=== PATIENT | female | born 1980 | race Caucasian/White ===

== ENCOUNTER 2016-11-03 10:25 | Emergency (ER) | payer OTHER ==
[~2016-11-03] VITALS: Ht 162.6 cm; Wt 94.1 kg
[~2016-11-03 10:25] MED LIST: ALBUAER19 INH; BACL10TA PO; FLUT220A INH; GABA400C PO
[2016-11-03 10:35] VITALS: TEMP 36.9; Ht 162.6 cm; Wt 94.1 kg
[2016-11-03] MEDS ORDERED: KETOROLAC TROMETHAMINE 60 MG/2 ML VIAL IM STA (10:39)
[2016-11-03] MEDS ORDERED: HYDROmorphone INJ 2 MG/ML SYR/VIAL IM STA (10:39)
[2016-11-03] MEDS ORDERED: PROMETHAZINE HCL INJ 25 MG/ML 1 ML VIAL IM STA (10:39)
--- NOTE | 2016-11-03 11:20 | EMERGENCY ROOM VISIT NOTE ---
History Report prepared by Jerry: [place] Ty Under the Supervision of: Dr. Isael Landers M.D. First contact with patient: 10:38 Chief Complaint: HEADACHE Stated Complaint: MIGRAINE, FELL MAY HAVE BROKEN RIB ON RT SIDE History of Present Illness The patient is a 36 year old female who presents to the Emergency Room with complaints of increased pain to her right ribs, radiating around to her right back, since suffering a fall 5 days prior to arrival. Currently, she rates her discomfort as a 9/10, which increases with attempts of deep breaths. 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 The patient denies hitting her head or losing consciousness during the fall, however, she developed a right sided headache last evening, which she states is typical of her normal migraines. The patient wears Fentanyl patches due to her history of chronic pain, but as her pain has continued to worsen, she came to the ED for further evaluation today. Patient denies recent fevers, chills, chest pain, abdominal pain, nausea, vomiting, diarrhea, urinary symptoms, or abnormal swelling to her extremities. Patient does have a history of blood clots and is currently on aspirin qd, but denies the use of other blood thinning medications. 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 A total of 10 systems reviewed and were otherwise negative. Past Medical & Surgical Medical Problems: (1) Blood clot (2) Bronchitis (3) Cervical cancer (4) Cervicalgia (5) GERD (gastroesophageal reflux disease) (6) Migraine (7) Orthopedic surgery (8) Pneumonia (9) Spina bifida Surgical Problems: (1) History of brain surgery Family History Diabetes mellitus Hypertension Kidney disease/stones Social History Smoking Status: Current Every Day Smoker Alcohol Use: none Drug Use: none Marital Status: single Housing Status: lives with family Occupation Status: disabled Current/Historical Medications Scheduled Aspirin (Aspirin), 81 MG PO QPM Baclofen (Lioresal), 20 MG PO QID Cyanocobalamin (Vitamin B-12), 1,000 MCG PO QPM Fluticasone Propionate (Flovent Hfa), 2 PUFFS INH BID Folic Acid (Folvite), 2 MG PO HS Gabapentin (Neurontin), 400 MG PO TID Magnesium Oxide (Mag-Ox), 400 MG PO BID Oxaprozin (Daypro), 600 MG PO BID Pyridoxine (Vitamin B6), 100 MG PO BID Scheduled PRN Albuterol Hfa (Ventolin Hfa), 2 PUFFS INH Q4 PRN for SHORTNESS OF BREATH/WHEEZE Clonazepam (Klonopin), 0.5 MG PO BID PRN for Anxiety Hydroxyzine HCl (Hydroxyzine Pamoate), 25 MG PO QID PRN for Anxiety Melatonin (Melatonin), 5 MG PO HS PRN for Sleep Omeprazole (Omeprazole), 20 MG PO BID PRN for Dyspepsia Ondansetron Hcl (Zofran), 4 MG PO TID PRN for Nausea Rizatriptan Benzoate (Rizatriptan Benzoate), 10 MG PO UD PRN for Migraine Allergies Coded Allergies: Pregabalin (Verified Adverse Reaction, Intermediate, Vision changes., 11/03) Physical Exam Vital Signs Date Time Temp Pulse Resp B/P Pulse Ox O2 Delivery O2 Flow Rate FiO2 11/03/16 12:37 75 18 127/93 99 11/03/16 10:35 36.9 78 18 128/87 99 Room Air Physical Exam GENERAL: Patient is a healthy-appearing well-nourished 36 year old female. HEAD: Normocephalic atraumatic EYES: Ocular movements intact pupils equal and react to light OROPHARYNX mucous membranes are moist no exudates present no erythema or edema present NECK: Supple no nuchal rigidity CHEST: Good equal expansion LUNGS: Clear and equal to auscultation CARDIAC: Normal S1 and S2 CHEST: Tender to the 10th rib on the right. ABDOMEN: Soft nontender no guarding BACK: No CVA tenderness EXTREMITIES: No pain upon palpation normal muscle strength in all groups no clubbing cyanosis or edema NEURO: Patient is following commands is answering questions appropriately. Alert and oriented x3 Cranial Nerves 2-12 grossly intact Medical Decision & Procedures ER Provider Diagnostic Interpretation: X-ray results as stated below per interpretation by me and the radiologist: RIGHT RIBS UNILATERAL WITH PA CHEST CLINICAL HISTORY: Right rib pain status post trauma COMPARISON STUDY: Chest x-ray dated 04/12/2016 FINDINGS: The heart is normal in size. There is no pneumothorax. There is no focal pulmonary consolidation. No right-sided rib fractures are visualized. IMPRESSION: No evidence of pneumothorax. No right-sided rib fractures are visualized. Electronically signed by: Anand Kwan M.D. 11/03/2016 12:08 PM Dictated Date/Time: 11/03/2016 12:07 PM Medications Administered Medications (Trade) Dose Ordered Sig/Payton Route Start Time Stop Time Status Last Admin Dose Admin Ketorolac Tromethamine (Toradol Inj) 60 mg NOW STAT IM 11/03/16 10:39 11/03/16 10:41 DC 11/03/16 10:56 60 MG Promethazine HCl (Phenergan Inj) 25 mg NOW STAT IM 11/03/16 10:39 11/03/16 10:41 DC 11/03/16 10:56 25 MG Hydromorphone HCl (Dilaudid Inj) 2 mg NOW STAT IM 11/03/16 10:39 11/03/16 10:41 DC 11/03/16 10:56 2 MG Hydromorphone HCl (Dilaudid Inj) 1 mg NOW STAT IM 11/03/16 12:21 11/03/16 12:22 DC 11/03/16 12:30 1 MG ED Course 1038: Past medical records reviewed. The patient was evaluated in room C5. A complete history and physical examination was performed. 1039: Dilaudid 2 mg IM, Phenergan 25 mg IM and Toradol 60 mg IM were ordered. 1221: Upon reevaluation, the patient was feeling improved, but was requesting additional pain medication before being discharged. Dilaudid 1 mg IM was ordered. I updated her on the results of her radiology reports. Discharge instructions were also discussed at this time. She verbalized her understanding and agreement with the treatment plan, and she is now ready for disposition. Medical Decision Differential diagnosis: Etiologies such as migraine headache, meningitis, sinusitis, CO exposure, ICH, SAH, infection, tumor, headache, sinus thrombosis, arterial dissection, as well as others were entertained. This is a 36-year-old female who presents emergency department complaining of headache. The patient is well-known to me. She has no evidence of meningitis encephalitis on examination. The patient states this is her normal migraine. She is also complaining of right chest wall pain. The patient reports she had a fall that has been having pain in the ribs ever since. Patient reports that the pain is worse with deep breath. For this reason x-rays were taken of the ribs. This did not show any evidence of acute fracture. He was given Dilaudid as well as Toradol and Phenergan. Repeat examination revealed improvement the patient's symptoms. The patient was also given an incentive spirometer for chest wall pain. Patient was in agreement with the treatment plan. Impression Primary Impression: Rib pain on right side Additional Impression: Headache Scribe Attestation The scribe's documentation has been prepared under my direction and personally reviewed by me in its entirety. I confirm that the note above accurately reflects all work, treatment, procedures, and medical decision making performed by me. Departure Information Dispostion Home / Self-Care Referrals No Doctor, Assigned (PCP) Forms HOME CARE DOCUMENTATION FORM, IMPORTANT VISIT INFORMATION Patient Instructions ED Contusion Rib, Headache Pain, Incentive Spirometer [place], My [facility] Additional Instructions You have been examined and treated today on an emergency basis only. This is not a substitute for, or an effort to provide, complete comprehensive medical care. It is impossible to recognize and treat all injuries or illnesses in a single emergency department visit. It is therefore important that you follow up closely with Dr Singleton. Call as soon as possible for an appointment. Thank you for your time and consideration. I look forward to speaking with you again soon. Please don't hesitate to call us if you have any questions. Problem Qualifiers Additional Impression: Headache Headache type: unspecified Headache chronicity pattern: acute headache Intractability: not intractable Qualified Codes: R51 - Headache
--- NOTE | 2016-11-03 12:10 | DIAGNOSTIC IMAGING REPORT ---
RIGHT RIBS UNILATERAL WITH PA CHEST CLINICAL HISTORY: Right rib pain status post trauma COMPARISON STUDY: Chest x-ray dated 04/12/2016 FINDINGS: The heart is normal in size. There is no pneumothorax. There is no focal pulmonary consolidation. No right-sided rib fractures are visualized. IMPRESSION: No evidence of pneumothorax. No right-sided rib fractures are visualized. Electronically signed by: Anand Kwan M.D. 11/03/2016 12:08 PM Dictated Date/Time: 11/03/2016 12:07 PM
[2016-11-03] MEDS ORDERED: HYDROmorphone INJ 1 MG/ML SYR IM STA (12:21)
[2016-11-03 12:37] VITALS: BP 127/93; PULSE 75; O2SAT 99
[2016-11-20] MEDS ORDERED: IMTIN5 (19:01)
[2017-07-16] MEDS ORDERED: VNTHFA/IN INH (10:52)
[2017-07-16] MEDS ORDERED: FLVHFA110 INH (10:52)
[2017-07-16] MEDS ORDERED: OXAP600T PO (11:26)
[2017-07-16] MEDS ORDERED: MELA5CAP PO (14:39)
[2017-07-16] MEDS ORDERED: FOLI1TAB7 PO (14:57)
[2017-07-16] MEDS ORDERED: RIZA1TAB11 PO (17:42)
[2017-07-16] MEDS ORDERED: VST25HP PO (17:42)
[2017-07-16] MEDS ORDERED: FNTTP50 TD (19:01)
[2017-07-16] MEDS ORDERED: GABA600T PO (19:01)
[2017-07-16] MEDS ORDERED: SILV1CRE73 TOP (19:01)
[2017-07-16] MEDS ORDERED: ASTN (19:01)
[2017-07-16] MEDS ORDERED: OXYSR10 PO (19:01)
[2017-07-16] MEDS ORDERED: BACL20TA PO (19:53)
[2017-07-16] MEDS ORDERED: CLON0.5T3 PO (20:20)
[2017-07-16] MEDS ORDERED: ASPI1TAB83 PO (21:16)
[2017-07-16] MEDS ORDERED: ONDA4TAB65 PO (21:16)
[2017-07-16] MEDS ORDERED: OMEP20TA PO (21:16)
[2017-07-16] MEDS ORDERED: CYAN10005 PO (22:20)
[2017-07-16] MEDS ORDERED: PYRI100T4 PO (22:20)
[2017-07-16] MEDS ORDERED: MAGN400T5 PO (22:31)
== END 2016-11-03 12:35 | disposition home or self-care (01) ==
LOC: C.EDB 10:27 → C.EDC 12:35
DX: R07.81 Pleurodynia (principal); R51 Headache; K21.9 Gastro-esophageal reflux disease without esophagitis; F17.200 Nicotine dependence, unspecified, uncomplicated

== ENCOUNTER 2016-11-20 17:32 | Emergency (ER) | payer OTHER ==
[~2016-11-20] VITALS: Ht 162.6 cm; Wt 93.2 kg
[~2016-11-20 17:32] MED LIST changes: -ALBUAER19 INH; -FLUT220A INH
[2016-11-20 17:40] VITALS: TEMP 36.5; Ht 162.6 cm; Wt 93.2 kg
[2016-11-20] MEDS ORDERED: HYDROmorphone INJ 2 MG/ML SYR/VIAL IM STA (18:30)
[2016-11-20] MEDS ORDERED: KETOROLAC TROMETHAMINE 60 MG/2 ML VIAL IM STA (18:30)
[2016-11-20] MEDS ORDERED: PROMETHAZINE HCL INJ 25 MG/ML 1 ML VIAL IM STA (18:30)
--- NOTE | 2016-11-20 18:30 | EMERGENCY ROOM VISIT NOTE ---
ED Visit Note First contact with patient: 18:05 CHIEF COMPLAINT: Migraine headache since this afternoon HISTORY OF PRESENT ILLNESS: Patient is a 36-year-old white female with past medical history significant for migraines, and presently on a treatment plan restricting her to 2 narcotic injections per month, who presents to the emergency department this evening accompanied by her mother for evaluation of a migraine that started this afternoon. She states that she took Maxalt without relief. She reports that she is out of her other migraine medications including Imitrex. She rates her pain a 8/10. She describes her headache as being frontal and temporal in nature, with associated nausea, photo and phonophobia and a visual aura. She states that it is typical of her usual migraine phenomenon. She did not use any other medications for her headache once it started. She is followed by Dr. Wood of neurology, and is scheduled to see him later this month. She has appointment with her PCP this coming week. There have been no changes in her medication regimen of late. Patient denies any recent illness, fever or chills. Denies weakness or numbness of the extremities. There is no difficulty with balance, coordination, speech or vision. No trauma to the head and no neck pain. Recent neuroimaging has been negative. REVIEW OF SYSTEMS: Review of systems as per HPI. All other systems reviewed were negative. 10 systems reviewed. PMH: Electronic medical records are reviewed and summarized as above/below. See Problem List. SOCIAL HISTORY: The patient lives locally. She is a smoker PHYSICAL EXAM: Vital Signs: Reviewed Nurse's notes, vital signs stable. Vital Signs: Reviewed Nurse's notes. General Appearance: Patient is an overweight 36-year-old white female who is awake and alert and laying on the gurney in a darkened room with a sweatshirt over her eyes. Eyes: Pupils equal round reactive to light extraocular muscles are intact, no proptosis, significant photophobia , precluding funduscopic exam ENT: Oropharynx is clear, mucous membranes are moist, tympanic membranes are clear bilaterally, no sinus or dental tenderness Neck: Supple, no cervical lymphadenopathy, no meningismus Heart: Regular rate and rhythm, S1 and S2 Lungs: Clear to auscultation bilaterally, no wheezes Rales or rhonchi, no increased work of breathing Abdomen: Soft nontender nondistended. Normal active bowel sounds. No rebound. No guarding. Back: No midline tenderness to palpation. : No CVA tenderness to palpation. Skin: Warm, no diaphoresis, no rashes. Extremities: No cyanosis, clubbing, or edema Neurologic: Patient is awake alert, and oriented x 3. Cranial nerves 2-12 are grossly intact. Motor 5 out of 5 strength bilateral upper extremities and lower extremities. No gross sensory deficits. Reflexes are 2+ throughout. EMERGENCY DEPARTMENT COURSE: The patient was seen and assessed as above.. The patient is well-known to the emergency department. She is on a 2 shot per month treatment protocol . This is her first visit for the month of November. She states this headache is very typical of her usual migraine. She has not had any neck pain, neck stiffness or nuchal rigidity. The patient was given 2 mg IM Dilaudid, 60 mg IM Toradol and 25 mg IM Phenergan. She was observed then discharged, rating her pain a 8/10 at discharge. Her mother is driving. The differential diagnosis includes acute intracranial bleed, meningitis, encephalitis, mass or mass effect, sinusitis, infection, tumor, headache, temporal arteritis and carbon monoxide exposure, and migraine. Problem List Medical Problems: (1) Blood clot Status: Chronic (2) Bronchitis Status: Chronic (3) Migraine Status: Chronic (4) Orthopedic surgery Status: Resolved (5) Pneumonia Status: Chronic Surgical Problems: (1) History of brain surgery Status: Resolved Current/Historical Medications Scheduled Aspirin (Aspirin), 81 MG PO QPM Azelastine Hcl (Astelin Nasal [place]), 2 SPRAYS NA BID Cyanocobalamin (Vitamin B-12), 1,000 MCG PO QPM Fentanyl (Duragesic), 50 MCG TD [id number] Fluticasone Propionate (Flovent Hfa), 2 PUFFS INH BID Folic Acid (Folvite), 1 MG PO HS Gabapentin (Neurontin), 600 MG PO TID Magnesium Oxide (Mag-Ox), 400 MG PO BID Omeprazole (Omeprazole), 20 MG PO BID Oxaprozin (Daypro), 600 MG PO BID Pyridoxine (Vitamin B6), 100 MG PO BID Silver Sulfadiazine (Silvadene), 1 APPLN TOP DAILY Sumatriptan Succinate (Imitrex Nasal [place]), 1 SPRAY NA PRN UD Scheduled PRN Albuterol Hfa (Ventolin Hfa), 2 PUFFS INH QID PRN for SHORTNESS OF BREATH/WHEEZE Clonazepam (Klonopin), 0.5 MG PO BID PRN for Anxiety Cyclobenzaprine Hcl (Flexeril), 5 MG PO TID PRN for Muscle Spasms Hydroxyzine HCl (Hydroxyzine Pamoate), 25 MG PO QID PRN for Anxiety Melatonin (Melatonin), 5 MG PO HS PRN for Sleep Ondansetron Hcl (Zofran), 4 MG PO TID PRN for Nausea Oxycodone HCl (Oxycontin), 10 MG PO Q12 PRN for Pain Rizatriptan Benzoate (Rizatriptan Benzoate), 10 MG PO UD PRN for Migraine Allergies Coded Allergies: Pregabalin (Verified Adverse Reaction, Intermediate, Vision changes., 11/03) Vital Signs Date Time Temp Pulse Resp B/P Pulse Ox O2 Delivery O2 Flow Rate FiO2 11/20/16 18:51 89 16 147/92 99 11/20/16 17:40 36.5 100 20 127/89 97 Room Air Medications Administered Medications (Trade) Dose Ordered Sig/Payton Route Start Time Stop Time Status Last Admin Dose Admin Hydromorphone HCl (Dilaudid Inj) 2 mg NOW STAT IM 11/20/16 18:30 11/20/16 18:31 DC 11/20/16 18:46 2 MG Ketorolac Tromethamine (Toradol Inj) 60 mg NOW STAT IM 11/20/16 18:30 11/20/16 18:31 DC 11/20/16 18:45 60 MG Promethazine HCl (Phenergan Inj) 25 mg NOW STAT IM 11/20/16 18:30 11/20/16 18:31 DC 11/20/16 18:45 25 MG Departure Information Impression Primary Impression: Headache Referrals Jayden Singleton D.OCaleb (PCP) Patient Instructions My [facility] Additional Instructions DO NOT drive, drink alcohol, operate machinery, or perform dangerous activities today. You were given medications in the ER that can affect your ability to safely function or operate a vehicle. Rest today in a quiet, peaceful, dark environment and get a full 8-10 hrs of sleep tonight. Avoid loud noises, smoke/smoking, alcohol, bright lights, stress, or physical exertion today to minimize the chance the headache may return. Continue current medications. Return to the ER for passing out, worsening headache, vision problems, neck stiffness/pain, fevers, vomiting, worsening of your condition, or as needed. Follow up with your primary physician and neurologist as you have scheduled.
[2016-11-20 18:51] VITALS: BP 147/92; PULSE 89; O2SAT 99
[2016-11-20] MEDS ORDERED: CYCL5TAB PO (19:01)
[2017-07-20] MEDS ORDERED: FLVHFA110 INH (10:52)
[2017-07-20] MEDS ORDERED: VNTHFA/IN INH (10:52)
[2017-07-20] MEDS ORDERED: OXAP600T PO (11:26)
== END 2016-11-20 18:52 | disposition home or self-care (01) ==
LOC: C.EDB 17:32 → C.EDD 18:52
DX: R51 Headache (principal); Z79.82 Long term (current) use of aspirin; Z79.899 Other long term (current) drug therapy

== ENCOUNTER 2016-12-13 21:07 | Emergency (ER) | payer OTHER ==
[~2016-12-13] VITALS: Ht 162.6 cm; Wt 93.5 kg
[~2016-12-13 21:07] MED LIST changes: -BACL10TA PO; +CYCL5TAB PO; -GABA400C PO
[2016-12-13 21:09] VITALS: TEMP 36.5; Ht 162.6 cm; Wt 93.5 kg
[2016-12-13] MEDS ORDERED: HYDROmorphone INJ 2 MG/ML SYR/VIAL IM STA (21:29)
[2016-12-13] MEDS ORDERED: KETOROLAC TROMETHAMINE 60 MG/2 ML VIAL IM STA (21:29)
[2016-12-13] MEDS ORDERED: PROMETHAZINE HCL INJ 25 MG/ML 1 ML VIAL IM STA (21:29)
[2016-12-13 21:54] VITALS: BP 128/84; PULSE 98; O2SAT 99
--- NOTE | 2016-12-14 15:57 | EMERGENCY ROOM VISIT NOTE ---
ED Visit Note First contact with patient: 21:13 CHIEF COMPLAINT: Migraine headache HISTORY OF PRESENT ILLNESS: This 36 year old female patient presented to the emergency department with a gradual onset of a severe generalized headache that started earlier today. The patient states the migraine is similar to their typical migraines. There has been associated photophobia, phonophobia, nausea and vomiting. The patient denies fever or chills recently, and there is no weakness or numbness of the extremities. There is no difficulty with speech or vision. No trauma to the head and no neck pain. The pain is severe, constant, and it is slowly increasing in severity. The patient rates the pain as dull and 8/10. The patient has taken nothing with relief. This is not the worst headache of the life and is similar to previous migraines. Previous imaging studies of the brain have been normal. REVIEW OF SYSTEMS: A review of systems was performed with positives and pertinent negatives listed in the history of present illness. All other systems were reviewed and are negative. ALLERGIES: See EMR MEDICATIONS: See EMR PMH: History of chronic migraines SOCIAL HISTORY: Lives locally PHYSICAL EXAM: Vital Signs: Reviewed Nurse's notes, vital signs stable. GENERAL: White female, who appears in pain, but non toxic in appearance and in no acute distress. MENTAL STATUS: Alert, oriented, and coherent. HEENT: Normocephalic. PERRLA. EOMI. Nares patent without nuchal rigidity. Tympanic membranes pearly valentin without erythema or effusion bilaterally. Mucous membranes moist. NECK: Supple, no nuchal rigidity, nontender, no lymphadenopathy. HEART: Regular rhythm and normal rate without murmurs, ectopy, gallops, or rubs. LUNGS: Clear to auscultation bilaterally without wheezes, rales or rhonchi. No dullness to percussion. No accessory muscle use. No retractions. SKIN: Normal. NEUROLOGICAL: Pupils are round, equal and react to light. The optic fundi are normal and the discs are flat. The patient moves all extremities well and the gait is normal. EMERGENCY DEPARTMENT COURSE: I examined the patient. The patient is on a 2 shot narcotic injection per month treatment plan for their migraines. The patient was given 2 mg IM Dilaudid, 60 mg IM Toradol, 25 mg IM Phenergan per their usual protocol. The differential diagnosis includes acute intracranial bleed, meningitis, encephalitis, mass or mass effect, sinusitis, infection, tumor, headache, temporal arteritis and carbon monoxide exposure, and migraine. The patient was discharged home in stable condition with her mother driving. Problem List Medical Problems: (1) Blood clot Status: Chronic (2) Bronchitis Status: Chronic (3) Migraine Status: Chronic (4) Orthopedic surgery Status: Resolved (5) Pneumonia Status: Chronic Surgical Problems: (1) History of brain surgery Status: Resolved Current/Historical Medications Scheduled Aspirin (Aspirin), 81 MG PO QPM Azelastine Hcl (Astelin Nasal [place]), 2 SPRAYS NA BID Cyanocobalamin (Vitamin B-12), 1,000 MCG PO QPM Fentanyl (Duragesic), 50 MCG TD CQ72HR Fluticasone Propionate (Flovent Hfa), 2 PUFFS INH BID Folic Acid (Folvite), 1 MG PO HS Gabapentin (Neurontin), 600 MG PO TID Magnesium Oxide (Mag-Ox), 400 MG PO BID Omeprazole (Omeprazole), 20 MG PO BID Oxaprozin (Daypro), 600 MG PO BID Pyridoxine (Vitamin B6), 100 MG PO BID Silver Sulfadiazine (Silvadene), 1 APPLN TOP DAILY Sumatriptan Succinate (Imitrex Nasal [place]), 1 SPRAY NA PRN UD Scheduled PRN Albuterol Hfa (Ventolin Hfa), 2 PUFFS INH QID PRN for SHORTNESS OF BREATH/WHEEZE Clonazepam (Klonopin), 0.5 MG PO BID PRN for Anxiety Cyclobenzaprine Hcl (Flexeril), 5 MG PO TID PRN for Muscle Spasms Hydroxyzine HCl (Hydroxyzine Pamoate), 25 MG PO QID PRN for Anxiety Melatonin (Melatonin), 5 MG PO HS PRN for Sleep Ondansetron Hcl (Zofran), 4 MG PO TID PRN for Nausea Oxycodone HCl (Oxycontin), 10 MG PO Q12 PRN for Pain Rizatriptan Benzoate (Rizatriptan Benzoate), 10 MG PO UD PRN for Migraine Allergies Coded Allergies: Pregabalin (Verified Adverse Reaction, Intermediate, Vision changes., 12/13) Vital Signs Date Time Temp Pulse Resp B/P Pulse Ox O2 Delivery O2 Flow Rate FiO2 12/13/16 21:54 98 18 128/84 99 Room Air 12/13/16 21:09 36.5 97 18 137/88 99 Room Air Medications Administered Medications (Trade) Dose Ordered Sig/Payton Route Start Time Stop Time Status Last Admin Dose Admin Hydromorphone HCl (Dilaudid Inj) 2 mg NOW STAT IM 12/13/16 21:29 12/13/16 21:30 DC 12/13/16 21:42 2 MG Ketorolac Tromethamine (Toradol Inj) 60 mg NOW STAT IM 12/13/16 21:29 12/13/16 21:30 DC 12/13/16 21:44 60 MG Promethazine HCl (Phenergan Inj) 25 mg NOW STAT IM 12/13/16 21:29 12/13/16 21:30 DC 12/13/16 21:44 25 MG Departure Information Impression Primary Impression: Migraine Dispostion Home / Self-Care Condition GOOD Referrals Jayden Singleton D.OCaleb (PCP) Forms HOME CARE DOCUMENTATION FORM, IMPORTANT VISIT INFORMATION Patient Instructions My [facility] Additional Instructions You were seen and evaluated today on an emergency basis only. This is not a substitute for, or an effort to provide, complete comprehensive medical care. It is not possible to recognize and treat all injuries or illnesses in a single emergency department visit. For this reason it is recommended that you followup with your primary care physician or neurologist this week for ongoing care and evaluation. DO NOT drive, drink alcohol, operate machinery, or perform dangerous activities today. You were given medications in the ER that can affect your ability to safely function or operate a vehicle. Rest today in a quiet, peaceful, dark environment and get a full 8-10 hrs of sleep tonight. Avoid loud noises, smoke/smoking, alcohol, bright lights, stress, or physical exertion today to minimize the chance the headache may return. Continue current medications. Ibuprofen(Motrin, Advil) may be used for fever or pain. Use 600mg every six hours as needed. Take with food. Avoid using more than 2400mg in a 24 hour period. Do not use 2400mg per day for more than three consecutive days without physician direction. Prolonged inappropriate use can lead to stomach upset or ulcers. (AND/OR) Acetaminophen(Tylenol) may be used for fever or pain. Use 1000mg every six hours as needed. Avoid using more than 4000mg in a 24 hour period. Return to the ER for passing out, worsening headache, vision problems, neck stiffness/pain, fevers, vomiting, worsening of your condition, or as needed.
[2017-07-20] MEDS ORDERED: FLVHFA110 INH (10:52)
[2017-07-20] MEDS ORDERED: VNTHFA/IN INH (10:52)
[2017-07-20] MEDS ORDERED: OXAP600T PO (11:26)
== END 2016-12-13 22:06 | disposition home or self-care (01) ==
LOC: C.EDB 21:08 → C.EDD 22:06
DX: G43.909 Migraine, unspecified, not intractable, without status migrainosus (principal); Z79.82 Long term (current) use of aspirin

== ENCOUNTER 2017-01-07 17:18 | Emergency (ER) | payer OTHER ==
[~2017-01-07] VITALS: Ht 162.6 cm; Wt 91.1 kg
[~2017-01-07 17:18] MED LIST changes: +IMTIN5
[2017-01-07 17:25] VITALS: TEMP 36.3; Ht 162.6 cm; Wt 91.1 kg
[2017-01-07] MEDS ORDERED: HYDROmorphone INJ 2 MG/ML SYR/VIAL IM STA (18:22)
[2017-01-07] MEDS ORDERED: PROMETHAZINE HCL INJ 25 MG/ML 1 ML VIAL IM STA (18:22)
[2017-01-07] MEDS ORDERED: KETOROLAC TROMETHAMINE 60 MG/2 ML VIAL IM STA (18:22)
[2017-01-07 19:07] VITALS: BP 128/89; PULSE 84; O2SAT 98
--- NOTE | 2017-01-08 00:43 | EMERGENCY ROOM VISIT NOTE ---
ED Visit Note First contact with patient: 17:30 CHIEF COMPLAINT: Migraine headache HISTORY OF PRESENT ILLNESS: Ms. George is a 36 year-old white female who ambulates into the ED complaining of a migraine headache. Patient reports she has a history of migraine headaches. Her current headache started approximately 6 hours ago. It was initially mild and gradually increased in intensity. This is similar to her previous migraine headaches and not the worst migraine of her life. She reports he initially had a flashing light sensation as an aura. Currently she describes the headache as a throbbing sensation/pain in the behind the eyes. She rates the pain a 8/10. The pain is nonradiating. She has not identified any aggravating or alleviating factors related to the pain. She does report she used Imitrex nasal spray prior to arrival at the hospital with no relief of her discomfort. Associated with her pain she reports she's been having light sensitivity, hearing sensitivity, nausea and 2 episodes of vomiting. She denies fevers, chills, sweats, skin eruptions, skin color changes, recent head trauma, dizziness, lightheadedness, visual changes, hearing changes, difficulty speaking, difficulty swallowing, difficulty ambulating/coordinating body movements, neck pain/stiffness, upper respiratory tract symptoms, shortness of breath, abdominal pain, recent dental pain/surgery, neck pain/ surgery. REVIEW OF SYSTEMS: As noted above in History of Present Illness; all body systems were reviewed with the patient and found to be negative unless noted above otherwise. PAST MEDICAL HISTORY: (1) Blood clot (2) Bronchitis (3) Cervical cancer (4) Cervicalgia (5) GERD (gastroesophageal reflux disease) (6) Migraine (7) Orthopedic surgery (8) Pneumonia (9) Spina bifida Surgical Problems: (1) History of brain surgery CURRENT MEDICATIONS: Medications Dose Route/Sig Max Daily Dose Days Date Category Dose Instructions Oxycontin (Oxycodone HCl) 10 Mg Tabcr 10 Mg PO Q12 PRN 11/20/16 Reported Neurontin (Gabapentin) 600 Mg Tab 600 Mg PO TID 11/20/16 Reported Duragesic (Fentanyl) 50 Mcg Tdsy 50 Mcg TD CQ72HR 11/20/16 Reported Flexeril (Cyclobenzaprine Hcl) 5 Mg Tab 5 Mg PO TID PRN 11/20/16 Reported PRN Imitrex Nasal [place] (Sumatriptan Succinate) 5 Mg Aers 1 [place] NA PRN UD 11/20/16 Reported Silvadene (Silver Sulfadiazine) 1 % Cre 1 Appln TOP DAILY 11/20/16 Reported Astelin Nasal [place] (Azelastine Hcl) 200 Sprays/30 Ml [place] 2 Sprays NA BID 11/20/16 Reported Flovent Hfa (Fluticasone Propionate) 120 Puffs/73079 Mcg Aero 2 Puffs INH BID 11/03/16 Reported Ventolin Hfa (Albuterol) 200 Puffs/71393 Mcg Aers 2 Puffs INH QID PRN 11/03/16 Reported Daypro (Oxaprozin) 600 Mg Tab 600 Mg PO BID 03/02/16 Reported Klonopin (Clonazepam) 0.5 Mg Tab 0.5 Mg PO BID PRN 08/31/15 Reported Hydroxyzine Pamoate (Hydroxyzine HCl) 25 Mg Tab 25 Mg PO QID PRN 12/18/14 Reported Rizatriptan Benzoate 10 Mg Tab 10 Mg PO UD PRN 12/18/14 Reported TAKE 1 TABLET AT ONSET OF HEADACHE, MAY REPEAT EVERY 2 HOURS FOR UP TO 2 TIMES IF NEEDED. MAXIMUM 3 TABLETS IN 24 HOURS. Aspirin 81 Mg Tab 81 Mg PO QPM 07/15/13 Reported Omeprazole 20 Mg Tab 20 Mg PO BID 07/15/13 Reported Zofran (Ondansetron Hcl) 4 Mg Tab 4 Mg PO TID PRN 07/15/13 Reported Melatonin 5 Mg Cap 5 Mg PO HS PRN 12/16/12 Reported Mag-Ox (Magnesium Oxide) 400 Mg Tab 400 Mg PO BID 08/27/12 Reported Folvite (Folic Acid) 1 Mg Tab 1 Mg PO HS 08/17/12 Reported Vitamin B6 (Pyridoxine HCl) 100 Mg Tab 100 Mg PO BID 02/21/12 Reported Vitamin B-12 (Cyanocobalamin) 1,000 Mcg Tab 1,000 Mcg PO QPM 02/21/12 Reported ALLERGIES TO MEDICATIONS: Pregabalin. SOCIAL HISTORY: Patient is not employed; she feels safe in her home environment ; she admits to smoking cigarettes and denies alcohol use. PHYSICAL EXAM: Vital Signs: Date Time Temp Pulse Resp B/P Pulse Ox O2 Delivery O2 Flow Rate FiO2 01/07/17 19:07 84 16 128/89 98 01/07/17 17:25 36.3 93 20 128/73 100 Room Air GENERAL: 36 year-old white female in moderate distress due to pain, afebrile and hemodynamically stable. Found lying in a darkened room. NEUROLOGIC: Awake, alert and oriented to person place and time. Answering questions appropriately and following commands. Cranial nerves II-XII grossly intact. No focal neurologic deficits noted. SKIN: Warm, dry and pink. No rashes, lesions or soft tissue trauma noted. HEENT: Normocephalic, atraumatic. Pupils equal, round and reactive. Extraocular movements intact and there is no nystagmus. Sclera anicteric. Ears , nose and oropharynx clear. Funduscopic exam deferred due to light sensitivity. NECK: Soft and supple. No tenderness through the central cervical region or cervical musculature. Negative Kernigs and negative Brudzinski signs. No lymphadenopathy, jugular venous distention, or bruits noted. THORAX: Lungs clear to auscultation and equal bilaterally with no wheezing, crackles, rhonchi or stridor and equal chest wall movements. HEART: Regular rate and rhythm with no murmurs, rubs or gallops. ABDOMEN: Soft and nontender with bowel sounds present in all quadrants; no rigidity, rebound tenderness, organomegaly or guarding. MUSCULOSKELETAL: Full range of motion of all joints without any significant discomfort and the gait is normal. ED COURSE: Patient is assessed with history and physical examination. Patient received 2 mg of the Dilaudid IM, 60 mg of Toradol IM and 25 mg of Phenergan IM for her symptoms. Patient was reassessed. Patient was educated about her condition and instructed on her treatment plan; she verbalized understanding and agreement with this plan. CLINICAL IMPRESSION: Migraine headache. DECISION MAKIN-year-old female who presents for evaluation of headache. She is afebrile, well appearing, and hemodynamically stable. She has no signs of a sinus, dental , or ear infection and no evidence of meningismus. She is neurologically intact. I do not suspect a headache to be secondary to a subarachnoid hemorrhage, meningitis, encephalitis, or intracranial mass lesion. DISPOSITION: Patient was discharged to home in stable condition; prior to departure she was reassessed and subjectively reported she was feeling the same. DISCHARGE INSTRUCTIONS: Rest at home, in a quiet darkened room and allow the medication to work for the pain. Continue to follow up current treatment plan prescribed by your physician for your migraine headaches. See your own doctor in follow-up this week for continued care and treatment. Return to the emergency department as needed worsening/uncontrolled headache, any abnormal neurological symptoms, fevers, in accordance with her pain management plan or any new/concerning symptoms.
[2017-07-16] MEDS ORDERED: VNTHFA/IN INH (10:52)
[2017-07-16] MEDS ORDERED: FLVHFA110 INH (10:52)
[2017-07-16] MEDS ORDERED: OXAP600T PO (11:26)
[2017-07-16] MEDS ORDERED: MELA5CAP PO (14:39)
[2017-07-16] MEDS ORDERED: FOLI1TAB7 PO (14:57)
[2017-07-16] MEDS ORDERED: RIZA1TAB11 PO (17:42)
[2017-07-16] MEDS ORDERED: VST25HP PO (17:42)
[2017-07-16] MEDS ORDERED: GABA600T PO (19:01)
[2017-07-16] MEDS ORDERED: FNTTP50 TD (19:01)
[2017-07-16] MEDS ORDERED: OXYSR10 PO (19:01)
[2017-07-16] MEDS ORDERED: SILV1CRE73 TOP (19:01)
[2017-07-16] MEDS ORDERED: ASTN (19:01)
[2017-07-16] MEDS ORDERED: BACL20TA PO (19:53)
[2017-07-16] MEDS ORDERED: CLON0.5T3 PO (20:20)
[2017-07-16] MEDS ORDERED: ONDA4TAB65 PO (21:16)
[2017-07-16] MEDS ORDERED: ASPI1TAB83 PO (21:16)
[2017-07-16] MEDS ORDERED: OMEP20TA PO (21:16)
[2017-07-16] MEDS ORDERED: CYAN10005 PO (22:20)
[2017-07-16] MEDS ORDERED: PYRI100T4 PO (22:20)
[2017-07-16] MEDS ORDERED: MAGN400T5 PO (22:31)
== END 2017-01-07 19:09 | disposition home or self-care (01) ==
LOC: C.EDB 17:19 → C.EDD 19:09
DX: G43.909 Migraine, unspecified, not intractable, without status migrainosus (principal); Z85.41 Personal history of malignant neoplasm of cervix uteri; K21.9 Gastro-esophageal reflux disease without esophagitis; Z87.01 Personal history of pneumonia (recurrent); Q05.9 Spina bifida, unspecified; Z79.82 Long term (current) use of aspirin; Z79.899 Other long term (current) drug therapy; F17.210 Nicotine dependence, cigarettes, uncomplicated

== ENCOUNTER 2017-01-11 22:20 | Emergency (ER) | payer OTHER ==
[~2017-01-11] VITALS: Ht 162.6 cm; Wt 94.4 kg
[~2017-01-11 22:20] MED LIST changes: -IMTIN5
[2017-01-11 22:25] VITALS: TEMP 37; Ht 162.6 cm; Wt 94.4 kg
[2017-01-11] MEDS ORDERED: KETOROLAC TROMETHAMINE 60 MG/2 ML VIAL IM STA (23:56)
[2017-01-11] MEDS ORDERED: PROMETHAZINE HCL INJ 25 MG/ML 1 ML VIAL IM STA (23:56)
--- NOTE | 2017-01-11 23:59 | EMERGENCY ROOM VISIT NOTE ---
ED Visit Note First contact with patient: 23:29 CHIEF COMPLAINT: Migraine headache HISTORY OF PRESENT ILLNESS: This 36-year-old female patient presented to the emergency department this morning while getting an x-ray of her neck with a gradual onset of a severe generalized headache that started this morning. The patient states the migraine is similar to their typical migraines. There has been associated photophobia, phonophobia, nausea without vomiting. The patient denies fever or chills recently, and there is no weakness or numbness of the extremities. There is no difficulty with speech or vision. No trauma to the head and no neck pain. The pain is severe, constant, and it is slowly increasing in severity. The patient rates the pain as constant and 8/10. The patient has taken Maxalt without relief of symptoms. This is not the worst headache of the life and is similar to previous migraines. Previous imaging studies of the brain have been normal. Patient follows with Dr. Wood. Patient reports that she recently started to go to pain management in [place]. She is been receiving oxycodone as well as fentanyl patches for her symptoms. This has been within the last month. REVIEW OF SYSTEMS: A review of systems was performed with positives and pertinent negatives listed in the history of present illness. All other systems were reviewed and are negative. ALLERGIES: Pregabalin MEDICATIONS: Reviewed and discussed with the patient. PMH: Migraine headaches SOCIAL HISTORY: Patient is a 36-year-old female who lives at home with family. PHYSICAL EXAM: VITAL SIGNS - Vital signs and nursing notes were reviewed. GENERAL - 36-year-old female appearing her stated age who is in no acute distress. Communicates well with provider and answers questions appropriately. HEAD - Normocephalic, Atraumatic. No Dumont's Sign or Raccoon's Eyes. No depressed skull fractures palpable. EYES - PERRL with EOMI bilaterally. Sclera anicteric. Palpebral conjunctiva pink and moist with no injection noted. EARS - No deformities of external structures noted on gross examination bilaterally. No pain elicited with palpation of the tragus bilaterally. External auditory canals without discharge or otorrhea. Tympanic membranes pearly valentin without retraction or bulging. No fluid or purulent material visualized behind the TM. Handle of malleus, umbo, cone of light, pars tensa/ flaccid all easily visualized. NOSE - Midline and without cyanosis. No epistaxis or purulent drainage noted. Septum midline without deviation or septal hematoma noted. MOUTH/OROPHARYNX - Without perioral cyanosis. Buccal mucosa pink and moist and without leukoplakia. Tongue midline with equal elevation of palate bilaterally. No tonsillar hypertrophy, erythema, or exudates noted. NECK - Neck with FROM. Supple to palpation. No lymphadenopathy noted. No nuchal rigidity. LUNGS - Chest wall symmetric without accessory muscle use, intercostals retractions, or central cyanosis. Normal vesicular breath sounds CTA B/L. No wheezes, rales, or rhonchi appreciated. CARDIAC - RRR with S1/S2. No murmur, rubs, or gallops appreciated. EXTREMITIES - No pretibial edema present. +3/5 radial and dorsalis pedis pulses palpated throughout. FROM with no tremors, fasciculations, or clonus noted on PROM throughout. +5/5 strength noted in UE/LE bilaterally. NEUROLOGIC - Cranial nerves II through XII grossly intact. Sensory intact to light touch throughout. Patellar reflexes +1/4. Patient able to perform rapid alternating movements appropriately. Negative Drift. PSYCH - A&Ox3 and cooperates fully with examiner. Pt is very pleasant and interacts well with examiner. EMERGENCY DEPARTMENT COURSE: I examined the patient. The patient is nonicteric treatment plan, however she is essentially place her cell phone and treatment plan by arriving in the emergency department approximate 2 times per month for her migraines. The patient was given 2 mg Dilaudid, 25 mg Phenergan, and 60 mg Toradol intramuscularly per their usual protocol. The differential diagnosis includes acute intracranial bleed, meningitis, encephalitis, mass or mass effect , sinusitis, infection, tumor, headache, temporal arteritis and carbon monoxide exposure, and migraine. The patient was discharged home in stable condition with her family member driving. DIAGNOSIS: Migraine headache DISCHARGE INSTRUCTIONS & TREATMENT: You have been treated in the Emergency Department for a Headache. You have received pain medicine in the emergency department which impairs your ability to operate a vehicle. It is illegal for you to drive after receiving these medicines. For pain control, you can use the following [id number] medicines (if >12 yo): - Regular strength (325mg/tab) Tylenol (acetaminophen) 2 tabs every 4-6 hours as needed. Do not exceed 12 tablets in a 24 hour period. Avoid taking more than 4 grams (4000 mg) of Tylenol per day. This includes any other sources of acetaminophen you may take on a regular basis. - Regular strength (200 mg/tab) Advil (ibuprofen) 1-2 tabs every 4-6 hours as needed. Do not exceed a dose of 3200 mg per day. You should relax in a quiet, dark place for the rest of the day. Avoid any possible triggers including: cigarette smoke, caffeine, nicotine, chocolate, wine, beer, loud noises or music, or bright lights. You should schedule a follow-up appointment in 2-3 days with your Primary Care Provider or established Neurologist for further evaluation and treatment of your Headache. Return to the Emergency Department if your current symptoms worsen despite treatment course outlined above, or if you develop any of the following symptoms : intractable pain despite aforementioned treatment course, visual disturbances , loss of vision, unilateral weakness or facial drooping, slurring of speech, loss of coordination, or loss of consciousness. Problem List Medical Problems: (1) Blood clot Status: Chronic (2) Bronchitis Status: Chronic (3) Migraine Status: Chronic (4) Orthopedic surgery Status: Resolved (5) Pneumonia Status: Chronic Surgical Problems: (1) History of brain surgery Status: Resolved Current/Historical Medications Scheduled Aspirin (Aspirin), 81 MG PO QPM Azelastine Hcl (Astelin Nasal [place]), 2 SPRAYS NA BID Cyanocobalamin (Vitamin B-12), 1,000 MCG PO QPM Fentanyl (Duragesic), 50 MCG TD CQ72HR Fluticasone Propionate (Flovent Hfa), 2 PUFFS INH BID Folic Acid (Folvite), 1 MG PO HS Gabapentin (Neurontin), 600 MG PO TID Magnesium Oxide (Mag-Ox), 400 MG PO BID Omeprazole (Omeprazole), 20 MG PO BID Oxaprozin (Daypro), 600 MG PO BID Pyridoxine (Vitamin B6), 100 MG PO BID Silver Sulfadiazine (Silvadene), 1 APPLN TOP DAILY Sumatriptan Succinate (Imitrex Nasal [place]), 1 SPRAY NA PRN UD Scheduled PRN Albuterol Hfa (Ventolin Hfa), 2 PUFFS INH QID PRN for SHORTNESS OF BREATH/WHEEZE Clonazepam (Klonopin), 0.5 MG PO BID PRN for Anxiety Cyclobenzaprine Hcl (Flexeril), 5 MG PO TID PRN for Muscle Spasms Hydroxyzine HCl (Hydroxyzine Pamoate), 25 MG PO QID PRN for Anxiety Melatonin (Melatonin), 5 MG PO HS PRN for Sleep Ondansetron Hcl (Zofran), 4 MG PO TID PRN for Nausea Oxycodone HCl (Oxycontin), 10 MG PO Q12 PRN for Pain Rizatriptan Benzoate (Rizatriptan Benzoate), 10 MG PO UD PRN for Migraine Allergies Coded Allergies: Pregabalin (Verified Adverse Reaction, Intermediate, Vision changes., 01/11) Vital Signs Date Time Temp Pulse Resp B/P Pulse Ox O2 Delivery O2 Flow Rate FiO2 01/12/17 00:42 96 20 151/93 96 01/11/17 22:25 37.0 89 18 126/88 97 Room Air Medications Administered Medications (Trade) Dose Ordered Sig/[place]ton Route Start Time Stop Time Status Last Admin Dose Admin Hydromorphone HCl (Dilaudid Inj) 2 mg NOW ONCE IM 01/12/17 00:00 01/12/17 00:01 DC 01/12/17 00:09 2 MG Ketorolac Tromethamine (Toradol Inj) 60 mg NOW STAT IM 01/11/17 23:56 01/11/17 23:58 DC 01/12/17 00:09 60 MG Promethazine HCl (Phenergan Inj) 25 mg NOW STAT IM 01/11/17 23:56 01/11/17 23:58 DC 01/12/17 00:10 25 MG Departure Information Impression Primary Impression: Migraine Dispostion Home / Self-Care Condition GOOD Referrals Jayden Singleton, D.O. (PCP) Patient Instructions ED Headache Migraine, My [facility] Additional Instructions You have been treated in the Emergency Department for a Headache. You have received pain medicine in the emergency department which impairs your ability to operate a vehicle. It is illegal for you to drive after receiving these medicines. For pain control, you can use the following [id number] medicines (if >12 yo): - Regular strength (325mg/tab) Tylenol (acetaminophen) 2 tabs every 4-6 hours as needed. Do not exceed 12 tablets in a 24 hour period. Avoid taking more than 4 grams (4000 mg) of Tylenol per day. This includes any other sources of acetaminophen you may take on a regular basis. - Regular strength (200 mg/tab) Advil (ibuprofen) 1-2 tabs every 4-6 hours as needed. Do not exceed a dose of 3200 mg per day. You should relax in a quiet, dark place for the rest of the day. Avoid any possible triggers including: cigarette smoke, caffeine, nicotine, chocolate, wine, beer, loud noises or music, or bright lights. You should schedule a follow-up appointment in 2-3 days with your Primary Care Provider or established Neurologist for further evaluation and treatment of your Headache. Return to the Emergency Department if your current symptoms worsen despite treatment course outlined above, or if you develop any of the following symptoms : intractable pain despite aforementioned treatment course, visual disturbances , loss of vision, unilateral weakness or facial drooping, slurring of speech, loss of coordination, or loss of consciousness. Problem Qualifiers Primary Impression: Migraine Migraine type: unspecified Status migrainosus presence: without status migrainosus Intractability: not intractable Qualified Codes: G43.909 - Migraine, unspecified, not intractable, without status migrainosus
[2017-01-12] MEDS ORDERED: HYDROmorphone INJ 2 MG/ML SYR/VIAL IM ONE
[2017-01-12 00:42] VITALS: BP 151/93; PULSE 96; O2SAT 96
[2017-07-20] MEDS ORDERED: FLVHFA110 INH (10:52)
[2017-07-20] MEDS ORDERED: VNTHFA/IN INH (10:52)
[2017-07-20] MEDS ORDERED: OXAP600T PO (11:26)
== END 2017-01-12 00:44 | disposition home or self-care (01) ==
LOC: C.EDB 22:21
DX: G43.909 Migraine, unspecified, not intractable, without status migrainosus (principal); Z87.01 Personal history of pneumonia (recurrent); Z79.82 Long term (current) use of aspirin; Z79.899 Other long term (current) drug therapy

== ENCOUNTER 2017-01-29 15:30 | Emergency (ER) | payer OTHER ==
[~2017-01-29] VITALS: Ht 162.6 cm; Wt 89.0 kg
[2017-01-29 15:33] VITALS: TEMP 36.6; Ht 162.6 cm; Wt 89.0 kg
[2017-01-29] MEDS ORDERED: PROMETHAZINE HCL INJ 25 MG/ML 1 ML VIAL IM STA (15:55)
[2017-01-29] MEDS ORDERED: KETOROLAC TROMETHAMINE 60 MG/2 ML VIAL IM STA (15:55)
[2017-01-29] MEDS ORDERED: HYDROmorphone INJ 2 MG/ML SYR/VIAL IM PRN (16:00)
[2017-01-29] MEDS ORDERED: ONDANSETRON 4MG OD TAB ONE (16:58)
[2017-01-29 17:58] VITALS: BP 146/87; PULSE 64; O2SAT 99
--- NOTE | 2017-01-29 21:27 | EMERGENCY ROOM VISIT NOTE ---
History Report prepared by Radhaibcharles: Phoenix Paez Under the Supervision of: Dr. Andrew Abreu D.O. First contact with patient: 15:45 Chief Complaint: FLU LIKE SX Stated Complaint: MIGRAINE/FLU History of Present Illness The patient is a 36 year old female who presents to the Emergency Room with complaints of a persistent headache that started this morning. The headache is on the right side. The headache feels typical of one of her migraines. She has migraines 2-3 times per week. She has also been experiencing nausea & vomiting, and notes that she cannot keep anything down. She has abdominal pain that she attributes to vomiting. She has also had a dry cough recently. She denies the possibility of . The patient is on disability. Patient notes that this headache is unchanged in anyway from her typical headaches. It did come on gradually and progressively worsen. Patient denies headache, change in vision, fevers, chest pain, shortness of breath, nausea, vomiting, diarrhea, pain with urination, melena, weakness, or numbness. Source of History: patient Onset: this morning Position: head (right) Quality: other (migraine) Timing: other (persistent) Associated Symptoms: + abdominal pain, + cough, + nausea, + vomiting, No SOB , No chest pain, No diarrhea, No fevers, No melena, No numbness, No urinary symptoms, No weakness Review of Systems See HPI for pertinent positives & negatives. A total of 10 systems reviewed and were otherwise negative. Past Medical & Surgical Medical Problems: (1) Blood clot (2) Bronchitis (3) Cervical cancer (4) Cervicalgia (5) GERD (gastroesophageal reflux disease) (6) Migraine (7) Orthopedic surgery (8) Pneumonia (9) Spina bifida Surgical Problems: (1) History of brain surgery Family History Diabetes mellitus Hypertension Kidney disease/stones Social History Smoking Status: Current Every Day Smoker Alcohol Use: none Drug Use: none Marital Status: single Housing Status: lives with family Occupation Status: disabled Current/Historical Medications Scheduled Aspirin (Aspirin), 81 MG PO QPM Azelastine Hcl (Astelin Nasal [place]), 2 SPRAYS NA BID Cyanocobalamin (Vitamin B-12), 1,000 MCG PO QPM Fentanyl (Duragesic), 50 MCG TD CQ72HR Fluticasone Propionate (Flovent Hfa), 2 PUFFS INH BID Folic Acid (Folvite), 1 MG PO HS Gabapentin (Neurontin), 600 MG PO TID Magnesium Oxide (Mag-Ox), 400 MG PO BID Omeprazole (Omeprazole), 20 MG PO BID Oxaprozin (Daypro), 600 MG PO BID Pyridoxine (Vitamin B6), 100 MG PO BID Silver Sulfadiazine (Silvadene), 1 APPLN TOP DAILY Sumatriptan Succinate (Imitrex Nasal [place]), 1 SPRAY NA PRN UD Scheduled PRN Albuterol Hfa (Ventolin Hfa), 2 PUFFS INH QID PRN for SHORTNESS OF BREATH/WHEEZE Clonazepam (Klonopin), 0.5 MG PO BID PRN for Anxiety Cyclobenzaprine Hcl (Flexeril), 5 MG PO TID PRN for Muscle Spasms Hydroxyzine HCl (Hydroxyzine Pamoate), 25 MG PO QID PRN for Anxiety Melatonin (Melatonin), 5 MG PO HS PRN for Sleep Ondansetron Hcl (Zofran), 4 MG PO TID PRN for Nausea Oxycodone HCl (Oxycontin), 10 MG PO Q12 PRN for Pain Rizatriptan Benzoate (Rizatriptan Benzoate), 10 MG PO UD PRN for Migraine Allergies Coded Allergies: Pregabalin (Verified Adverse Reaction, Intermediate, Vision changes., 01/11) Physical Exam Vital Signs Date Time Temp Pulse Resp B/P Pulse Ox O2 Delivery O2 Flow Rate FiO2 01/29/17 17:58 64 16 146/87 99 01/29/17 15:33 36.6 86 20 132/94 97 Room Air Physical Exam GENERAL: Sitting up in bed, hoodie over head, disheveled, no acute distress, nontoxic. EYE EXAM: normal conjunctiva, PERRL and EOM's intact OROPHARYNX: no exudate, no erythema, lips, buccal mucosa, and tongue normal and mucous membranes are moist NECK: supple, no nuchal rigidity, no adenopathy, non-tender LUNGS: Clear to auscultation. Normal chest wall mechanics HEART: no murmurs, S1 normal and S2 normal ABDOMEN: abdomen soft, non-tender, normo-active bowel sounds, no masses, no rebound or guarding. BACK: Back is symmetrical on inspection and there is no deformity, no midline tenderness, no CVA tenderness. SKIN: no rashes and no bruising UPPER EXTREMITIES: upper extremities are grossly normal. LOWER EXTREMITIES: No pitting edema. NEURO EXAM: Normal sensorium, cranial nerves II-XII intact, normal speech, no weakness of arms, no weakness of legs. No drift. Finger to nose intact. Gross sensation intact. Medical Decision & Procedures Medications Administered Medications (Trade) Dose Ordered Sig/Payton Route Start Time Stop Time Status Last Admin Dose Admin Ketorolac Tromethamine (Toradol Inj) 60 mg NOW STAT IM 01/29/17 15:55 01/29/17 15:56 DC 01/29/17 16:04 60 MG Promethazine HCl (Phenergan Inj) 25 mg NOW STAT IM 01/29/17 15:55 01/29/17 15:56 DC 01/29/17 16:02 25 MG Hydromorphone HCl (Dilaudid Inj) 2 mg ONE PRN IM 01/29/17 16:00 01/29/17 18:09 DC 01/29/17 16:04 2 MG Ondansetron HCl (Zofran Odt) 4 mg STK-MED ONCE .ROUTE 01/29/17 16:58 01/29/17 16:59 DC 01/29/17 16:54 4 MG ED Course ED COURSE: Vital signs were reviewed and were normal. The patients medical record was reviewed The above diagnostic studies were performed and reviewed. ED treatments and interventions as stated above. 1547: The patient was evaluated in room A3. A complete history and physical examination was performed. 1555: Phenergan 25 mg IM, Toradol 60 mg IM. 1600: Dilaudid 2 mg IM. 1700: The patient did not want an IV. She is agreeable to more antiemetics. 1710: Upon reevaluation, the patient is doing well.I discussed my findings with the patient and she understands and agrees with the treatment plan. Based on the patients age, coexisting illnesses, exam and lab findings the decision to treat as an outpatient was made. The patient remained stable while under my care. The patient appeared well at the time of discharge. Medical Decision Differential Diagnosis includes but is not limited to headache, tension headache , cluster headache, migraine, subarachnoid hemorrhage, meningitis, mass, central venous thrombus, concussion, trauma and epidural/subdural hemorrhage. Patient is a 36 old female who presents the ER for typical headache located on the right side with the feeling of jaw being pulled off. She notes that she gets about 3 week. She notes that this feels like her typical migraines. It came on gradually and progressively worsening. No fevers. On exam there is no signs of meningitis or encephalitis. She does have a little bit of a cough and runny nose which I favor is likely a viral URI. Patient was given her typical customary shots of 2 mg of Dilaudid along with Phenergan and Toradol. She did feel better did have some nausea and was given additionally milligrams Zofran. This improved significantly. She declined an IV. She was feeling better requests to be discharged. Discussed with Pt concerning signs and symptoms to watch out for. Pt was instructed to follow up with their PCP and discussed with the patient their option to return to the ED at anytime for persistent or worsening symptoms. The appropriate anticipatory guidance and out-patient management, including indications for return to the emergency department, were explained at length to the patient and understood. Impression Primary Impression: Headache Additional Impression: Vomiting Scribe Attestation The scribe's documentation has been prepared under my direction and personally reviewed by me in its entirety. I confirm that the note above accurately reflects all work, treatment, procedures, and medical decision making performed by me. Departure Information Dispostion Home / Self-Care Referrals No Doctor, Assigned (PCP) Forms HOME CARE DOCUMENTATION FORM, IMPORTANT VISIT INFORMATION Patient Instructions Headache Pain, My [facility] Additional Instructions Please follow up with your primary care doctor with in the next 24 hours. Any worsening of your symptoms, please return to the ED immediately. This includes fevers greater than 100.4, persistent vomiting, weakness or numbness in your arms or legs, change in vision, or any other concerning signs or symptoms from your standpoint. Please do not drive, work, operate heavy machinery, take benzodiazepines or narcotics the next 12 hours. Problem Qualifiers Primary Impression: Headache Headache type: unspecified Headache chronicity pattern: acute headache Intractability: not intractable Qualified Codes: R51 - Headache Additional Impression: Vomiting Vomiting type: unspecified Vomiting Intractability: unspecified Nausea presence: unspecified Qualified Codes: R11.10 - Vomiting, unspecified
[2017-07-20] MEDS ORDERED: VNTHFA/IN INH (10:52)
[2017-07-20] MEDS ORDERED: FLVHFA110 INH (10:52)
[2017-07-20] MEDS ORDERED: OXAP600T PO (11:26)
== END 2017-01-29 17:59 | disposition home or self-care (01) ==
LOC: C.EDB 15:31 → C.EDA 17:59
DX: R51 Headache (principal); R11.10 Vomiting, unspecified; Z86.718 Personal history of other venous thrombosis and embolism; Z85.41 Personal history of malignant neoplasm of cervix uteri; K21.9 Gastro-esophageal reflux disease without esophagitis; Q05.9 Spina bifida, unspecified; Z83.3 Family history of diabetes mellitus; Z82.49 Family history of ischemic heart disease and other diseases of the circulatory system; Z84.1 Family history of disorders of kidney and ureter; F17.210 Nicotine dependence, cigarettes, uncomplicated; Z79.82 Long term (current) use of aspirin; Z79.899 Other long term (current) drug therapy

== ENCOUNTER 2017-02-03 19:22 | Emergency (ER) | payer OTHER ==
[~2017-02-03] VITALS: Ht 162.6 cm; Wt 91.3 kg
[2017-02-03 19:30] VITALS: TEMP 36.6; Ht 162.6 cm; Wt 91.3 kg
[2017-02-03] MEDS ORDERED: KETOROLAC TROMETHAMINE 60 MG/2 ML VIAL IM STA (19:39)
[2017-02-03] MEDS ORDERED: HYDROmorphone INJ 2 MG/ML SYR/VIAL IM STA (19:39)
[2017-02-03] MEDS ORDERED: PROMETHAZINE HCL INJ 25 MG/ML 1 ML VIAL IM STA (19:39)
[2017-02-03 20:01] VITALS: BP 109/64; PULSE 86; O2SAT 99
--- NOTE | 2017-02-03 20:22 | EMERGENCY ROOM VISIT NOTE ---
ED Visit Note First contact with patient: 19:34 CHIEF COMPLAINT: Migraine headache HISTORY OF PRESENT ILLNESS: This 36 white female patient presented to the emergency department with a gradual onset of a severe generalized headache that started last night. The patient states the migraine is similar to their typical migraines. There has been associated photophobia, phonophobia, nausea and vomiting. The patient denies fever or chills recently, and there is no weakness or numbness of the extremities. There is no difficulty with speech or vision. No trauma to the head and no neck pain. The pain is severe, constant, and it is slowly increasing in severity. The patient rates the pain as dull and 8/10. The patient has taken nothing [id number]. This is not the worst headache of the life and is similar to previous migraines. Previous imaging studies of the brain have been normal. REVIEW OF SYSTEMS: A review of systems was performed with positives and pertinent negatives listed in the history of present illness. All other systems were reviewed and are negative. ALLERGIES: See EMR MEDICATIONS: See EMR PMH: Chronic migraines SOCIAL HISTORY: Lives locally PHYSICAL EXAM: Vital Signs: Reviewed Nurse's notes, vital signs stable. GENERAL: White female, who appears in pain, but non toxic in appearance and in no acute distress. MENTAL STATUS: Alert, oriented, and coherent. HEENT: Normocephalic. PERRLA. EOMI. Nares patent without nuchal rigidity. Tympanic membranes pearly valentin without erythema or effusion bilaterally. Mucous membranes moist. NECK: Supple, no nuchal rigidity, nontender, no lymphadenopathy. HEART: Regular rhythm and normal rate without murmurs, ectopy, gallops, or rubs. LUNGS: Clear to auscultation bilaterally without wheezes, rales or rhonchi. No dullness to percussion. No accessory muscle use. No retractions. SKIN: Normal. NEUROLOGICAL: Pupils are round, equal and react to light. The optic fundi are normal and the discs are flat. The patient moves all extremities well and the gait is normal. EMERGENCY DEPARTMENT COURSE: I examined the patient. The patient is on a 2 narcotic injection per month treatment plan for their migraines. Today is her second visit of the month for pain control for her migraines. She was given 2 mg IM Dilaudid, 60 mg IM Toradol, 25 mg IM Phenergan for her symptoms. The differential diagnosis includes acute intracranial bleed, meningitis, encephalitis, mass or mass effect, sinusitis, infection, tumor, headache, temporal arteritis and carbon monoxide exposure, and migraine. The patient was discharged home in stable condition with a female priming powder premix blender driving. Problem List Medical Problems: (1) Blood clot Status: Chronic (2) Bronchitis Status: Chronic (3) Migraine Status: Chronic (4) Orthopedic surgery Status: Resolved (5) Pneumonia Status: Chronic Surgical Problems: (1) History of brain surgery Status: Resolved Current/Historical Medications Scheduled Aspirin (Aspirin), 81 MG PO QPM Azelastine Hcl (Astelin Nasal [place]), 2 SPRAYS NA BID Cyanocobalamin (Vitamin B-12), 1,000 MCG PO QPM Fentanyl (Duragesic), 50 MCG TD CQ72HR Fluticasone Propionate (Flovent Hfa), 2 PUFFS INH BID Folic Acid (Folvite), 1 MG PO HS Gabapentin (Neurontin), 600 MG PO TID Magnesium Oxide (Mag-Ox), 400 MG PO BID Omeprazole (Omeprazole), 20 MG PO BID Oxaprozin (Daypro), 600 MG PO BID Pyridoxine (Vitamin B6), 100 MG PO BID Silver Sulfadiazine (Silvadene), 1 APPLN TOP DAILY Sumatriptan Succinate (Imitrex Nasal [place]), 1 SPRAY NA PRN UD Scheduled PRN Albuterol Hfa (Ventolin Hfa), 2 PUFFS INH QID PRN for SHORTNESS OF BREATH/WHEEZE Clonazepam (Klonopin), 0.5 MG PO BID PRN for Anxiety Cyclobenzaprine Hcl (Flexeril), 5 MG PO TID PRN for Muscle Spasms Hydroxyzine HCl (Hydroxyzine Pamoate), 25 MG PO QID PRN for Anxiety Melatonin (Melatonin), 5 MG PO HS PRN for Sleep Ondansetron Hcl (Zofran), 4 MG PO TID PRN for Nausea Oxycodone HCl (Oxycontin), 10 MG PO Q12 PRN for Pain Rizatriptan Benzoate (Rizatriptan Benzoate), 10 MG PO UD PRN for Migraine Allergies Coded Allergies: Pregabalin (Verified Adverse Reaction, Intermediate, Vision changes., 01/11) Vital Signs Date Time Temp Pulse Resp B/P Pulse Ox O2 Delivery O2 Flow Rate FiO2 4/20/17 20:01 86 18 109/64 99 02/03/17 19:30 36.6 90 16 128/90 98 Room Air Medications Administered Medications (Trade) Dose Ordered Sig/Payton Route Start Time Stop Time Status Last Admin Dose Admin Hydromorphone HCl (Dilaudid Inj) 2 mg NOW STAT IM 02/03/17 19:39 02/03/17 19:40 DC 02/03/17 19:56 2 MG Promethazine HCl (Phenergan Inj) 25 mg NOW STAT IM 02/03/17 19:39 02/03/17 19:40 DC 02/03/17 19:56 25 MG Ketorolac Tromethamine (Toradol Inj) 60 mg NOW STAT IM 02/03/17 19:39 02/03/17 19:40 DC 02/03/17 19:55 60 MG Departure Information Impression Primary Impression: Headache Dispostion Home / Self-Care Condition GOOD Referrals Jayden Singleton D.OCaleb (PCP) Forms HOME CARE DOCUMENTATION FORM, IMPORTANT VISIT INFORMATION Patient Instructions My [facility] Additional Instructions You were seen and evaluated today on an emergency basis only. This is not a substitute for, or an effort to provide, complete comprehensive medical care. It is not possible to recognize and treat all injuries or illnesses in a single emergency department visit. For this reason it is recommended that you followup with your primary care physician or neurologist this week for ongoing care and evaluation. DO NOT drive, drink alcohol, operate machinery, or perform dangerous activities today. You were given medications in the ER that can affect your ability to safely function or operate a vehicle. Rest today in a quiet, peaceful, dark environment and get a full 8-10 hrs of sleep tonight. Avoid loud noises, smoke/smoking, alcohol, bright lights, stress, or physical exertion today to minimize the chance the headache may return. Continue current medications. Ibuprofen(Motrin, Advil) may be used for fever or pain. Use 600mg every six hours as needed. Take with food. Avoid using more than 2400mg in a 24 hour period. Do not use 2400mg per day for more than three consecutive days without physician direction. Prolonged inappropriate use can lead to stomach upset or ulcers. (AND/OR) Acetaminophen(Tylenol) may be used for fever or pain. Use 1000mg every six hours as needed. Avoid using more than 4000mg in a 24 hour period. Return to the ER for passing out, worsening headache, vision problems, neck stiffness/pain, fevers, vomiting, worsening of your condition, or as needed.
[2017-07-20] MEDS ORDERED: VNTHFA/IN INH (10:52)
[2017-07-20] MEDS ORDERED: FLVHFA110 INH (10:52)
[2017-07-20] MEDS ORDERED: OXAP600T PO (11:26)
== END 2017-02-03 20:04 | disposition home or self-care (01) ==
LOC: C.EDB 19:22 → C.EDD 20:04
DX: R51 Headache (principal); Z86.718 Personal history of other venous thrombosis and embolism; Z87.01 Personal history of pneumonia (recurrent); Z79.82 Long term (current) use of aspirin; Z79.899 Other long term (current) drug therapy

== ENCOUNTER 2017-02-07 09:55 | Emergency (ER) | payer OTHER ==
[~2017-02-07] VITALS: Ht 162.6 cm; Wt 94.0 kg
[2017-02-07 10:09] VITALS: TEMP 36.6; Ht 162.6 cm; Wt 94.0 kg
[2017-02-07] MEDS ORDERED: SODIUM CHLORIDE 0.9% 1000ML 1,000 ML IV STA ×2 (10:28→10:37)
[2017-02-07] MEDS ORDERED: MAGNESIUM SULFATE 1GM / D5W 1 GM BAG IV STA (10:37)
[2017-02-07] MEDS ORDERED: KETOROLAC TROMETHAMINE 30 MG/ML VIAL IV STA (10:37)
[2017-02-07] MEDS ORDERED: DiphenhydrAMINE HCL 50 MG/ML VIAL IV STA (10:37)
[2017-02-07] MEDS ORDERED: PROCHLORPERAZINE 5 MG/ML 2 ML VIAL IV STA (10:37)
[2017-02-07 10:58] LABS: BASO % 0.5 %; BASO ABS # 0.05 K/uL (0-0.2); COMPLETE YES; EOS % 5.1 %; HEMATOCRIT 40.9 % (37-47); IG% 0.1 %; LYMPH % 24.8 %; LYMPH ABS # 2.69 K/uL (1.2-3.4); MEAN CELL VOLUME 89.3 fL (80-100); MEAN CORPUSCULAR HEMOGLOBIN 29.3 pg (25-34); MEAN CORPUSCULAR HGB CONC 32.8 g/dl (32-36); MEAN PLATELET VOLUME 9.7 fL (7.4-10.4); MONO % 8.7 %; NEUT % 60.8 %; PLATELET COUNT 348 K/uL (130-400); RED BLOOD COUNT 4.58 M/uL (4.2-5.4); WHITE BLOOD COUNT 10.85 K/uL (4.8-10.8)
--- NOTE | 2017-02-07 11:14 | EMERGENCY ROOM VISIT NOTE ---
History Report prepared by Jerry: Valeria Pham Under the Supervision of: Dr. Isael Landers M.D. First contact with patient: 10:28 Chief Complaint: HYPOTENSION Stated Complaint: HYPOTENSION History of Present Illness The patient is a 36 year old female who presents to the Emergency Room via EMS with complaints of a severe right sided headache starting about 2 days ago. The patient had an episode of facial numbness last night. While having a bowel movement last night, she lost consciousness and woke up on the floor. She also complains of shortness of breath occurring for the past day or two. She currently complains of a headache. She has worsening pain with exposure to light. As per EMS notes, the patient was negative on the stroke scale. She denies fevers, chills, chest pain, shortness of breath, focal weakness, or any other complaints. Source of History: patient, EMS Onset: about 2 days ago Position: head (right sided) Symptom Intensity: severe Modifying Factors (Worsening): other (exposure to light) Associated Symptoms: + LOC, No SOB, No chest pain, No chills, No fevers, No weakness (focal) Review of Systems See HPI for pertinent positives & negatives. A total of 10 systems reviewed and were otherwise negative. Past Medical & Surgical Medical Problems: (1) Blood clot (2) Bronchitis (3) Cervical cancer (4) Cervicalgia (5) GERD (gastroesophageal reflux disease) (6) Migraine (7) Orthopedic surgery (8) Pneumonia (9) Spina bifida Surgical Problems: (1) History of brain surgery Family History Diabetes mellitus Hypertension Kidney disease/stones Social History Smoking Status: Current Every Day Smoker Alcohol Use: none Drug Use: none Marital Status: single Housing Status: lives with family Occupation Status: disabled Current/Historical Medications Scheduled Aspirin (Aspirin), 81 MG PO QPM Azelastine Hcl (Astelin Nasal [place]), 2 SPRAYS NA BID Cyanocobalamin (Vitamin B-12), 1,000 MCG PO QPM Fentanyl (Duragesic), 50 MCG TD CQ72HR Fluticasone Propionate (Flovent Hfa), 2 PUFFS INH BID Folic Acid (Folvite), 1 MG PO HS Gabapentin (Neurontin), 600 MG PO TID Magnesium Oxide (Mag-Ox), 400 MG PO BID Omeprazole (Omeprazole), 20 MG PO BID Oxaprozin (Daypro), 600 MG PO BID Pyridoxine (Vitamin B6), 100 MG PO BID Silver Sulfadiazine (Silvadene), 1 APPLN TOP DAILY Sulfa/Trimethoprim (Bactrim Ds 800MG/160MG), 1 TAB PO BID Sumatriptan Succinate (Imitrex Nasal [place]), 1 SPRAY NA PRN UD Scheduled PRN Albuterol Hfa (Ventolin Hfa), 2 PUFFS INH QID PRN for SHORTNESS OF BREATH/WHEEZE Clonazepam (Klonopin), 0.5 MG PO BID PRN for Anxiety Cyclobenzaprine Hcl (Flexeril), 5 MG PO TID PRN for Muscle Spasms Hydroxyzine HCl (Hydroxyzine Pamoate), 25 MG PO QID PRN for Anxiety Melatonin (Melatonin), 5 MG PO HS PRN for Sleep Ondansetron Hcl (Zofran), 4 MG PO TID PRN for Nausea Oxycodone HCl (Oxycontin), 10 MG PO Q12 PRN for Pain Rizatriptan Benzoate (Rizatriptan Benzoate), 10 MG PO UD PRN for Migraine Allergies Coded Allergies: Pregabalin (Verified Adverse Reaction, Intermediate, Vision changes., 01/11) Physical Exam Vital Signs Date Time Temp Pulse Resp B/P Pulse Ox O2 Delivery O2 Flow Rate FiO2 02/07/17 14:58 68 108/61 99 02/07/17 13:55 64 02/07/17 13:45 95/63 02/07/17 13:30 105/64 02/07/17 13:25 67 02/07/17 13:15 96/64 02/07/17 13:00 102/67 02/07/17 12:55 58 16 02/07/17 12:45 111/68 02/07/17 12:30 107/49 02/07/17 12:25 65 97 02/07/17 12:16 93/67 02/07/17 11:55 64 100 02/07/17 11:46 79 02/07/17 11:45 110/81 02/07/17 11:31 129/91 02/07/17 11:19 81 114/77 86 118/81 91 132/95 02/07/17 11:19 Room Air 02/07/17 10:52 82 18 115/78 02/07/17 10:23 Room Air 02/07/17 10:09 36.6 95 18 119/77 97 Room Air Physical Exam GENERAL: Patient is a healthy-appearing well-nourished HEAD: Normocephalic atraumatic EYES: Ocular movements intact pupils equal and react to light OROPHARYNX mucous membranes are moist no exudates present no erythema or edema present NECK: Supple no nuchal rigidity. No evidence of meningitis or encephalitis on exam. CHEST: Good equal expansion LUNGS: Clear and equal to auscultation CARDIAC: Normal S1 and S2 ABDOMEN: Soft nontender no guarding BACK: No CVA tenderness EXTREMITIES: No pain upon palpation normal muscle strength in all groups no clubbing cyanosis or edema NEURO: Patient is following commands is answering questions appropriately. Alert and oriented x3 Cranial Nerves 2-12 grossly intact Medical Decision & Procedures ER Provider Diagnostic Interpretation: X-ray results as stated below per interpretation by me and the radiologist: CHEST ONE VIEW PORTABLE CLINICAL HISTORY: Hypotension COMPARISON STUDY: 04/12/2016 FINDINGS: The cardiac and mediastinal contours are normal. There is no evidence of focal pulmonary consolidation. There is no evidence of failure. No pleural effusions are visualized.[ Slight differential attenuation of the hemithoraces is felt to be related to technical factors IMPRESSION: No active disease in the chest. Electronically signed by: Anand Kwan M.D. 02/07/2017 12:08 PM Dictated Date/Time: 02/07/2017 12:[address] results as stated below per my review and radiologist interpretation: CT HEAD WITHOUT CONTRAST (CT) CLINICAL HISTORY: Persistent headache COMPARISON STUDY: 08/20/2016 TECHNIQUE: Axial CT of the brain is performed from the vertex to the skull base. IV contrast was not administered for this examination. CT DOSE: 537.48 mGy.cm FINDINGS: No intra or extra-axial mass lesions are visualized. There is no CT evidence of acute cortical infarction. There is no evidence of midline shift. There is no acute hemorrhage. No calvarial fractures are visualized. There are postsurgical changes of a suboccipital craniotomy. There is cerebellar tonsillar ectopia. There is no evidence of pathologic ventricular dilatation. There is no evidence of acute sinusitis IMPRESSION: Postsurgical changes of a suboccipital craniotomy. No acute intracranial findings. Electronically signed by: Anand Kwan M.D. 02/07/2017 11:23 AM Dictated Date/Time: 02/07/2017 11:21 AM Laboratory Results 02/07/17 10:40 Red Blood Count 4.58, Mean Corpuscular Volume 89.3, Mean Corpuscular Hemoglobin 29.3, Mean Corpuscular Hemoglobin Concent 32.8, Mean Platelet Volume 9.7, Neutrophils (%) (Auto) 60.8, Lymphocytes (%) (Auto) 24.8, Monocytes (%) (Auto) 8.7, Eosinophils (%) (Auto) 5.1, Basophils (%) (Auto) 0.5, Neutrophils # (Auto) 6.61, Lymphocytes # (Auto) 2.69, Monocytes # (Auto) 0.94, Eosinophils # (Auto) 0.55, Basophils # (Auto) 0.05 02/07/17 10:40 Test 02/07/17 10:40 02/07/17 10:58 02/07/17 11:22 White Blood Count 10.85 K/uL (4.8-10.8) Red Blood Count 4.58 M/uL (4.2-5.4) Hemoglobin 13.4 g/dL (12.0-16.0) Hematocrit 40.9 % (37-47) Mean Corpuscular Volume 89.3 fL (80-100) Mean Corpuscular Hemoglobin 29.3 pg (25-34) Mean Corpuscular Hemoglobin Concent 32.8 g/dl (32-36) Platelet Count 348 K/uL (130-400) Mean Platelet Volume 9.7 fL (7.4-10.4) Neutrophils (%) (Auto) 60.8 % Lymphocytes (%) (Auto) 24.8 % Monocytes (%) (Auto) 8.7 % Eosinophils (%) (Auto) 5.1 % Basophils (%) (Auto) 0.5 % Neutrophils # (Auto) 6.61 K/uL (1.4-6.5) Lymphocytes # (Auto) 2.69 K/uL (1.2-3.4) Monocytes # (Auto) 0.94 K/uL (0.11-0.59) Eosinophils # (Auto) 0.55 K/uL (0-0.5) Basophils # (Auto) 0.05 K/uL (0-0.2) RDW Standard Deviation 46.1 fL (36.4-46.3) RDW Coefficient of Variation 14.0 % (11.5-14.5) Immature Granulocyte % (Auto) 0.1 % Immature Granulocyte # (Auto) 0.01 K/uL (0.00-0.02) D-Dimer 460 ug/L FEU (0-500) Anion Gap 4.0 mmol/L (3-11) Est Creatinine Clear Calc Drug Dose 86.5 ml/min Estimated GFR () 83.9 Estimated GFR (Non- 72.4 BUN/Creatinine Ratio 13.3 (10-20) Calcium Level 8.8 mg/dl (8.5-10.1) Total Bilirubin 0.4 mg/dl (0.2-1) Direct Bilirubin 0.1 mg/dl (0-0.2) Aspartate Amino Transf (AST/SGOT) 24 U/L (15-37) Alanine Aminotransferase (ALT/SGPT) 39 U/L (12-78) Alkaline Phosphatase 136 U/L (45-117) Total Creatine Kinase 68 U/L (26-192) Creatine Kinase MB < 0.5 ng/ml (0.5-3.6) Creatine Kinase MB Ratio (0-3.0) Troponin I < 0.015 ng/ml (0-0.045) Total Protein 6.9 gm/dl (6.4-8.2) Albumin 3.8 gm/dl (3.4-5.0) Thyroid Stimulating Hormone (TSH) 2.940 uIu/ml (0.300-4.500) Human Chorionic Gonadotropin, Qual NEG (NEG) Bedside Glucose 96 mg/dl (70-90) Urine Color YELLOW Urine Appearance CLEAR (CLEAR) Urine pH 5.5 (4.5-7.5) Urine Specific [place] 1.006 (1.000-1.030) Urine Protein NEG (NEG) Urine Glucose (UA) NEG (NEG) Urine Ketones NEG (NEG) Urine Occult Blood NEG (NEG) Urine Nitrite NEG (NEG) Urine Bilirubin NEG (NEG) Urine Urobilinogen NEG (NEG) Urine Leukocyte Esterase SMALL (NEG) Urine WBC (Auto) 0 /hpf (0-5) Urine RBC (Auto) 0-4 /hpf (0-4) Urine Hyaline Casts (Auto) 0 /lpf (0-5) Urine Epithelial Cells (Auto) >30 /lpf (0-5) Urine Bacteria (Auto) NEG (NEG) Urine Renal Epithelial Cells 5-10 /lpf (0-5) Labs reviewed by ED physician. Medications Administered Medications (Trade) Dose Ordered Sig/Payton Route Start Time Stop Time Status Last Admin Dose Admin Sodium Chloride 1,000 ml @ 999 mls/hr Q1H1M STAT IV 02/07/17 10:28 02/07/17 11:28 DC 02/07/17 10:28 999 MLS/HR Sodium Chloride (Nss 1000ml) 1,000 ml @ 999 mls/hr Q1H1M STAT IV 02/07/17 10:37 02/07/17 11:37 DC 02/07/17 11:33 999 MLS/HR Ketorolac Tromethamine (Toradol Inj) 30 mg NOW STAT IV 02/07/17 10:37 02/07/17 10:39 DC 02/07/17 11:33 30 MG Prochlorperazine Edisylate (Compazine Inj) 5 mg NOW STAT IV 02/07/17 10:37 02/07/17 10:39 DC 02/07/17 11:36 5 MG Diphenhydramine HCl (Benadryl Inj) 50 mg NOW STAT IV 02/07/17 10:37 02/07/17 10:39 DC 02/07/17 11:34 50 MG Magnesium Sulfate (Magnesium Sulfate) 1 gm NOW STAT IV 02/07/17 10:37 02/07/17 10:39 DC 02/07/17 11:38 1 GM Trimethoprim/ Sulfamethoxazole (Septra Ds 800/ 160MG Tab) 1 tab NOW STAT PO 02/07/17 12:20 02/07/17 12:21 DC 02/07/17 12:49 1 TAB Dexamethasone Sodium Phosphate (Decadron Inj) 10 mg NOW STAT IV 02/07/17 13:56 02/07/17 13:57 DC 02/07/17 14:03 10 MG ECG Indication: syncope, other (Headache) Rate (beats per minute): 79 Rhythm: normal sinus Findings: no acute ischemic change, no ectopy ED Course 1028: Past medical records reviewed. The patient was evaluated in room C03. A complete history and physical examination was performed. Sodium Chloride 1000 ml @ 999 mls/hr IV 1037: Magnesium Sulfate 1 gm IV, Benadryl Inj 50 mg IV, Compazine Inj 5 mg IV, Toradol Inj 30 mg IV, Sodium Chloride 1000 ml @ 999 mls/hr IV 1220: Trimethoprim/Sulfamethoxazole 1 tab PO 1356: Decadron Inj 10 mg IV 1442: Upon reexamination the patient is resting comfortably. She is alert and oriented x3. I discussed results and treatment plan with the patient. She verbalizes agreement and understanding. The patient is ready for discharge. Medical Decision Differential diagnosis: Etiologies such as migraine headache, meningitis, sinusitis, CO exposure, ICH, SAH, infection, tumor, headache, sinus thrombosis, arterial dissection, as well as others were entertained. This is a 36-year-old female who presents emergency department complaining of hypotension. Upon arrival to the emergency department the patient does not appear to be in any distress and has no evidence of meningitis encephalitis on examination. The patient is complaining of a headache. She was given normal saline bolus, Toradol, Compazine, Benadryl. I will note that the patient is on the no narcotic treatment plan and has are given to the emergency department twice within the past month and has received her shots for the month. Repeat examination revealed the patient to be sleeping. She does have a slight elevation in her white blood count and appears to have a large amount of blood cells in her urine. For this reason I did start the patient on Bactrim pending urine culture results. I do believe that the patient as well as to be discharged home for follow-up with her primary care physician. Prior to discharge the patient was ambulated around the emergency department. In addition she was also reexamined by myself and she was able to answer all questions. Impression Primary Impression: Headache Scribe Attestation The scribe's documentation has been prepared under my direction and personally reviewed by me in its entirety. I confirm that the note above accurately reflects all work, treatment, procedures, and medical decision making performed by me. Departure Information Dispostion Home / Self-Care Prescriptions Sulfa/Trimethoprim (Bactrim Ds 800MG/160MG) Tab 1 TAB PO BID for 7 Days, #14 TAB Prov: Isael Landers MD 02/07/17 Referrals Jayden Singleton D.OCaleb (PCP) Forms HOME CARE DOCUMENTATION FORM, IMPORTANT VISIT INFORMATION, WORK / SCHOOL INSTRUCTIONS Patient Instructions ED Hypotension Orthostatic, My [facility] Additional Instructions Culture results are usually available in approx 48 hours You have been examined and treated today on an emergency basis only. This is not a substitute for, or an effort to provide, complete comprehensive medical care. It is impossible to recognize and treat all injuries or illnesses in a single emergency department visit. It is therefore important that you follow up closely with Dr Singleton. Call as soon as possible for an appointment. Thank you for your time and consideration. I look forward to speaking with you again soon. Please don't hesitate to call us if you have any questions. Problem Qualifiers Primary Impression: Headache Headache type: unspecified Headache chronicity pattern: unspecified pattern Intractability: not intractable Qualified Codes: R51 - Headache
[2017-02-07 11:20] LABS: ALT/SGPT 39 U/L (12-78); AST/SGOT 24 U/L (15-37); BLOOD UREA NITROGEN 13 mg/dl (7-18); BUN/CREATININE RATIO 13.3 (10-20); CALCIUM 8.8 mg/dl (8.5-10.1); CARBON DIOXIDE 29 mmol/L (21-32); CHLORIDE 105 mmol/L (98-107); GLUCOSE 69 mg/dl (70-99); POTASSIUM 4.4 mmol/L (3.5-5.1); SODIUM 138 mmol/L (136-145)
[2017-02-07 11:21] LABS: PREG INTERNAL NEGATIVE QC NEG CLEAR BACKGROUND; PREG INTERNAL POSITIVE QC POS CONTROL LINE
--- NOTE | 2017-02-07 11:25 | DIAGNOSTIC IMAGING REPORT ---
CT HEAD WITHOUT CONTRAST (CT) CLINICAL HISTORY: Persistent headache COMPARISON STUDY: 08/20/2016 TECHNIQUE: Axial CT of the brain is performed from the vertex to the skull base. IV contrast was not administered for this examination. CT DOSE: 537.48 mGy.cm FINDINGS: No intra or extra-axial mass lesions are visualized. There is no CT evidence of acute cortical infarction. There is no evidence of midline shift. There is no acute hemorrhage. No calvarial fractures are visualized. There are postsurgical changes of a suboccipital craniotomy. There is cerebellar tonsillar ectopia. There is no evidence of pathologic ventricular dilatation. There is no evidence of acute sinusitis IMPRESSION: Postsurgical changes of a suboccipital craniotomy. No acute intracranial findings. Electronically signed by: Anand Kwan M.D. 02/07/2017 11:23 AM Dictated Date/Time: 02/07/2017 11:21 AM
[2017-02-07 11:31] LABS: ALKALINE PHOSPHATASE 136 U/L (45-117)
[2017-02-07 11:45] LABS: URINE APPEARANCE CLEAR (CLEAR); URINE BILIRUBIN NEG (NEG); URINE COLOR YELLOW; URINE NITRITE NEG (NEG); URINE PH 5.5 (4.5-7.5); URINE SPECIFIC GRAVITY 1.006 (1.000-1.030); UROBILINOGEN NEG (NEG)
[2017-02-07 11:54] LABS: MANUAL MICROSCOPIC REQUIRED? NO; REVIEW REQ? YES
--- NOTE | 2017-02-07 12:11 | DIAGNOSTIC IMAGING REPORT ---
CHEST ONE VIEW PORTABLE CLINICAL HISTORY: Hypotension COMPARISON STUDY: 04/12/2016 FINDINGS: The cardiac and mediastinal contours are normal. There is no evidence of focal pulmonary consolidation. There is no evidence of failure. No pleural effusions are visualized.[ Slight differential attenuation of the hemithoraces is felt to be related to technical factors IMPRESSION: No active disease in the chest. Electronically signed by: Anand Kwan M.D. 02/07/2017 12:08 PM Dictated Date/Time: 02/07/2017 12:08 PM
[2017-02-07 12:13] LABS: URINE EPITHELIAL CELL AUTO >30 /lpf (0-5)
[2017-02-07] MEDS ORDERED: SULFAMETHOXAZOLE/TRIMETHOPRIM DS 800/160MG TAB PO STA (12:20)
[2017-02-07] MEDS ORDERED: DEXAMETHASONE SOD INJ 10 MG/ML VIAL IV STA (13:56)
[2017-02-07] MEDS ORDERED: SULF800T23 PO (13:58)
[2017-02-07 14:58] VITALS: BP 108/61; PULSE 68; O2SAT 99
[2017-07-20] MEDS ORDERED: FLVHFA110 INH (10:52)
[2017-07-20] MEDS ORDERED: VNTHFA/IN INH (10:52)
[2017-07-20] MEDS ORDERED: OXAP600T PO (11:26)
== END 2017-02-07 14:59 | disposition home or self-care (01) ==
LOC: EDBD 09:55 → C.EDC 09:56
DX: R51 Headache (principal); I95.9 Hypotension, unspecified; Q05.9 Spina bifida, unspecified; Z85.41 Personal history of malignant neoplasm of cervix uteri; G43.709 Chronic migraine without aura, not intractable, without status migrainosus; F17.210 Nicotine dependence, cigarettes, uncomplicated; F11.20 Opioid dependence, uncomplicated; F41.9 Anxiety disorder, unspecified; F32.9 Major depressive disorder, single episode, unspecified; M19.90 Unspecified osteoarthritis, unspecified site; J45.909 Unspecified asthma, uncomplicated; Z86.73 Personal history of transient ischemic attack (TIA), and cerebral infarction without residual deficits; Z86.718 Personal history of other venous thrombosis and embolism; Q05.4 Unspecified spina bifida with hydrocephalus; Z90.49 Acquired absence of other specified parts of digestive tract; Z98.51 Tubal ligation status; Z88.8 Allergy status to other drugs, medicaments and biological substances; Z79.82 Long term (current) use of aspirin

== ENCOUNTER 2017-03-07 17:00 | Emergency (ER) | payer OTHER ==
[~2017-03-07] VITALS: Ht 162.6 cm; Wt 89.2 kg
[2017-03-07 17:08] VITALS: TEMP 36.7; Ht 162.6 cm; Wt 89.2 kg
[2017-03-07] MEDS ORDERED: HYDROmorphone HCL 4 MG/ML SYR IM STA (17:14)
[2017-03-07] MEDS ORDERED: ONDANSETRON 4MG OD TAB PO STA (17:14)
[2017-03-07] MEDS ORDERED: PROMETHAZINE HCL INJ 25 MG/ML 1 ML VIAL IM STA (17:14)
[2017-03-07] MEDS ORDERED: KETOROLAC TROMETHAMINE 60 MG/2 ML VIAL IM STA (17:14)
--- NOTE | 2017-03-07 17:16 | EMERGENCY ROOM VISIT NOTE ---
History Report prepared by Jerry: Ebonie Green Under the Supervision of: Dr. Dustin Costa M.D. First contact with patient: 17:04 Chief Complaint: HEADACHE Stated Complaint: MIGRAINE, NAUSEA History of Present Illness The patient is a 36 year old female who presents to the Emergency Room with complaints of a worsening headache that started 2.5 hours ago. The patient came to the ED via ambulance. The headache starts in the left side of her neck and radiates up around into the right side of her face. She states that this headache feels like her chronic migraines. The patient has Imitrex nasal spray and Maxalt tablets at home for her migraines, but neither offered her any relief. She is also experiencing photophobia, nausea, and vomiting. She denies any recent head trauma as well as any other complaints. Source of History: patient Onset: 2.5 hours ago Position: head, neck Quality: other (headache) Timing: other (persistent) Modifying Factors (Relieving): other (None) Associated Symptoms: + nausea, + vomiting Note: photophobia Review of Systems See HPI for pertinent positives & negatives. A total of 10 systems reviewed and were otherwise negative. Past Medical & Surgical Medical Problems: (1) Blood clot (2) Bronchitis (3) Cervical cancer (4) Cervicalgia (5) GERD (gastroesophageal reflux disease) (6) Migraine (7) Orthopedic surgery (8) Pneumonia (9) Spina bifida Surgical Problems: (1) History of brain surgery Family History Diabetes mellitus Hypertension Kidney disease/stones Social History Smoking Status: Current Every Day Smoker Alcohol Use: none Drug Use: none Marital Status: single Housing Status: lives with family Occupation Status: disabled Current/Historical Medications Scheduled Aspirin (Aspirin), 81 MG PO QPM Azelastine Hcl (Astelin Nasal [place]), 2 SPRAYS NA BID Cyanocobalamin (Vitamin B-12), 1,000 MCG PO QPM Fentanyl (Duragesic), 50 MCG TD CQ72HR Fluticasone Propionate (Flovent Hfa), 2 PUFFS INH BID Folic Acid (Folvite), 1 MG PO HS Gabapentin (Neurontin), 600 MG PO TID Magnesium Oxide (Mag-Ox), 400 MG PO BID Omeprazole (Omeprazole), 20 MG PO BID Oxaprozin (Daypro), 600 MG PO BID Pyridoxine (Vitamin B6), 100 MG PO BID Silver Sulfadiazine (Silvadene), 1 APPLN TOP DAILY Sumatriptan Succinate (Imitrex Nasal [place]), 1 SPRAY NA PRN UD Scheduled PRN Albuterol Hfa (Ventolin Hfa), 2 PUFFS INH QID PRN for SHORTNESS OF BREATH/WHEEZE Clonazepam (Klonopin), 0.5 MG PO BID PRN for Anxiety Cyclobenzaprine Hcl (Flexeril), 5 MG PO TID PRN for Muscle Spasms Hydroxyzine HCl (Hydroxyzine Pamoate), 25 MG PO QID PRN for Anxiety Melatonin (Melatonin), 5 MG PO HS PRN for Sleep Ondansetron Hcl (Zofran), 4 MG PO TID PRN for Nausea Oxycodone HCl (Oxycontin), 10 MG PO Q12 PRN for Pain Rizatriptan Benzoate (Rizatriptan Benzoate), 10 MG PO UD PRN for Migraine Allergies Coded Allergies: Pregabalin (Verified Adverse Reaction, Intermediate, Vision changes., 01/11) Physical Exam Vital Signs Date Time Temp Pulse Resp B/P Pulse Ox O2 Delivery O2 Flow Rate FiO2 03/07/17 18:52 67 18 153/101 100 03/07/17 17:08 36.7 72 16 152/100 97 Room Air Physical Exam GENERAL: Patient is in no acute distress. HEENT: No acute trauma, normocephalic atraumatic, mucous membranes moist, no nasal congestion, no scleral icterus. Pupils equal and reactive to light. NECK: No stridor, no adenopathy, no meningismus, trachea is midline. LUNGS: Clear to auscultation bilaterally, no wheeze, no rhonchi, breath sounds equal. HEART: Without murmurs gallops or rubs, regular rate and rhythm. ABDOMEN: Soft, nontender, bowel sounds positive, no hernias, no peritonitis. EXTREMITIES: No cyanosis or edema, full range of motion of all the joints without pain or difficulty, no signs for acute trauma. NEUROLOGIC: Oriented x 3, no acute motor or sensory deficits, no focal weakness. No cerebellar deficits. SKIN: No rash, no jaundice, no diaphoresis Medical Decision & Procedures Medications Administered Medications (Trade) Dose Ordered Sig/Payton Route Start Time Stop Time Status Last Admin Dose Admin Ondansetron HCl (Zofran Odt) 4 mg NOW STAT PO 03/07/17 17:14 03/07/17 17:19 DC 03/07/17 17:42 4 MG Promethazine HCl (Phenergan Inj) 25 mg NOW STAT IM 03/07/17 17:14 03/07/17 17:19 DC 03/07/17 17:42 25 MG Ketorolac Tromethamine (Toradol Inj) 60 mg NOW STAT IM 03/07/17 17:14 03/07/17 17:19 DC 03/07/17 17:43 60 MG Hydromorphone HCl (Dilaudid Inj) 2 mg STK-MED ONCE .ROUTE 03/07/17 17:39 03/07/17 17:40 DC 03/07/17 17:43 2 MG ED Course 1709: The patient was evaluated in room A12. A complete history and physical exam was performed. 1714: Ordered Toradol Inj 60 mg IM, Phenergan Inj 25 mg IM, Zofran Odt 4 mg PO 1739: Ordered Dilaudid Inj 2 mg IM 1800: Reevaluated the patient. Discussed results and discharge instructions: she verbalized understanding and agreement. The patient is ready for discharge. 1836: The nurse informed me that the patient requested something more for pain and stated that she did not receive all of the IM injections because it "ran down her butt cheek" after it was administered. I asked the nurse to tell that patient that she is not receiving any more narcotics for her headache and inform her that I would be willing to treat her with other non-narcotic medications if she wanted. 1838: The nurse updated the patient and the patient is in agreement with going home. She does not want any more medication for her headache. Medical Decision Differential diagnoses considered include migraine headache, tension headache, meningitis, intracranial bleeding, dehydration. The patient presents with a headache that she describes as a migraine, she has had multiple previous ER visits. There has been no head trauma, she has not had fever, no arm or leg weakness. There is no meningismus on exam, her neurologic exam was nonfocal. The patient received her typical IM Dilaudid, IM Toradol and IM Phenergan. She also was given some oral Zofran. She was reassessed about an hour later and was still having discomfort and asking for more pain medication. I talked to her about having an IV placed for IV hydration and other nonnarcotic pain medications. She did not want this, she decided that she would go home and see if the headache improved as the medication that was injected continued to work. The nursing staff reported to me that the patient felt that she had not received all of her injections as some of the injected material had leaked back out of the injection site. Nursing staff felt this was very unlikely and this was not a reason to readminister more pain medication IM. The patient's headache is very likely migrainous. She has had very similar presentations in the past. She is hypertensive here, likely from pain, she can follow with her doctors office for a blood pressure recheck. Impression Primary Impression: Headache Scribe Attestation The scribe's documentation has been prepared under my direction and personally reviewed by me in its entirety. I confirm that the note above accurately reflects all work, treatment, procedures, and medical decision making performed by me. Departure Information Dispostion Home / Self-Care Referrals Jayden Singleton, D.O. (PCP) Forms HOME CARE DOCUMENTATION FORM, IMPORTANT VISIT INFORMATION Patient Instructions My [facility] Additional Instructions fluids rest sleep return if worsening all migraine meds as before Problem Qualifiers Primary Impression: Headache Headache type: unspecified Headache chronicity pattern: chronic headache Intractability: not intractable Qualified Codes: R51 - Headache
[2017-03-07] MEDS ORDERED: HYDROmorphone INJ 2 MG/ML SYR/VIAL ONE (17:39)
[2017-03-07 18:52] VITALS: BP 153/101; PULSE 67; O2SAT 100
[2017-07-20] MEDS ORDERED: VNTHFA/IN INH (10:52)
[2017-07-20] MEDS ORDERED: FLVHFA110 INH (10:52)
[2017-07-20] MEDS ORDERED: OXAP600T PO (11:26)
== END 2017-03-07 18:53 | disposition home or self-care (01) ==
LOC: EDBD 17:00 → C.EDA 17:02
DX: G43.909 Migraine, unspecified, not intractable, without status migrainosus (principal); K21.9 Gastro-esophageal reflux disease without esophagitis; Q05.9 Spina bifida, unspecified; F17.200 Nicotine dependence, unspecified, uncomplicated; Z86.718 Personal history of other venous thrombosis and embolism; Z85.41 Personal history of malignant neoplasm of cervix uteri; Z79.82 Long term (current) use of aspirin

== ENCOUNTER 2017-04-01 20:17 | Emergency (ER) | payer OTHER ==
[~2017-04-01] VITALS: Ht 162.6 cm; Wt 88.2 kg
[2017-04-01 20:21] VITALS: Ht 162.6 cm; Wt 88.2 kg
[2017-04-01] MEDS ORDERED: KETOROLAC TROMETHAMINE 60 MG/2 ML VIAL IM STA (20:30)
[2017-04-01] MEDS ORDERED: HYDROmorphone INJ 2 MG/ML SYR/VIAL IM STA (20:30)
[2017-04-01] MEDS ORDERED: PROMETHAZINE HCL INJ 25 MG/ML 1 ML VIAL IM STA (20:30)
--- NOTE | 2017-04-01 20:51 | EMERGENCY ROOM VISIT NOTE ---
ED Visit Note First contact with patient: 20:24 Staff note: I have reviewed the Patients chart and have discussed this case with my PA. I generally agree with the ED note and findings.
--- NOTE | 2017-04-01 20:53 | EMERGENCY ROOM VISIT NOTE ---
History First contact with patient: 20:24 Chief Complaint: HEADACHE Stated Complaint: MIGRAINE History of Present Illness The patient is a 36 year old female who presents to the Emergency Room with complaints of migraine headache which started 2 hours prior to arrival. The patient states that she took Maxalt without any relief. The patient states the pain is on the left forehead region which is typical for her migraines. She denies any visual changes except for photosensitivity. The patient denies dizziness. The patient admits to nausea but no vomiting. She states this is not the worst headache of her life. Review of Systems 10 system review was performed and was negative unless stated otherwise history of present illness. Past Medical/Surgical History Medical Problems: (1) Blood clot (2) Bronchitis (3) Cervical cancer (4) Cervicalgia (5) GERD (gastroesophageal reflux disease) (6) Migraine (7) Orthopedic surgery (8) Pneumonia (9) Spina bifida Surgical Problems: (1) History of brain surgery Family History Diabetes mellitus Hypertension Kidney disease/stones Social History Smoking Status: Current Every Day Smoker Alcohol Use: none Drug Use: none Marital Status: single Housing Status: lives with family Occupation Status: disabled Current/Historical Medications Scheduled Aspirin (Aspirin), 81 MG PO QPM Azelastine Hcl (Astelin Nasal [place]), 2 SPRAYS NA BID Cyanocobalamin (Vitamin B-12), 1,000 MCG PO QPM Fentanyl (Duragesic), 50 MCG TD CQ72HR Fluticasone Propionate (Flovent Hfa), 2 PUFFS INH BID Folic Acid (Folvite), 1 MG PO HS Gabapentin (Neurontin), 600 MG PO TID Magnesium Oxide (Mag-Ox), 400 MG PO BID Omeprazole (Omeprazole), 20 MG PO BID Oxaprozin (Daypro), 600 MG PO BID Pyridoxine (Vitamin B6), 100 MG PO BID Silver Sulfadiazine (Silvadene), 1 APPLN TOP DAILY Sumatriptan Succinate (Imitrex Nasal [place]), 1 SPRAY NA PRN UD Scheduled PRN Albuterol Hfa (Ventolin Hfa), 2 PUFFS INH QID PRN for SHORTNESS OF BREATH/WHEEZE Clonazepam (Klonopin), 0.5 MG PO BID PRN for Anxiety Cyclobenzaprine Hcl (Flexeril), 5 MG PO TID PRN for Muscle Spasms Hydroxyzine HCl (Hydroxyzine Pamoate), 25 MG PO QID PRN for Anxiety Melatonin (Melatonin), 5 MG PO HS PRN for Sleep Ondansetron Hcl (Zofran), 4 MG PO TID PRN for Nausea Oxycodone HCl (Oxycontin), 10 MG PO Q12 PRN for Pain Rizatriptan Benzoate (Rizatriptan Benzoate), 10 MG PO UD PRN for Migraine Allergies Coded Allergies: Pregabalin (Verified Adverse Reaction, Intermediate, Vision changes., 01/11) Physical Exam Vital Signs Date Time Temp Pulse Resp B/P (MAP) Pulse Ox O2 Delivery O2 Flow Rate FiO2 04/01/17 20:21 36.5 81 18 121/68 99 Room Air Physical Exam GENERAL: 36-year-old white female appears lying in a darkened room in no acute distress. MENTAL STATUS: Patient is alert and oriented x3 EYES: PERRLA. EOMs intact. EARS: Canals clear. TMs without fluid level noted. NECK: Supple, no lymphadenopathy noted. No carotid bruits noted. LUNGS: Clear auscultation without wheezes rales or rhonchi. CARDIAC: Regular rate and rhythm without murmur. Pulses is full and equal throughout. ABDOMEN: Positive bowel sounds all 4 quadrants. Soft, nontender to palpation without organomegaly or masses. NEURO:Cranial nerves two through 12 intact. Cerebellar function intact with [id number]. Fine motor intact with alternating finger motions. Medical Decision & Procedures ED Course The patient was evaluated. The patient's EMR and medication list were reviewed. The patient was independently evaluated by Dr. Abreu who agreed with treatment plan. The patient is on a 2 injection per month treatment plan for her migraine headaches. The patient was given her normal regimen of Dilaudid 2 mg IM, Phenergan 25 mg IM and Toradol 60 mg IM. The patient was reevaluated was feeling better. The patient was discharged home in stable condition. Medical Decision Differential includes: Acute intracranial bleed, trauma, meningitis, encephalitis, increased intracranial pressure, mass or mass effect, facial or dental infection, temporal arteritis, CVA, TIA, acute hypertensive emergency, sinusitis, carbon monoxide exposure. The patient presented with her typical migraine headache symptoms therefore no additional diagnostic imaging was performed. Impression Primary Impression: Migraine Departure Information Dispostion Home / Self-Care Condition GOOD Referrals Jayden Singleton D.OCaleb (PCP) Forms HOME CARE DOCUMENTATION FORM, IMPORTANT VISIT INFORMATION Patient Instructions ED Headache Migraine, My [facility] Additional Instructions Go home and rest in a dark room. Do not drive for the remainder of the evening. Continue current migraine medicines as prescribed. Follow-up with your neurologist as needed. Problem Qualifiers Primary Impression: Migraine Migraine type: unspecified Status migrainosus presence: without status migrainosus Intractability: intractable Qualified Codes: G43.919 - Migraine , unspecified, intractable, without status migrainosus
[2017-04-01 21:32] VITALS: BP 114/63; PULSE 76; TEMP 36.5; O2SAT 99
[2017-07-20] MEDS ORDERED: VNTHFA/IN INH (10:52)
[2017-07-20] MEDS ORDERED: FLVHFA110 INH (10:52)
[2017-07-20] MEDS ORDERED: OXAP600T PO (11:26)
== END 2017-04-01 21:33 | disposition home or self-care (01) ==
LOC: C.EDB 20:20 → C.EDA 21:33
DX: G43.919 Migraine, unspecified, intractable, without status migrainosus (principal); K21.9 Gastro-esophageal reflux disease without esophagitis; Q05.9 Spina bifida, unspecified; F17.200 Nicotine dependence, unspecified, uncomplicated; Z85.41 Personal history of malignant neoplasm of cervix uteri; Z86.718 Personal history of other venous thrombosis and embolism; Z83.3 Family history of diabetes mellitus; Z82.49 Family history of ischemic heart disease and other diseases of the circulatory system; Z84.1 Family history of disorders of kidney and ureter; Z79.82 Long term (current) use of aspirin

== ENCOUNTER 2017-04-26 17:56 | Emergency (ER) | payer OTHER ==
[~2017-04-26] VITALS: Ht 162.6 cm; Wt 87.4 kg
[2017-04-26 18:06] VITALS: TEMP 36.7; Ht 162.6 cm; Wt 87.4 kg
[2017-04-26] MEDS ORDERED: PROMETHAZINE HCL INJ 25 MG/ML 1 ML VIAL IM STA (18:28)
[2017-04-26] MEDS ORDERED: HYDROmorphone HCL 4 MG/ML SYR IM STA (18:28)
[2017-04-26] MEDS ORDERED: KETOROLAC TROMETHAMINE 60 MG/2 ML VIAL IM STA (18:28)
[2017-04-26] MEDS ORDERED: HYDROmorphone INJ 1 MG/ML SYR ONE (18:35)
--- NOTE | 2017-04-26 18:47 | EMERGENCY ROOM VISIT NOTE ---
History Report prepared by Jerry: Valeria Pham Under the Supervision of: Dr. Dustin Cotsa M.D. First contact with patient: 18:25 Chief Complaint: HEADACHE Stated Complaint: MIGRAINE History of Present Illness The patient is a 36 year old female who presents to the Emergency Room with complaints of a persistent headache starting earlier today. The headache is worse on the right side. She has worsening pain with exposure to light. The patient currently rates a pain intensity of 8/10. She has nausea but denies vomiting. She describes her pain to be her typical migraine headache. She tried her prescribed migraine medication without relief. The patient denies any recent falls, trauma, or head injuries. She denies fevers, chills, or any other complaints. Source of History: patient Onset: today Position: head Symptom Intensity: 8/10 Timing: other (persistent) Modifying Factors (Worsening): other (exposure to light) Associated Symptoms: + nausea, No fevers, No chills, No vomiting Review of Systems See HPI for pertinent positives & negatives. A total of 10 systems reviewed and were otherwise negative. Past Medical & Surgical Medical Problems: (1) Blood clot (2) Bronchitis (3) Cervical cancer (4) Cervicalgia (5) GERD (gastroesophageal reflux disease) (6) Migraine (7) Orthopedic surgery (8) Pneumonia (9) Spina bifida Surgical Problems: (1) History of brain surgery Family History Diabetes mellitus Hypertension Kidney disease/stones Social History Smoking Status: Current Every Day Smoker Alcohol Use: none Drug Use: none Marital Status: single Housing Status: lives with family Occupation Status: disabled Current/Historical Medications Scheduled Aspirin (Aspirin), 81 MG PO QPM Azelastine Hcl (Astelin Nasal [place]), 2 SPRAYS NA BID Cyanocobalamin (Vitamin B-12), 1,000 MCG PO QPM Fentanyl (Duragesic), 50 MCG TD CQ72HR Fluticasone Propionate (Flovent Hfa), 2 PUFFS INH BID Folic Acid (Folvite), 1 MG PO HS Gabapentin (Neurontin), 600 MG PO TID Magnesium Oxide (Mag-Ox), 400 MG PO BID Omeprazole (Omeprazole), 20 MG PO BID Oxaprozin (Daypro), 600 MG PO BID Pyridoxine (Vitamin B6), 100 MG PO BID Silver Sulfadiazine (Silvadene), 1 APPLN TOP DAILY Sumatriptan Succinate (Imitrex Nasal [place]), 1 SPRAY NA PRN UD Scheduled PRN Albuterol Hfa (Ventolin Hfa), 2 PUFFS INH QID PRN for SHORTNESS OF BREATH/WHEEZE Clonazepam (Klonopin), 0.5 MG PO BID PRN for Anxiety Cyclobenzaprine Hcl (Flexeril), 5 MG PO TID PRN for Muscle Spasms Hydroxyzine HCl (Hydroxyzine Pamoate), 25 MG PO QID PRN for Anxiety Melatonin (Melatonin), 5 MG PO HS PRN for Sleep Ondansetron Hcl (Zofran), 4 MG PO TID PRN for Nausea Oxycodone HCl (Oxycontin), 10 MG PO Q12 PRN for Pain Rizatriptan Benzoate (Rizatriptan Benzoate), 10 MG PO UD PRN for Migraine Allergies Coded Allergies: Pregabalin (Verified Adverse Reaction, Intermediate, Vision changes., 04/26) Physical Exam Vital Signs Date Time Temp Pulse Resp B/P (MAP) Pulse Ox O2 Delivery O2 Flow Rate FiO2 04/26/17 19:03 67 125/88 99 04/26/17 18:06 36.7 75 18 112/85 97 Room Air Physical Exam GENERAL: Patient is in no acute distress. HEENT: No acute trauma, normocephalic atraumatic, mucous membranes moist, no nasal congestion, no scleral icterus. Pupils equal and reactive to light. NECK: No stridor, no adenopathy, no meningismus, trachea is midline. LUNGS: Clear to auscultation bilaterally, no wheeze, no rhonchi, breath sounds equal. HEART: Without murmurs gallops or rubs, regular rate and rhythm. ABDOMEN: Soft, nontender, bowel sounds positive, no hernias, no peritonitis. EXTREMITIES: No cyanosis or edema, full range of motion of all the joints without pain or difficulty, no signs for acute trauma. NEUROLOGIC: Oriented x 3, no acute motor or sensory deficits, no focal weakness. No cerebellar deficits. SKIN: No rash, no jaundice, no diaphoresis Medical Decision & Procedures Medications Administered Medications (Trade) Dose Ordered Sig/Payton Route Start Time Stop Time Status Last Admin Dose Admin Ketorolac Tromethamine (Toradol Inj) 60 mg NOW STAT IM 04/26/17 18:28 04/26/17 18:30 DC 04/26/17 18:42 60 MG Promethazine HCl (Phenergan Inj) 25 mg NOW STAT IM 04/26/17 18:28 04/26/17 18:30 DC 04/26/17 18:41 25 MG Hydromorphone HCl (Dilaudid Inj) 2 mg STK-MED ONCE .ROUTE 04/26/17 18:35 04/26/17 18:36 DC 04/26/17 18:43 2 MG ED Course 182: The patient was evaluated in room B06. A complete history and physical exam was performed. 1827: Phenergan Inj 25 mg IM, Toradol Inj 60 mg IM 1834: Dilaudid Inj 2 mg IM 1849: Reevaluated the patient. Discussed results and discharge instructions: She verbalized understanding and agreement. The patient is ready for discharge. Medical Decision Medication Reconciliation: I attest that I have personally reviewed the patient' s current medication list. Blood Pressure Screening: Patient was found to have normal blood pressure on screening and does not require follow-up. Differential diagnosis includes but is not limited to tension headache, migraine headache, head trauma, intracranial bleeding, meningitis. The patient presents with a headache that she describes as a migraine. She has no focal neurologic deficits. She is not toxic or febrile. There is no meningismus. She has presented with headaches similar to this in the past. She denies any head trauma. The patient received her typical IM Dilaudid, IM Phenergan and IM Toradol. She has done well with this regimen in the past. I do think she is stable for discharge. Her headache does sound migrainous. Impression Primary Impression: Headache Scribe Attestation The scribe's documentation has been prepared under my direction and personally reviewed by me in its entirety. I confirm that the note above accurately reflects all work, treatment, procedures, and medical decision making performed by me. Departure Information Dispostion Home / Self-Care Referrals No Doctor Assigned Forms HOME CARE DOCUMENTATION FORM, IMPORTANT VISIT INFORMATION Patient Instructions My [facility] Additional Instructions rest fluids sleep return if worsening
[2017-04-26 19:03] VITALS: BP 125/88; PULSE 67; O2SAT 99
[2017-07-20] MEDS ORDERED: VNTHFA/IN INH (10:52)
[2017-07-20] MEDS ORDERED: FLVHFA110 INH (10:52)
[2017-07-20] MEDS ORDERED: OXAP600T PO (11:26)
== END 2017-04-26 19:05 | disposition home or self-care (01) ==
LOC: C.EDB 17:58 → C.EDC 19:05
DX: R51 Headache (principal); K21.9 Gastro-esophageal reflux disease without esophagitis; F17.200 Nicotine dependence, unspecified, uncomplicated; Z85.41 Personal history of malignant neoplasm of cervix uteri; Z98.890 Other specified postprocedural states; Z86.2 Personal history of diseases of the blood and blood-forming organs and certain disorders involving the immune mechanism; Z79.82 Long term (current) use of aspirin; Z79.899 Other long term (current) drug therapy; Z88.8 Allergy status to other drugs, medicaments and biological substances; Z83.3 Family history of diabetes mellitus; Z82.49 Family history of ischemic heart disease and other diseases of the circulatory system; Z84.1 Family history of disorders of kidney and ureter

== ENCOUNTER 2017-05-14 21:26 | Emergency (ER) | payer OTHER ==
[~2017-05-14] VITALS: Ht 162.6 cm; Wt 93.8 kg
[2017-05-14 21:32] VITALS: TEMP 36.7; Ht 162.6 cm; Wt 93.8 kg
[2017-05-14] MEDS ORDERED: PROMETHAZINE HCL INJ 25 MG/ML 1 ML VIAL IM STA (21:40)
[2017-05-14] MEDS ORDERED: HYDROmorphone HCL 4 MG/ML SYR IM STA (21:40)
[2017-05-14] MEDS ORDERED: KETOROLAC TROMETHAMINE 60 MG/2 ML VIAL IM STA (21:40)
[2017-05-14] MEDS ORDERED: HYDROmorphone INJ 2 MG/ML SYR/VIAL ONE (21:46)
--- NOTE | 2017-05-14 21:46 | EMERGENCY ROOM VISIT NOTE ---
History First contact with patient: 21:34 Chief Complaint: HEADACHE Stated Complaint: MIGRAINE History of Present Illness The patient is a 37 year old female who presents to the Emergency Room with complaints of migraine headache which started last evening. The patient states she took her Imitrex without relief. The patient states that the headache is at the left side of her neck and her right side of her face. The patient admits to associated photosensitivity. The patient denies any other visual changes or dizziness. The patient admits to nausea but denies vomiting. The patient states that the symptoms are typical for her migraine headaches. The patient states this is not the worst headache of her life. Review of Systems 6 system review was performed and was negative unless stated otherwise in history of present illness. Past Medical/Surgical History Medical Problems: (1) Blood clot (2) Bronchitis (3) Cervical cancer (4) Cervicalgia (5) GERD (gastroesophageal reflux disease) (6) Migraine (7) Orthopedic surgery (8) Pneumonia (9) Spina bifida Surgical Problems: (1) History of brain surgery Family History Diabetes mellitus Hypertension Kidney disease/stones Social History Smoking Status: Current Every Day Smoker Alcohol Use: none Drug Use: none Marital Status: single Housing Status: lives with family Occupation Status: disabled Current/Historical Medications Scheduled Aspirin (Aspirin), 81 MG PO QPM Azelastine Hcl (Astelin Nasal [place]), 2 SPRAYS NA BID Cyanocobalamin (Vitamin B-12), 1,000 MCG PO QPM Fentanyl (Duragesic), 50 MCG TD CQ72HR Fluticasone Propionate (Flovent Hfa), 2 PUFFS INH BID Folic Acid (Folvite), 1 MG PO HS Gabapentin (Neurontin), 600 MG PO TID Magnesium Oxide (Mag-Ox), 400 MG PO BID Omeprazole (Omeprazole), 20 MG PO BID Oxaprozin (Daypro), 600 MG PO BID Pyridoxine (Vitamin B6), 100 MG PO BID Silver Sulfadiazine (Silvadene), 1 APPLN TOP DAILY Sumatriptan Succinate (Imitrex Nasal [place]), 1 SPRAY NA PRN UD Scheduled PRN Albuterol Hfa (Ventolin Hfa), 2 PUFFS INH QID PRN for SHORTNESS OF BREATH/WHEEZE Clonazepam (Klonopin), 0.5 MG PO BID PRN for Anxiety Cyclobenzaprine Hcl (Flexeril), 5 MG PO TID PRN for Muscle Spasms Hydroxyzine HCl (Hydroxyzine Pamoate), 25 MG PO QID PRN for Anxiety Melatonin (Melatonin), 5 MG PO HS PRN for Sleep Ondansetron Hcl (Zofran), 4 MG PO TID PRN for Nausea Oxycodone HCl (Oxycontin), 10 MG PO Q12 PRN for Pain Rizatriptan Benzoate (Rizatriptan Benzoate), 10 MG PO UD PRN for Migraine Physical Exam Vital Signs Date Time Temp Pulse Resp B/P (MAP) Pulse Ox O2 Delivery O2 Flow Rate FiO2 05/14/17 21:32 36.7 92 18 122/83 97 Room Air Physical Exam GENERAL: 37-year-old white female appears lying in a darkened room in no acute distress. MENTAL STATUS: Patient is alert and oriented x3 EYES: PERRLA. EOMs intact. Funduscopic exam unremarkable. EARS: Canals clear. TMs without fluid level noted. NECK: Supple, no lymphadenopathy noted. No carotid bruits noted. LUNGS: Clear auscultation without wheezes rales or rhonchi. CARDIAC: Regular rate and rhythm without murmur. Pulses is full and equal throughout. ABDOMEN: Positive bowel sounds all 4 quadrants. Soft, nontender to palpation without organomegaly or masses. NEURO:Cranial nerves two through 12 intact. Cerebellar function intact with [id number]. Fine motor intact with alternating finger motions. Medical Decision & Procedures ED Course The patient was evaluated. The patient's EMR medication list were reviewed. The patient was given her normal treatment regimen of Dilaudid 2 mg IM, Toradol 60 mg IM and Phenergan 25 mg IM. I did discuss with the patient that in the near future within the next month or 2. We will be a lemonade in the 2 injection or month treatment plan for her migraine headaches. I informed her that we will no longer be giving narcotics for migraine headaches. I discussed she may want to contact her family physician about alternative medications for her headaches if they persist. The patient verbalized understanding. The patient was reevaluated was feeling better. The patient was discharged home in stable condition. Medical Decision Differential includes: Acute intracranial bleed, trauma, meningitis, encephalitis, increased intracranial pressure, mass or mass effect, facial or dental infection, temporal arteritis, CVA, TIA, acute hypertensive emergency, sinusitis, carbon monoxide exposure. The patient presented with her typical migraine headache symptoms therefore no additional diagnostic imaging was performed. Impression Primary Impression: Migraine Departure Information Dispostion Home / Self-Care Condition GOOD Referrals No Doctor, Assigned (PCP) Forms HOME CARE DOCUMENTATION FORM, IMPORTANT VISIT INFORMATION Patient Instructions ED Headache Migraine, My [facility] Additional Instructions Go home and rest in a dark room for the remainder of the evening. Do not drive for the remainder of the evening. As I discussed with you at the ER visit recommend follow with your family doctor for alternative solutions/medications for your headaches since we will no longer be giving narcotics in the ER for urine headaches. Problem Qualifiers Primary Impression: Migraine Migraine type: unspecified Status migrainosus presence: with status migrainosus Intractability: intractable Qualified Codes: G43.911 - Migraine , unspecified, intractable, with status migrainosus
[2017-05-14 22:00] VITALS: BP 122/83; PULSE 92; O2SAT 97
[2017-07-20] MEDS ORDERED: VNTHFA/IN INH (10:52)
[2017-07-20] MEDS ORDERED: FLVHFA110 INH (10:52)
[2017-07-20] MEDS ORDERED: OXAP600T PO (11:26)
== END 2017-05-14 22:01 | disposition home or self-care (01) ==
LOC: C.EDB 21:27 → C.EDD 22:01
DX: G43.909 Migraine, unspecified, not intractable, without status migrainosus (principal); K21.9 Gastro-esophageal reflux disease without esophagitis; F17.200 Nicotine dependence, unspecified, uncomplicated; Z85.41 Personal history of malignant neoplasm of cervix uteri; Z86.2 Personal history of diseases of the blood and blood-forming organs and certain disorders involving the immune mechanism; Z98.890 Other specified postprocedural states; Z79.82 Long term (current) use of aspirin; Z79.899 Other long term (current) drug therapy; Z83.3 Family history of diabetes mellitus; Z82.49 Family history of ischemic heart disease and other diseases of the circulatory system; Z84.1 Family history of disorders of kidney and ureter

== ENCOUNTER 2017-05-23 18:41 | Emergency (ER) | payer OTHER ==
[~2017-05-23] VITALS: Ht 162.6 cm; Wt 88.0 kg
[2017-05-23 18:45] VITALS: Ht 162.6 cm; Wt 88.0 kg
[2017-05-23] MEDS ORDERED: PROMETHAZINE HCL INJ 25 MG/ML 1 ML VIAL IM STA (18:56)
[2017-05-23] MEDS ORDERED: HYDROmorphone INJ 1 MG/ML SYR IM STA (18:56)
[2017-05-23] MEDS ORDERED: KETOROLAC TROMETHAMINE 60 MG/2 ML VIAL IM STA (18:56)
--- NOTE | 2017-05-23 19:03 | EMERGENCY ROOM VISIT NOTE ---
History First contact with patient: 18:49 Chief Complaint: HEADACHE Stated Complaint: MIGRAINE History of Present Illness The patient is a 37 year old female who presents to the Emergency Room with complaints of a 24-hour migraine. The patient reports that her migraine is similar to all prior migraines, describing it as a pain that starts in her left neck and then goes into the left side of her head and behind her eyes. She reports photophobia and phonophobia. She also reports nausea without vomiting. She reports that this headache is not the worse headache of her life. She is currently under the management of Dr. Wood. She also underwent Botox injections 4 days ago at the [facility]. She reports that the Botox seemed to make her headache worse. She currently rates her discomfort a 9 out of 10. Review of Systems 10 system review was performed and was negative except for pertinent positives and negatives as indicated in history of present illness Past Medical/Surgical History Medical Problems: (1) Blood clot (2) Bronchitis (3) Cervical cancer (4) Cervicalgia (5) GERD (gastroesophageal reflux disease) (6) Migraine (7) Orthopedic surgery (8) Pneumonia (9) Spina bifida Surgical Problems: (1) History of brain surgery Family History Diabetes mellitus Hypertension Kidney disease/stones Social History Smoking Status: Current Every Day Smoker Alcohol Use: none Drug Use: none Marital Status: single Housing Status: lives with family Occupation Status: disabled Current/Historical Medications Scheduled Aspirin (Aspirin), 81 MG PO QPM Azelastine Hcl (Astelin Nasal [place]), 2 SPRAYS NA BID Cyanocobalamin (Vitamin B-12), 1,000 MCG PO QPM Fentanyl (Duragesic), 50 MCG TD CQ72HR Fluticasone Propionate (Flovent Hfa), 2 PUFFS INH BID Folic Acid (Folvite), 1 MG PO HS Gabapentin (Neurontin), 600 MG PO TID Magnesium Oxide (Mag-Ox), 400 MG PO BID Omeprazole (Omeprazole), 20 MG PO BID Oxaprozin (Daypro), 600 MG PO BID Pyridoxine (Vitamin B6), 100 MG PO BID Silver Sulfadiazine (Silvadene), 1 APPLN TOP DAILY Sumatriptan Succinate (Imitrex Nasal [place]), 1 SPRAY NA PRN UD Scheduled PRN Albuterol Hfa (Ventolin Hfa), 2 PUFFS INH QID PRN for SHORTNESS OF BREATH/WHEEZE Clonazepam (Klonopin), 0.5 MG PO BID PRN for Anxiety Cyclobenzaprine Hcl (Flexeril), 5 MG PO TID PRN for Muscle Spasms Hydroxyzine HCl (Hydroxyzine Pamoate), 25 MG PO QID PRN for Anxiety Melatonin (Melatonin), 5 MG PO HS PRN for Sleep Ondansetron Hcl (Zofran), 4 MG PO TID PRN for Nausea Oxycodone HCl (Oxycontin), 10 MG PO Q12 PRN for Pain Rizatriptan Benzoate (Rizatriptan Benzoate), 10 MG PO UD PRN for Migraine Physical Exam Vital Signs Date Time Temp Pulse Resp B/P (MAP) Pulse Ox O2 Delivery O2 Flow Rate FiO2 05/23/17 18:45 36.6 89 18 135/89 96 Room Air Physical Exam CONSTITUTIONAL: Healthy and well nourished. Alert and oriented X 3 with flat affect. Patient is resting on the bed with a hoodie over her head. HEENT: Normocephalic, atraumatic. Pupils equal, round and reactive. Patient is photophobic, precluding funduscopic exam. NECK: Full active range of motion without discomfort. No nuchal rigidity, JVD or carotid bruits. RESPIRATORY: Clear to auscultation bilaterally with no wheezing, crackles, rhonchi or stridor. CARDIOVASCULAR: Regular rate and rhythm with no murmurs, rubs or gallops. MUSCULOSKELETAL: Full range of motion of all joints without discomfort. INTEGUMENTARY: No rash or other significant dermatologic conditions noted. NEUROLOGIC: Cranial nerves II-XII grossly intact. No focal neurologic deficits noted. Negative pronator drift. No ataxia with ambulation to her examination room. Medical Decision & Procedures ED Course Patient history and physical exam were performed. Nurse's notes were reviewed. Vital signs were reviewed and normal. Review medical records shows that the patient is currently on a narcotic treatment plan for her migraines. This is her first visit of the month. She was administered Dilaudid 2 mg, Toradol 60 mg and Phenergan 25 mg IM per her usual treatment protocol. The patient was instructed to continue follow-up with her neurologist and pain clinic for further migraine management. She is welcome to return to the emergency department for recurrent migraine, as limited by her treatment plan. The patient voiced understanding of all discharge instructions, requested immediate discharge after her injections, and rated her pain a 7 out of 10 at the conclusion of my exam. Medical Decision Medication Reconcilliation Current Medication List: was personally reviewed by me Blood Pressure Screening Patient's blood pressure: Normal blood pressure Impression Primary Impression: Migraine Departure Information Referrals Jayden Singleton, D.OCaleb (PCP) Patient Instructions My [facility] Problem Qualifiers Primary Impression: Migraine Migraine type: unspecified Status migrainosus presence: without status migrainosus Intractability: not intractable Qualified Codes: G43.909 - Migraine, unspecified, not intractable, without status migrainosus
[2017-05-23 19:07] VITALS: BP 135/89; PULSE 89; TEMP 36.6; O2SAT 96
[2017-07-20] MEDS ORDERED: FLVHFA110 INH (10:52)
[2017-07-20] MEDS ORDERED: VNTHFA/IN INH (10:52)
[2017-07-20] MEDS ORDERED: OXAP600T PO (11:26)
== END 2017-05-23 19:11 | disposition home or self-care (01) ==
LOC: C.EDB 18:42 → C.EDD 19:11
DX: G43.909 Migraine, unspecified, not intractable, without status migrainosus (principal); Q05.9 Spina bifida, unspecified; K21.9 Gastro-esophageal reflux disease without esophagitis; F17.200 Nicotine dependence, unspecified, uncomplicated; Z85.41 Personal history of malignant neoplasm of cervix uteri; Z87.01 Personal history of pneumonia (recurrent); Z98.890 Other specified postprocedural states; Z83.3 Family history of diabetes mellitus; Z82.49 Family history of ischemic heart disease and other diseases of the circulatory system; Z79.82 Long term (current) use of aspirin; Z79.899 Other long term (current) drug therapy

== ENCOUNTER 2017-06-15 12:25 | Emergency (ER) | payer OTHER ==
[~2017-06-15] VITALS: Ht 162.6 cm; Wt 90.4 kg
[2017-06-15 12:29] VITALS: TEMP 36.6; Ht 162.6 cm; Wt 90.4 kg
[2017-06-15] MEDS ORDERED: HYDROmorphone INJ 2 MG/ML SYR/VIAL IM STA (12:57)
[2017-06-15] MEDS ORDERED: PROMETHAZINE HCL INJ 25 MG/ML 1 ML VIAL IM STA (12:57)
[2017-06-15] MEDS ORDERED: KETOROLAC TROMETHAMINE 60 MG/2 ML VIAL IM STA (12:57)
[2017-06-15 14:06] VITALS: BP 132/88; PULSE 76; O2SAT 98
--- NOTE | 2017-06-15 17:27 | EMERGENCY ROOM VISIT NOTE ---
History Report prepared by Jerry: Hailee Thakur Under the Supervision of: Dr. Markos Trejo M.D. First contact with patient: 12:49 Chief Complaint: HEADACHE Stated Complaint: MIGRAINE History of Present Illness The patient is a 37 year old female who presents to the Emergency Room with complaints of a worsening headache for the past 2 days. The patient has a history of migraine headaches and states that this feels like her typical migraine headache. Her pain goes from the left side of her neck across and into the right side of her head. She rates her pain as an 8/10 in severity. The patient is also experiencing nausea. Light exacerbates her symptoms. She denies fever, vomiting, and chance of . She took her Imitrex without any relief. Source of History: patient Onset: 2 days ago Position: head Symptom Intensity: 8/10 Timing: worsening Modifying Factors (Worsening): other (light) Associated Symptoms: + neck pain, + nausea, No fevers, No vomiting, No weakness, No numbness Note: Pt denies chance of . Review of Systems See HPI for pertinent positives & negatives. A total of 10 systems reviewed and were otherwise negative. Past Medical & Surgical Medical Problems: (1) Blood clot (2) Bronchitis (3) Cervical cancer (4) Cervicalgia (5) GERD (gastroesophageal reflux disease) (6) Migraine (7) Orthopedic surgery (8) Pneumonia (9) Spina bifida Surgical Problems: (1) History of brain surgery Family History Diabetes mellitus Hypertension Kidney disease/stones Social History Smoking Status: Current Every Day Smoker Alcohol Use: none Drug Use: none Marital Status: single Housing Status: lives with family Occupation Status: disabled Current/Historical Medications Scheduled Aspirin (Aspirin), 81 MG PO QPM Azelastine Hcl (Astelin Nasal [place]), 2 SPRAYS NA BID Cyanocobalamin (Vitamin B-12), 1,000 MCG PO QPM Fentanyl (Duragesic), 50 MCG TD CQ72HR Fluticasone Propionate (Flovent Hfa), 2 PUFFS INH BID Folic Acid (Folvite), 1 MG PO HS Gabapentin (Neurontin), 600 MG PO TID Magnesium Oxide (Mag-Ox), 400 MG PO BID Omeprazole (Omeprazole), 20 MG PO BID Oxaprozin (Daypro), 600 MG PO BID Pyridoxine (Vitamin B6), 100 MG PO BID Silver Sulfadiazine (Silvadene), 1 APPLN TOP DAILY Sumatriptan Succinate (Imitrex Nasal [place]), 1 SPRAY NA PRN UD Scheduled PRN Albuterol Hfa (Ventolin Hfa), 2 PUFFS INH QID PRN for SHORTNESS OF BREATH/WHEEZE Clonazepam (Klonopin), 0.5 MG PO BID PRN for Anxiety Cyclobenzaprine Hcl (Flexeril), 5 MG PO TID PRN for Muscle Spasms Hydroxyzine HCl (Hydroxyzine Pamoate), 25 MG PO QID PRN for Anxiety Melatonin (Melatonin), 5 MG PO HS PRN for Sleep Ondansetron Hcl (Zofran), 4 MG PO TID PRN for Nausea Oxycodone HCl (Oxycontin), 10 MG PO Q12 PRN for Pain Rizatriptan Benzoate (Rizatriptan Benzoate), 10 MG PO UD PRN for Migraine Allergies Coded Allergies: Pregabalin (Verified Adverse Reaction, Intermediate, Vision changes., 06/15) Physical Exam Vital Signs Date Time Temp Pulse Resp B/P (MAP) Pulse Ox O2 Delivery O2 Flow Rate FiO2 06/15/17 14:06 76 18 132/88 98 06/15/17 12:29 36.6 90 16 134/97 97 Room Air Physical Exam Constitutional: Vital signs reviewed. Eyes: Pupils are equal round reactive to light. Conjunctiva are noninjected. ENT: Pharynx is clear without erythema or exudate. Mucous membranes are moist. Neck supple without meningeal signs. Respiratory: Clear to auscultation bilaterally. Breath sounds are equal bilaterally. Cardiovascular: Regular rate and rhythm. No rubs or gallops. GI: Soft, nondistended and nontender. Bowel sounds are present. Musculoskeletal: No peripheral edema. No lower extremity tenderness. Integumentary: No cyanosis. Neurological: The patient is awake and alert. Cranial nerves II-XII are intact. Motor is 5 out of 5 all extremities. Sensation is intact to light touch all extremities. Normal speech. No pronator drift. Psychiatric: Normal affect. Medical Decision & Procedures Medications Administered Medications (Trade) Dose Ordered Sig/Payton Route Start Time Stop Time Status Last Admin Dose Admin Hydromorphone HCl (Dilaudid Inj) 2 mg ONE STAT IM 06/15/17 12:57 06/15/17 12:59 DC 06/15/17 13:04 2 MG Promethazine HCl (Phenergan Inj) 25 mg NOW STAT IM 06/15/17 12:57 06/15/17 12:59 DC 06/15/17 13:05 25 MG Ketorolac Tromethamine (Toradol Inj) 30 mg NOW STAT IM 06/15/17 12:57 06/15/17 12:59 DC 06/15/17 13:05 30 MG ED Course 1249: The patient was evaluated in room A9B. A complete history and physical exam was performed. 1257: Toradol 30 mg IM, Phenergan 25 mg IM, Dilaudid 2 mg IM 1335: I reassessed the patient at this time. She is feeling better and would like to go home and rest. I discussed the results and treatment plan with the patient. I answered all pertaining questions that she had. She expressed understanding and verbalized agreement. The patient will be discharged home. Medical Decision This is a 37-year-old female who presents with a migraine headache. I did perform a limited focused review of portions of the patient's old chart on the electronic medical record. The patient was here May 23 for a migraine. Treated with Dilaudid, Phenergan, and Toradol per her treatment plan. I did evaluate the patient as noted above. The patient is presenting with a typical migraine headache. She has had many migraines in the past and is presenting here multiple times for similar migraines. She is neurologically intact and has no fever. I have no recent suspect intracranial hemorrhage or meningitis. I did treat her with IM Toradol, Phenergan and Dilaudid. On reassessment she felt somewhat better but wanted to go home so that she could sleep. She was advised follow with her doctor. She was discharged in good condition. Medication Reconcilliation Current Medication List: was personally reviewed by me Blood Pressure Screening Patient's blood pressure: Elevated blood pressure Blood pressure disposition: Referred to PCP Impression Primary Impression: Migraine headache without aura Scribe Attestation The scribe's documentation has been prepared under my direct and personally reviewed by me in its entirety. I confirm that the note above accurately reflects all work, treatment, procedures, and medical decision making performed by me. Departure Information Dispostion Home / Self-Care Referrals No Doctor, Assigned (PCP) Jayden Singleton, D.O. Forms HOME CARE DOCUMENTATION FORM, IMPORTANT VISIT INFORMATION Patient Instructions ED Headache Migraine, My [facility] Additional Instructions You have been examined and treated today on an emergency basis only. This is not a substitute for, or an effort to provide, complete comprehensive medical care. It is impossible to recognize and treat all injuries or illnesses in a single emergency department visit. It is therefore important that you follow up closely with your physician. Call as soon as possible for an appointment. Return for worsening symptoms or if you develop fever, numbness or weakness on one side of your body, difficulties with your speech or walking, or any other concerning symptoms. Problem Qualifiers Primary Impression: Migraine headache without aura Status migrainosus presence: without status migrainosus Intractability: not intractable Qualified Codes: G43.009 - Migraine without aura, not intractable , without status migrainosus
[2017-07-20] MEDS ORDERED: FLVHFA110 INH (10:52)
[2017-07-20] MEDS ORDERED: VNTHFA/IN INH (10:52)
[2017-07-20] MEDS ORDERED: OXAP600T PO (11:26)
== END 2017-06-15 14:07 | disposition home or self-care (01) ==
LOC: C.EDB 12:27 → C.EDA 14:07
DX: G43.009 Migraine without aura, not intractable, without status migrainosus (principal); Z86.718 Personal history of other venous thrombosis and embolism; K21.9 Gastro-esophageal reflux disease without esophagitis; Z87.01 Personal history of pneumonia (recurrent); Q05.9 Spina bifida, unspecified; Z85.41 Personal history of malignant neoplasm of cervix uteri; Z83.3 Family history of diabetes mellitus; Z82.49 Family history of ischemic heart disease and other diseases of the circulatory system; Z84.1 Family history of disorders of kidney and ureter; F17.210 Nicotine dependence, cigarettes, uncomplicated; Z79.82 Long term (current) use of aspirin; Z79.899 Other long term (current) drug therapy

== ENCOUNTER 2017-07-16 19:15 | Emergency (ER) | payer OTHER ==
[~2017-07-16] VITALS: Ht 162.6 cm; Wt 88.5 kg
[2017-07-16 19:20] VITALS: TEMP 36.9; Ht 162.6 cm; Wt 88.5 kg
[2017-07-16] MEDS ORDERED: HYDROmorphone INJ 2 MG/ML SYR/VIAL IM STA (19:35)
[2017-07-16] MEDS ORDERED: KETOROLAC TROMETHAMINE 60 MG/2 ML VIAL IM STA (19:35)
[2017-07-16] MEDS ORDERED: PROMETHAZINE HCL INJ 25 MG/ML 1 ML VIAL IM STA (19:35)
--- NOTE | 2017-07-16 19:42 | EMERGENCY ROOM VISIT NOTE ---
History Report prepared by Jerry: Angelo Garza Under the Supervision of: Dr. Suman Boyer M.D. First contact with patient: 19:24 Chief Complaint: HEADACHE Stated Complaint: MIGRAINE History of Present Illness The patient is a 37 year old female who presents to the Emergency Room with complaints of a worsening headache beginning four days ago. She has a history of migraines and states that her current headache feels like a typical migraine. She also complains of photophobia, sensitivity to sound, nausea and neck pain. The patient denies any vomiting, fevers or chills. She denies any recent trauma or injury. She notes that she tried Botox injections early last month, and is scheduled for more in the coming month. The patient is not on any blood thinners. Source of History: patient, parent Onset: Four days ago Position: head Timing: worsening Associated Symptoms: + neck pain, + nausea, No fevers, No chills, No vomiting Note: The patient also complains of photophobia, and sensitivity to sound. Review of Systems See HPI for pertinent positives & negatives. A total of 10 systems reviewed and were otherwise negative. Past Medical & Surgical Medical Problems: (1) Blood clot (2) Bronchitis (3) Cervical cancer (4) Cervicalgia (5) GERD (gastroesophageal reflux disease) (6) Migraine (7) Orthopedic surgery (8) Pneumonia (9) Spina bifida Surgical Problems: (1) History of brain surgery Old medical records were reviewed. Nurse's notes were reviewed and I agree with. Family History Diabetes mellitus Hypertension Kidney disease/stones Social History Smoking Status: Current Every Day Smoker Alcohol Use: none Drug Use: none Marital Status: single Housing Status: lives with family Occupation Status: disabled Current/Historical Medications Scheduled Aspirin (Aspirin), 81 MG PO QPM Azelastine Hcl (Astelin Nasal [place]), 2 SPRAYS NA BID Baclofen (Lioresal), 20 MG PO BID Cyanocobalamin (Vitamin B-12), 1,000 MCG PO QPM Fentanyl (Duragesic), 50 MCG TD CQ72HR Fluticasone Propionate (Flovent Hfa), 2 PUFFS INH BID Folic Acid (Folvite), 1 MG PO HS Gabapentin (Neurontin), 600 MG PO TID Magnesium Oxide (Mag-Ox), 400 MG PO BID Omeprazole (Omeprazole), 20 MG PO BID Oxaprozin (Daypro), 600 MG PO BID Pyridoxine (Vitamin B6), 100 MG PO BID Silver Sulfadiazine (Silvadene), 1 APPLN TOP DAILY Sumatriptan Succinate (Imitrex Nasal [place]), 1 SPRAY NA PRN UD Scheduled PRN Albuterol Hfa (Ventolin Hfa), 2 PUFFS INH QID PRN for SHORTNESS OF BREATH/WHEEZE Clonazepam (Klonopin), 0.5 MG PO BID PRN for Anxiety Hydroxyzine HCl (Hydroxyzine Pamoate), 25 MG PO QID PRN for Anxiety Melatonin (Melatonin), 5 MG PO HS PRN for Sleep Ondansetron Hcl (Zofran), 4 MG PO TID PRN for Nausea Oxycodone HCl (Oxycontin), 10 MG PO Q12 PRN for Pain Rizatriptan Benzoate (Rizatriptan Benzoate), 10 MG PO UD PRN for Migraine Allergies Coded Allergies: Pregabalin (Verified Adverse Reaction, Intermediate, Vision changes., 06/15) Physical Exam Vital Signs Date Time Temp Pulse Resp B/P (MAP) Pulse Ox O2 Delivery O2 Flow Rate FiO2 07/16/17 20:08 71 18 155/94 96 07/16/17 19:20 36.9 75 20 125/85 95 Room Air Physical Exam General: Well developed, well nourished in no acute distress, breathing comfortably on room air. Normal speech. Appears uncomfortable. HEENT: Normal cephalic atraumatic. Pupils are equal round and reactive to light. Extraocular movements are intact. Photophobia. Oropharynx is pink with moist mucous membranes. No swelling of the mouth lips or tongue. Neck: Supple with a midline trachea. No meningeal signs or stiffness, no JVD or bruits. No Stridor. Chest: Clear to auscultation bilaterally. No wheezes or rhonchi. No increased work of breathing. Heart: regular rate and rhythm. Abdomen: Soft nontender, nondistended without rebound guarding or rigidity. Extremities: No cyanosis clubbing or edema. No calf tenderness or assymetry Spine/Back. Non tender to palpation. No CVA tenderness Skin: Good turgor without rashes. Neurologic exam: Cranial nerves two through 12 are intact. Motor and sensation are intact and symmetrical throughout. Medical Decision & Procedures Medications Administered Medications (Trade) Dose Ordered Sig/Payton Route Start Time Stop Time Status Last Admin Dose Admin Hydromorphone HCl (Dilaudid Inj) 2 mg NOW STAT IM 07/16/17 19:35 07/16/17 19:38 DC 07/16/17 19:48 2 MG Promethazine HCl (Phenergan Inj) 25 mg NOW STAT IM 07/16/17 19:35 07/16/17 19:38 DC 07/16/17 19:48 25 MG Ketorolac Tromethamine (Toradol Inj) 60 mg NOW STAT IM 07/16/17 19:35 07/16/17 19:38 DC 07/16/17 19:47 60 MG ED Course 1924: Past medical records reviewed. The patient was evaluated in room A10, and a complete history and physical examination were performed. 1934: Ordered Toradol Inj 60 mg IM, Phenergan Inj 25 mg IM, Dilaudid Inj 2 mg IM. 1944: Upon reevaluation, the patient is resting comfortably. I discussed the results and treatment plan with her. She verbalized agreement of the treatment plan. The patient was discharged home. Medical Decision Differentials include, but are not limited to; migraine, ICH, CVA, aneurysm, tension headache and electrolyte or metabolic abnormality. This patient comes in as described above. She was placed in room A 10. She is here for treatment and evaluation of headache and so the migraines. She's been trying Maxalt at home without relief. She has a normal neurologic exam she appears uncomfortable and has photophobia. She does come here frequently. I talked the patient and mother at length and told her that we are minimizing the use of narcotics in the ER for chronic pain. I told her that in the future we will not be using narcotics for her migraines but will happy to treat her using non-narcotics. I did give her typical Dilaudid 2 mg IM, Phenergan 25 mg IM and Toradol 60 mg IM. Her mother will be driving. She has nothing to suggest this is anything but a typical migraine. She will return if: increasing pain, worsening of symptoms, any new problems or concerns. Impression Primary Impression: Migraine Scribe Attestation The scribe's documentation has been prepared under my direction and personally reviewed by me in its entirety. I confirm that the note above accurately reflects all work, treatment, procedures, and medical decision making performed by me. Departure Information Dispostion Home / Self-Care Referrals Jayden Singleton D.O. (PCP) Forms HOME CARE DOCUMENTATION FORM, IMPORTANT VISIT INFORMATION Patient Instructions My [facility] Additional Instructions Rest. Drink plenty of fluids. Return if: Increasing pain, headaches different than normal, worsening of symptoms, any new problems or concerns. Follow-up with your doctor this week for recheck and further management of your chronic headaches
[2017-07-16 20:08] VITALS: BP 155/94; PULSE 71; O2SAT 96
[2017-07-20] MEDS ORDERED: VNTHFA/IN INH (10:52)
[2017-07-20] MEDS ORDERED: FLVHFA110 INH (10:52)
[2017-07-20] MEDS ORDERED: OXAP600T PO (11:26)
== END 2017-07-16 20:08 | disposition home or self-care (01) ==
LOC: C.EDB 19:15 → C.EDA 20:08
DX: G43.909 Migraine, unspecified, not intractable, without status migrainosus (principal); K21.9 Gastro-esophageal reflux disease without esophagitis; Q05.9 Spina bifida, unspecified; F17.200 Nicotine dependence, unspecified, uncomplicated; Z86.718 Personal history of other venous thrombosis and embolism; Z85.41 Personal history of malignant neoplasm of cervix uteri; Z79.82 Long term (current) use of aspirin; Z83.3 Family history of diabetes mellitus; Z82.49 Family history of ischemic heart disease and other diseases of the circulatory system; Z84.1 Family history of disorders of kidney and ureter

== ENCOUNTER 2017-07-20 13:38 | Emergency (ER) | payer OTHER ==
[~2017-07-20] VITALS: Ht 165.1 cm; Wt 91.8 kg
[~2017-07-20 13:38] MED LIST changes: -CYCL5TAB PO; +FLVHFA110 INH; +OXAP600T PO; +VNTHFA/IN INH
[2017-07-20 13:41] VITALS: TEMP 37.4; Ht 165.1 cm; Wt 91.8 kg
[2017-07-20] MEDS ORDERED: KETOROLAC TROMETHAMINE 60 MG/2 ML VIAL IM STA (14:17)
[2017-07-20] MEDS ORDERED: MELA5CAP PO (14:39)
--- NOTE | 2017-07-20 14:55 | DIAGNOSTIC IMAGING REPORT ---
CT OF THE HEAD WITHOUT CONTRAST CLINICAL HISTORY: Severe atypical headache. COMPARISON STUDY: Head CT February 07, 2017 and MRI of the brain September 02, 2016. CT DOSE: 690.05 mGycm TECHNIQUE: Helical axial images of the head were obtained without IV contrast. Automated exposure control was utilized for the study. A dose lowering technique was utilized adhering to the principles of ALARA. FINDINGS: No acute intracranial hemorrhage, midline shift or mass effect is present. Ventricular system is normal. There are stable postoperative findings consistent with a suboccipital craniectomy. Fullness at the level of the foramen magnum is unchanged. There are no findings to suggest acute dural sinus thrombosis or acute territorial infarct. There are no significant calvarial abnormalities. There is minimal mucosal thickening of the ethmoid sinuses. Mastoid air cells are clear. IMPRESSION: No acute intracranial findings. No change since previous exam. Electronically signed by: Tab Carver M.D. 07/20/2017 2:53 PM Dictated Date/Time: 07/20/2017 2:50 PM
[2017-07-20] MEDS ORDERED: FOLI1TAB7 PO (14:57)
--- NOTE | 2017-07-20 14:57 | DIAGNOSTIC IMAGING REPORT ---
CT OF THE CERVICAL SPINE WITHOUT CONTRAST CLINICAL HISTORY: Midline neck pain. COMPARISON STUDY: Cervical spine CT February 13, 2015. TECHNIQUE: Helical axial images of the cervical spine were obtained without IV contrast. Sagittal and coronal reconstructions were viewed. A dose lowering technique was utilized adhering to the principles of ALARA. FINDINGS: There are stable postoperative findings consistent with a suboccipital craniectomy. The craniocervical junction is intact. There is no acute cervical spine fracture or subluxation. There is no prevertebral edema. The central canal and neural foramen are suboptimally assessed by CT. Facet joints are intact. Disc spaces are preserved. IMPRESSION: 1. No acute cervical spine fracture or subluxation. 2. Stable postoperative findings consistent with suboccipital craniotomy. 3. No change in appearance of the cervical spine since exam of February 13, 2015. Suboptimal evaluation of the central canal and neural foramen given CT technique. Electronically signed by: Tab Carver M.D. 07/20/2017 2:56 PM Dictated Date/Time: 07/20/2017 2:54 PM
--- NOTE | 2017-07-20 15:37 | EMERGENCY ROOM VISIT NOTE ---
ED Visit Note First contact with patient: 13:45 CHIEF COMPLAINT: Severe neck pain and right-sided facial pain today HISTORY OF PRESENT ILLNESS: Patient is a 37-year-old white female with chronic pain syndrome secondary to multiple issues and well known to the emergency department for frequent visits who presents to the emergency department for evaluation of neck pain and right-sided facial pain. Patient has a long- standing history of chronic migraine headache disorder, myofascial pain syndrome , postoperative neck pain, anxiety and depression, and chronic opiate dependency. She previously had been seen in the emergency department 2 times per month and would receive narcotics for her migraines. She was last seen here in the emergency department 4 days ago for what she describes as her typical migraine. She received her IM Toradol, Phenergan and Dilaudid. Patient states that that helped for her headache, however subsequent to that she has begun to experience severe midline neck pain. She also complains of pain around her eye. She has tried ice for her neck pain. She has taken her scheduled gabapentin, Klonopin, 20 mg of oxycodone today, and is wearing her fentanyl patch. She states that she has been unable to get comfortable due to the pain in her neck. She states it is "different" from her chronic pain syndrome. She states that her facial pain around her eye is secondary to "trigeminal neuralgia." She rates her pain a 9/10. She denies any fever or chills. No nausea or vomiting. No numbness, tingling or weakness into the extremities. She reports she recently received an injection in the right knee. She has been seen by pain management who have recommended a second round of Botox to see if this will be efficacious against her migraines. Her narcotics are prescribed by her PCP. She has been seen by Dr. Wood of neurology in the past. REVIEW OF SYSTEMS: Review of systems as per HPI. All other systems reviewed were negative. 10 systems reviewed. PMH: Electronic medical records are reviewed and summarized as above/below. See Problem List. SOCIAL HISTORY: Patient lives at home. PHYSICAL EXAM: Vital Signs: Reviewed Nurse's notes. General Appearance: Patient is well appearing, slightly sedate 37-year-old white female who is awake and alert and in no apparent distress. There is occasional slurring of speech. Eyes: Pupils sluggish, equal round reactive to light, extraocular muscles are intact, no proptosis, no photophobia ENT: Oropharynx is clear, mucous membranes are moist, tympanic membranes are clear bilaterally, no sinus or dental tenderness tongue and uvula are midline. Neck: Supple, no cervical lymphadenopathy, no meningismus. She has a well- healed midline surgical scar. No erythema, increased warmth or induration. Full range of motion. Heart: Regular rate and rhythm, S1 and S2 Lungs: Clear to auscultation bilaterally, no wheezes Rales or rhonchi, no increased work of breathing Abdomen: Soft nontender nondistended. Normal active bowel sounds. No rebound. No guarding. Back: No midline tenderness to palpation. : No CVA tenderness to palpation. Skin: Warm, no diaphoresis, no rashes. Extremities: No cyanosis, clubbing, or edema Neurologic: Patient is awake alert, and oriented x 3. Cranial nerves 2-12 are grossly intact. Motor 5 out of 5 strength bilateral upper extremities and lower extremities. No gross sensory deficits. Reflexes are 2+ throughout. Antalgic gait due to knee pain. [id number]-[id number] and pkalpm-wp-[id number] testing is normal. EMERGENCY DEPARTMENT COURSE: The patient was seen and evaluated as above. Her old records are reviewed. She was reminded that the emergency Department is no longer providing narcotic injections for chronic pain related complaints. She says understanding of this. As she states that the pain she is experiencing today is atypical of her usual chronic pain syndrome, head and cervical spine CTs were obtained. She requested an ice pack and Toradol. She was given [address] scan findings were without acute pathology. I suspect the patient's pain is more related to her chronic syndrome, as opposed to acute intracranial bleed, C-spine injury, dural leak, meningitis or encephalitis. She moves well in the exam room otherwise and does not appear to be in any significant distress. She does appear slightly sedated, possibly overmedicated from her narcotics and benzos. She has a's family friend who is acting as her backhaul driver. 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 The patient rated her pain a 9/10 at discharge. Blood pressure screening : Patient was found to have normal blood pressure on screening and does not require follow-up. Medication reconciliation: I attest that I have personally reviewed the patient' s current medication list. CT OF THE CERVICAL SPINE WITHOUT CONTRAST CLINICAL HISTORY: Midline neck pain. COMPARISON STUDY: Cervical spine CT February 13, 2015. TECHNIQUE: Helical axial images of the cervical spine were obtained without IV contrast. Sagittal and coronal reconstructions were viewed. A dose lowering technique was utilized adhering to the principles of ALARA. FINDINGS: There are stable postoperative findings consistent with a suboccipital craniectomy. The craniocervical junction is intact. There is no acute cervical spine fracture or subluxation. There is no prevertebral edema. The central canal and neural foramen are suboptimally assessed by CT. Facet joints are intact. Disc spaces are preserved. IMPRESSION: 1. No acute cervical spine fracture or subluxation. 2. Stable postoperative findings consistent with suboccipital craniotomy. 3. No change in appearance of the cervical spine since exam of February 13, 2015. Suboptimal evaluation of the central canal and neural foramen given CT technique. CT OF THE HEAD WITHOUT CONTRAST CLINICAL HISTORY: Severe atypical headache. COMPARISON STUDY: Head CT February 07, 2017 and MRI of the brain September 02, 2016. CT DOSE: 690.05 mGycm TECHNIQUE: Helical axial images of the head were obtained without IV contrast. Automated exposure control was utilized for the study. A dose lowering technique was utilized adhering to the principles of ALARA. FINDINGS: No acute intracranial hemorrhage, midline shift or mass effect is present. Ventricular system is normal. There are stable postoperative findings consistent with a suboccipital craniectomy. Fullness at the level of the foramen magnum is unchanged. There are no findings to suggest acute dural sinus thrombosis or acute territorial infarct. There are no significant calvarial abnormalities. There is minimal mucosal thickening of the ethmoid sinuses. Mastoid air cells are clear. IMPRESSION: No acute intracranial findings. No change since previous exam. Problem List Medical Problems: (1) Blood clot Status: Chronic (2) Bronchitis Status: Chronic (3) Migraine Status: Chronic (4) Orthopedic surgery Status: Resolved (5) Pneumonia Status: Chronic Surgical Problems: (1) History of brain surgery Status: Resolved Current/Historical Medications Scheduled Aspirin (Aspirin), 81 MG PO QPM Azelastine Hcl (Astelin Nasal [place]), 2 SPRAYS NA BID Baclofen (Lioresal), 20 MG PO BID Cyanocobalamin (Vitamin B-12), 1,000 MCG PO QPM Fentanyl (Duragesic), 50 MCG TOP CQ72HR Fluticasone Propionate (Flovent Hfa), 2 PUFFS INH BID Folic Acid (Folvite), 1 MG PO HS Gabapentin (Neurontin), 600 MG PO TID Magnesium Oxide (Mag-Ox), 400 MG PO BID Omeprazole (Omeprazole), 20 MG PO BID Oxaprozin (Daypro), 600 MG PO BID Pyridoxine (Vitamin B6), 100 MG PO BID Silver Sulfadiazine (Silvadene), 1 APPLN TOP DAILY Scheduled PRN Albuterol Hfa (Ventolin Hfa), 2 PUFFS INH QID PRN for SOB/Wheezing Clonazepam (Klonopin), 0.5 MG PO BID PRN for Anxiety Hydroxyzine HCl (Hydroxyzine Pamoate), 25 MG PO QID PRN for Anxiety Melatonin (Melatonin), 5 MG PO HS PRN for Sleep Ondansetron Hcl (Zofran), 4 MG PO TID PRN for Nausea Oxycodone HCl (Oxycontin), 10 MG PO Q12 PRN for Pain Rizatriptan Benzoate (Rizatriptan Benzoate), 10 MG PO UD PRN for Migraine Sumatriptan Succinate (Imitrex Nasal [place]), 1 SPRAY NA UD PRN for Migraine Allergies Coded Allergies: Pregabalin (Verified Adverse Reaction, Intermediate, Vision changes., 06/15) Vital Signs Date Time Temp Pulse Resp B/P (MAP) Pulse Ox O2 Delivery O2 Flow Rate FiO2 07/20/17 16:25 80 18 130/82 98 07/20/17 15:18 88 18 127/89 96 Room Air 07/20/17 13:41 37.4 110 18 143/89 95 Room Air Medications Administered Medications (Trade) Dose Ordered Sig/Payton Route Start Time Stop Time Status Last Admin Dose Admin Ketorolac Tromethamine (Toradol Inj) 60 mg NOW STAT IM 07/20/17 14:17 07/20/17 14:18 DC 07/20/17 14:24 60 MG Departure Information Impression Primary Impression: Chronic neck pain Additional Impression: Facial pain Referrals Jayden Singleton, D.O. (PCP) Patient Instructions [facility] Additional Instructions Rest today in a quiet, peaceful, dark environment and get a full 8-10 hrs of sleep tonight. Avoid loud noises, smoke/smoking, alcohol, bright lights, stress, or physical exertion today to minimize the chance the headache may return. Continue current medications. Follow up with your doctors for a recheck of your current condition. Problem Qualifiers
[2017-07-20 16:25] VITALS: BP 130/82; PULSE 80; O2SAT 98
[2017-07-20] MEDS ORDERED: RIZA1TAB11 PO (17:42)
[2017-07-20] MEDS ORDERED: VST25HP PO (17:42)
[2017-07-20] MEDS ORDERED: IMTIN5 (19:01)
[2017-07-20] MEDS ORDERED: FNTTP50 TOP (19:01)
[2017-07-20] MEDS ORDERED: ASTN (19:01)
[2017-07-20] MEDS ORDERED: SILV1CRE73 TOP (19:01)
[2017-07-20] MEDS ORDERED: GABA600T PO (19:01)
[2017-07-20] MEDS ORDERED: OXYSR10 PO (19:01)
[2017-07-20] MEDS ORDERED: BACL20TA PO (19:53)
[2017-07-20] MEDS ORDERED: CLON0.5T3 PO (20:20)
[2017-07-20] MEDS ORDERED: ONDA4TAB65 PO (21:16)
[2017-07-20] MEDS ORDERED: OMEP20TA PO (21:16)
[2017-07-20] MEDS ORDERED: ASPI1TAB83 PO (21:16)
[2017-07-20] MEDS ORDERED: PYRI100T4 PO (22:20)
[2017-07-20] MEDS ORDERED: CYAN10005 PO (22:20)
[2017-07-20] MEDS ORDERED: MAGN400T5 PO (22:31)
== END 2017-07-20 16:26 | disposition home or self-care (01) ==
LOC: C.EDB 13:39 → C.EDD 16:26
DX: M54.2 Cervicalgia (principal); R51 Headache; G89.4 Chronic pain syndrome; F41.9 Anxiety disorder, unspecified; F32.9 Major depressive disorder, single episode, unspecified; F11.20 Opioid dependence, uncomplicated; Z87.01 Personal history of pneumonia (recurrent); Z79.82 Long term (current) use of aspirin; Z79.899 Other long term (current) drug therapy

== ENCOUNTER 2017-10-26 09:10 | Emergency (ER) | payer OTHER ==
[~2017-10-26] VITALS: Ht 162.6 cm; Wt 93.0 kg
[~2017-10-26 09:10] MED LIST changes: +ASPI1TAB83 PO; +ASTN; +BACL20TA PO; +CLON0.5T3 PO; +CYAN10005 PO; +FNTTP50 TOP; +FOLI1TAB8 PO; +GABA600T PO; +IMTIN5; +MAGN400T5 PO; +MELA5CAP PO; +OMEP20TA PO; +ONDA4TAB65 PO; +OXYSR10 PO; +PYRI100T4 PO; +RIZA1TAB11 PO; +VST25HP PO
[2017-10-26 09:14] VITALS: BP 129/86; PULSE 103; TEMP 36.5; O2SAT 100; Ht 162.6 cm; Wt 93.0 kg
--- NOTE | 2017-10-26 09:38 | EMERGENCY ROOM VISIT NOTE ---
History Report prepared by Jerry: Abdi Rooney Under the Supervision of: Dr. Shyam Godoy D.O. First contact with patient: 09:28 Chief Complaint: OTHER COMPLAINT Stated Complaint: REACTION TO BOTOX SHOTS, DON NECK AND SHOULDERS History of Present Illness The patient is a 37 year old female with a history of neck difficulties who presents to the Emergency Room with complaints of worsening neck pain that started a week ago after having Botox injections. She states that she has a history of chronic migraines, and had decompression surgery in February, and started doing Botox injections. The patient says that she had a second round of Botox injections a week ago, but it was done a bit differently than her first time, and the injections were more in her back and neck. She notes that ever since the second round of injections, she has had worsening pain in the back of her neck, as well as both her shoulders and down her arms. The patient says that the worst pain is around where she had the injections. She notes that the areas feel and look swollen as well, including her hands. The patient adds that she has had a slight headache. She called the pain clinic that did her injections this morning, and was told that this was not normal was told to come here. The patient says that she is not on any blood thinners. She adds that she is taking Baclofen and Klonopin. She has a history of Spina Bifida and Chiari malformation. Source of History: patient Onset: A week ago Position: neck Symptom Intensity: cannot take pain so had to come here Quality: other (after having Botox injections) Timing: worsening Associated Symptoms: + headache Note: Associated symptoms: Bilateral shoulder and arm pain. Swelling in neck, arms, and hands. Review of Systems See HPI for pertinent positives & negatives. A total of 10 systems reviewed and were otherwise negative. Past Medical & Surgical Medical Problems: (1) Blood clot (2) Bronchitis (3) Cervical cancer (4) Cervicalgia (5) GERD (gastroesophageal reflux disease) (6) Migraine (7) Orthopedic surgery (8) Pneumonia (9) Spina bifida Surgical Problems: (1) History of brain surgery Family History Diabetes mellitus Hypertension Kidney disease/stones Social History Smoking Status: Current Every Day Smoker Alcohol Use: none Drug Use: none Marital Status: single Housing Status: lives with family Occupation Status: disabled Current/Historical Medications Scheduled Aspirin (Aspirin), 81 MG PO QPM Azelastine Hcl (Astelin Nasal [place]), 2 SPRAYS NA BID Baclofen (Lioresal), 20 MG PO BID Cyanocobalamin (Vitamin B-12), 1,000 MCG PO QPM Fentanyl (Duragesic), 50 MCG TOP CQ72HR Fluticasone Propionate (Flovent Hfa), 2 PUFFS INH BID Folic Acid (Folvite), 1 MG PO HS Gabapentin (Neurontin), 600 MG PO TID Magnesium Oxide (Mag-Ox), 400 MG PO BID Omeprazole (Omeprazole), 20 MG PO BID Oxaprozin (Daypro), 600 MG PO BID Pyridoxine (Vitamin B6), 100 MG PO BID Scheduled PRN Albuterol Hfa (Ventolin Hfa), 2 PUFFS INH QID PRN for SOB/Wheezing Clonazepam (Klonopin), 0.5 MG PO BID PRN for Anxiety Hydroxyzine HCl (Hydroxyzine Pamoate), 25 MG PO QID PRN for Anxiety Melatonin (Melatonin), 5 MG PO HS PRN for Sleep Ondansetron Hcl (Zofran), 4 MG PO TID PRN for Nausea Oxycodone HCl (Oxycontin), 10 MG PO Q12 PRN for Pain Rizatriptan Benzoate (Rizatriptan Benzoate), 10 MG PO UD PRN for Migraine Sumatriptan Succinate (Imitrex Nasal [place]), 1 SPRAY NA UD PRN for Migraine Allergies Coded Allergies: Pregabalin (Verified Adverse Reaction, Intermediate, Vision changes., 10/26) Physical Exam Vital Signs Date Time Temp Pulse Resp B/P (MAP) Pulse Ox O2 Delivery O2 Flow Rate FiO2 10/26/17 09:14 36.5 103 18 129/86 100 Physical Exam GENERAL: Patient is awake, alert, and in no acute distress. Patient is resting comfortably and showing no signs of anxiety EYES: The conjunctivae are clear. The pupils are round and reactive. EARS, NOSE, MOUTH AND THROAT: The nose is without any evidence of any deformity. Mucous membranes are moist tongue is midline NECK: Diffuse tenderness in the cervical spine, no swelling or erythema appreciated. RESPIRATORY: Normal respiratory effort is noted there is no evidence of wheezing rhonchi or rales CARDIOVASCULAR: Regular rate and rhythm noted there no murmurs rubs or gallops normal S1 normal S2 GASTROINTESTINAL: The abdomen is soft. Bowel sounds are present in all quadrants. Abdomen is nontender BACK: No midline tenderness or or step-off noted range of motion in flexion extension as well as rotation no signs of muscle spasm noted MUSCULOSKELETAL/EXTREMITIES: There is no edema in the upper extremities. Pulses are symmetric in the upper extremities. SKIN: There is no obvious evidence of any rash. There are no petechiae, pallor or cyanosis noted. NEUROLOGIC: Patient is awake alert and oriented x3 strength is symmetric patellar reflexes are 2+ bilaterally Medical Decision & Procedures Medications Administered Medications (Trade) Dose Ordered Sig/Payton Route Start Time Stop Time Status Last Admin Dose Admin Promethazine HCl (Phenergan Inj) 25 mg NOW STAT IM 10/26/17 10:04 10/26/17 10:06 DC 10/26/17 10:26 25 MG Diphenhydramine HCl (Benadryl Inj) 25 mg NOW STAT IM 10/26/17 10:04 10/26/17 10:06 DC 10/26/17 10:26 25 MG ED Course 0929: The patient was evaluated in room A4B. A complete history and physical examination were performed. 0951: I discussed the patient with Melania Arboleda PA-C [facility]. 1004: Ordered Benadryl Inj 25 mg IM, Phenergan Inj 25 mg IM. 1100: Upon reevaluation, the patient is resting. I discussed the results and treatment plan with her. She verbalized agreement of the treatment plan. She will be discharged home. Medical Decision Differential diagnosis: Etiologies such as migraine headache, meningitis, sinusitis, CO exposure, ICH, SAH, infection, tumor, headache, sinus thrombosis, arterial dissection, as well as others were entertained. Nursing notes reviewed. The patient is a 37-year-old female who presented to the emergency department for headache and neck pain. The patient recently was seen at the pain clinic and had injections for chronic headaches. The patient complained of neck pain with right upper extremity pain. I discussed her presentation with the pain clinic. It would appear that this neck pain is a common complication of this injection procedure. Certainly she has no focal neurologic deficit. She has no meningismus or fever. She was treated with pain medication in the emergency department. She was offered an appointment with the pain clinic today but the patient came to the emergency department instead. The patient was encouraged to rest and avoid any strenuous activity. She was also encouraged to follow-up with the pain clinic as well as her primary care physician as soon as possible. Otherwise she was encouraged to return to the emergency Department immediately if symptoms change worsen or the need arises. If the patient's symptoms were to change or these current symptoms persist longer than would be expected I would recommend neuro imaging and I discussed this with the pain clinic as well as the patient. Medication Reconcilliation Current Medication List: was personally reviewed by me Blood Pressure Screening Patient's blood pressure: Normal blood pressure Consults Time Called: [phone] Consulting Physician: [facility] Returned Call: [phone] I discussed the patient with [facility]. Impression Primary Impression: Headache Additional Impression: Chronic neck pain Scribe Attestation The scribe's documentation has been prepared under my direction and personally reviewed by me in its entirety. I confirm that the note above accurately reflects all work, treatment, procedures, and medical decision making performed by me. Departure Information Dispostion Home / Self-Care Referrals No Doctor, Assigned (PCP) Jayden Singleton, D.O. Patient Instructions Cervical Strain, ED Cervical Radiculopathy, My [facility] Additional Instructions Follow-up with the pain clinic as soon as possible. Continue all medications as prescribed. Rest and avoid any straining secondary. Problem Qualifiers Primary Impression: Headache Headache type: unspecified Headache chronicity pattern: unspecified pattern Intractability: not intractable Qualified Codes: R51 - Headache
[2017-10-26] MEDS ORDERED: DiphenhydrAMINE HCL 50 MG/ML VIAL IM STA (10:04)
[2017-10-26] MEDS ORDERED: PROMETHAZINE HCL INJ 25 MG/ML 1 ML VIAL IM STA (10:04)
[2017-10-26] MEDS ORDERED: DEXAMETHASONE SOD INJ 4 MG/ML VIAL IM STA (11:05)
[2017-10-26] MEDS ORDERED: KETOROLAC TROMETHAMINE 60 MG/2 ML VIAL IM STA (11:05)
== END 2017-10-26 11:47 | disposition home or self-care (01) ==
LOC: C.EDB 09:11 → C.EDA 11:47
DX: G43.709 Chronic migraine without aura, not intractable, without status migrainosus (principal); M54.2 Cervicalgia; G89.29 Other chronic pain; T48.295A Adverse effect of other drugs acting on muscles, initial encounter; Q07.01 Arnold-Chiari syndrome with spina bifida; Z98.890 Other specified postprocedural states; F17.200 Nicotine dependence, unspecified, uncomplicated; Z79.82 Long term (current) use of aspirin; Z79.891 Long term (current) use of opiate analgesic; Z79.51 Long term (current) use of inhaled steroids; Z79.1 Long term (current) use of non-steroidal anti-inflammatories (NSAID); Z83.3 Family history of diabetes mellitus; Z82.49 Family history of ischemic heart disease and other diseases of the circulatory system; Z84.1 Family history of disorders of kidney and ureter

== ENCOUNTER 2022-02-27 19:23 | Observation (INO) ==
[2022-02-27] MEDS ORDERED: HYDROmorphone INJ 0.5 MG/0.5 ML SYR IV STA ×2 (19:55→22:13)
[2022-02-27] MEDS ORDERED: SODIUM CHLORIDE 0.9% 1000ML 1,000 ML IV STA (19:55)
[2022-02-27] MEDS ORDERED: FAMOTIDINE 20MG IV PUSH 20 MG/5 ML SYR IV STA (19:55)
[2022-02-27] MEDS ORDERED: PANTOprazole 80 MG in DEXTROSE 5% 100 ML IV STA (19:55)
[2022-02-27] MEDS ORDERED: ONDANSETRON INJ 2 MG/ML 2 ML VIAL IV STA (19:55)
--- NOTE | 2022-02-27 20:21 | Emergency Department Note ---
Impression & Plan Nausea & vomiting, Abdominal pain, Hematemesis/vomiting blood ED Provider Note Provider: Mohan Hawkins MD DATE OF SERVICE: 02/27/2022 CHIEF COMPLAINT: Right-sided abdominal pain and vomiting blood HISTORY OF PRESENT ILLNESS: Patient is a 41-year-old female history of cholecystectomy presenting today for reevaluation of some right-sided abdominal pain. Patient was seen in the emergency department yesterday with blood work and imaging. She states she has followed in the past with gastroenterology and had a scope in August that was reassuring. States she intermittently gets some pain in the right side of her abdomen. She states it feels like it is bulging some is been having nausea and vomiting and states she been vomiting some blood. Denies diarrhea and no bloody bowel movements reported. No trauma reported. Denies fever. States he is unable to tolerate oral intake including taking her home Zofran today. Patient was seen yesterday with reassuring blood work and imaging and sent home. Patient denies significant chest pain or shortness of breath. Patient states again she has had episodes like this before and thinks this may be related to overdoing or mowing her lawn on Tuesday due to the high grass. REVIEW OF SYSTEMS: A total of 10 review of systems was obtained and negative except as stated above in the HPI. PAST MEDICAL HISTORY: As noted above MEDICATIONS: Reviewed home medications list which includes chronic narcotics SOCIAL HISTORY: Smoker, denies alcohol use PHYSICAL EXAM: GENERAL: alert and oriented in no acute distress on stretcher appears un comfortable Head: normocephalic and atraumatic EYES: No injection, discharge or icterus. NECK: Trachea midline. Supple. ENT: Mucous membranes pink and moist. LUNGS: Airway patent. No retractions. Breath sounds clear with good air entry bilaterally. HEART: Regular rate and rhythm. No chest wall tenderness ABDOMEN: Soft with mild right-sided abdominal tenderness but no obvious hernia. Well-healed prior laparoscopy port sites. No rashes noted SKIN: Acyanotic, warm, dry, without rashes EXTREMITIES: Without swelling, tenderness or deformity NEUROLOGICAL: No focal deficits. No aphasia. No facial droop or slurred speech. Ambulatory. EK bpm normal sinus rhythm. No PVC or PAC. No acute ST segment elevation or depression. QTC 432 CONTINUOUS CARDIAC MONITORING: was ordered and showed a heart rate of 80s-90s bpm in normal sinus rhythm PDMP was checked without noted issue. Patient's laboratory studies and imaging reviewed. Differential includes Appendicitis, ovarian cyst, ovarian torsion, ectopic , TOA, PID, infections, diverticulitis, UTI, obstruction, mesenteric ischemia, aortic pathology, inflammatory bowel disease, renal colic, PUD, pancreatitis, biliary pathology, hernia, volvulus, constipation, as well as other pathologies. IMPRESSION/MEDICAL DECISION MAKING: It medical record and labs and imaging results from yesterday. Notable only for mild leukocytosis but no anemia and reassuring liver functions and lipase. EKG and troponin completed able lower suspicion for ACS. Just had a CT scan yesterday that was reassuring and tentatively believe repeat today would be that beneficial. Still some mild right-sided abdominal tenderness. Question this is more of a gastritis situation. Given Protonix and Pepcid here as well as Zofran and symptomatic pain control. Given some IV fluid. Patient relays EGD in August without significant findings per her report. This is more than 6 months ago and now with some reports of vomiting blood. Question of gastritis versus gastric ulceration situation. Lower abdominal tenderness on exam. Blood work here with stable renal function and no concerning findings for hepatic dysfunction or pancreatitis. Negative . Blood work without anemia. Slight leukocytosis persist of 13.6 today slightly higher than 12 yesterday.This is likely more reactive. Reassured there is no large hemoglobin drop. Patient on reassessment still not tolerating oral intake complaining of continued nausea and pain. Given a small amount of additional Dilaudid given some Reglan states may help with her symptoms. Discussed that given her presentation and lack of improvement further care and GI evaluation here is r ecommended. Hospitalist contacted. DIAGNOSIS: Abdominal pain, nausea and vomiting, hematemesis DISPOSITION: Hospitalist will evaluate Patient was agreeable with this plan. Past Med/Surg History Medical History (Updated 02/27/22 @ 22:42 by Mohan Hawkins M.D.) History of Chiari malformation Migraine Spina bifida Trigeminal neuralgia of right side of face Surgical History (Updated 02/26/22 @ 23:47 by Suman Boyer MD) Hx of cholecystectomy Social History Smoking Status: Current every day smoker Tobacco Type: Cigarettes Preferred Language: Urdu Feels Safe at Home: Yes Allergies Allergies Allergy/AdvReac Type Severity Reaction Status Date / Time pregabalin AdvReac Intermediate Vision Verified 02/27/22 19:46 changes. Home Meds Home Medications Medication Instructions Recorded Confirmed gabapentin 600 mg tablet 600 mg PO TID 12/04/18 02/27/22 magnesium oxide 400 mg PO BID 12/04/18 02/27/22 omeprazole 20 mg capsule,delayed 20 mg PO BID PRN 12/04/18 02/27/22 release ondansetron 4 mg disintegrating 4 mg TRANSLINGUAL TID PRN 12/04/18 02/27/22 tablet oxycodone 10 mg tablet 10 mg PO DAILY PRN 12/04/18 02/27/22 pyridoxine (vitamin B6) 100 mg 100 mg PO BID 12/04/18 02/27/22 tablet rizatriptan 10 mg disintegrating 10 mg TRANSLINGUAL DIRECTED PRN 12/04/18 02/27/22 tablet galcanezumab-gnlm 120 mg/mL 1 dose SUBCUT MONTHLY 01/08/19 02/27/22 subcutaneous syringe (Emgality) sumatriptan 20 mg/actuation nasal 1 spray INTRANASAL UD 01/08/19 02/27/22 spray (Imitrex) oxcarbazepine 150 mg tablet 150 mg PO BID 07/07/19 02/27/22 (Trileptal) oxycodone 20 mg tablet,crush 20 mg PO BID 07/07/19 02/27/22 resistant,extended release 12 hr (OxyContin) cyanocobalamin (vitamin B-12) 1,000 mcg PO DAILY 12/03/20 02/27/22 1,000 mcg tablet folic acid 1 mg tablet 1 mg PO BID 12/03/20 02/27/22 Results & Data (ED) Vital Signs Vital Signs - 24 hr 02/27/22 19:26 Temperature 36.9 C Temperature Source Temporal Artery Scan Pulse Rate 89 Pulse Rhythm Regular Pulse Strength Normal Respiratory Rate 18 Respiratory Effort / Characteristics Non-Labored Spontaneous Respiratory Depth Normal Respiratory Pattern Regular Blood Pressure 160/117 H Blood Pressure Mean 131 Blood Pressure Position Sitting Pulse Oximetry 99 Oxygen Delivery Method Room Air Sepsis Recent Fever Within 48 Hours No Sepsis New/Unexplained Change in Mental Status No Sepsis Action Taken by Nursing No Action Required Laboratory Data Result diagrams: 02/27/22 21:10 02/27/22 21:10 Lab Results 02/27/22 02/27/22 02/27/22 Range/Units 21:10 21:10 21:10 WBC 13.61 H (4.8-10.8) K/uL RBC 4.59 (4.2-5.4) M/uL Hgb 14.5 (12.0-16.0) g/dL Hct 42.2 (37-47) % MCV 91.9 (80-100) fL MCH 31.6 (25-34) pg MCHC 34.4 (32-36) g/dL RDW Std Deviation 47.3 H (36.4-46.3) fL RDW Coeff of Gabriel 14.1 (11.5-14.5) % Plt Count 313 (130-400) K/uL MPV 10.5 H (7.4-10.4) fL Immature Gran % (Auto) 0.3 % Neut % (Auto) 71.3 % Lymph % (Auto) 17.5 % [place] % (Auto) 8.3 % Eos % (Auto) 2.5 % Baso % (Auto) 0.1 % Neut # (Auto) 9.70 H (1.4-6.5) K/uL Lymph # (Auto) 2.38 (1.2-3.4) K/uL [place] # (Auto) 1.13 H (0.11-0.59) K/uL Eos # (Auto) 0.34 (0-0.5) K/uL Baso # (Auto) 0.02 (0-0.2) K/uL Immature Gran # (Auto) 0.04 H (0.00-0.02) K/uL Sodium 140 (136-145) mmol/L Potassium 3.3 L (3.5-5.1) mmol/L Chloride 105 (98-107) mmol/L Carbon Dioxide 25 (21-32) mmol/L Anion Gap 10 (3-11) BUN 8 (6-23) mg/dl Creatinine 0.72 (0.6-1.2) mg/dl Est Cr Clr Drug Dosing 107.8 ml/min Est GFR ( Amer) 120.6 ml/min Est GFR (Non-Af Amer) 104.0 ml/min BUN/Creatinine Ratio 11.1 (10-20) Glucose 92 (70-99(Fasting)) mg/dl Calcium 9.5 (8.5-10.1) mg/dl Total Bilirubin 0.9 (0.2-1.0) mg/dl AST 12 L (13-39) U/L ALT 11 (7-52) U/L Alkaline Phosphatase 125 H (34-104) U/L Troponin I High Sens 5.3 (0-14) pg/ml Total Protein 7.0 (6.0-8.3) gm/dl Albumin 4.3 (3.4-5.0) gm/dl Globulin 2.7 (2.5-4.0) gm/dl Albumin/Globulin Ratio 1.6 (0.9-2) Lipase 17 (11-82) U/L HCG, Qual Negative (Negative) Administered Medications Discontinued Medications Hydromorphone HCl (Hydromorphone Inj 0.5 Mg/0.5 Ml Syr) 1 mg IV NOW STA Stop: 02/27/22 19:56 Last Admin: 02/27/22 21:20 Dose: 1 mg Documented by: [id number] Hydromorphone HCl (Hydromorphone Inj 0.5 Mg/0.5 Ml Syr) 0.5 mg IV NOW STA Stop: 02/27/22 22:14 Last Admin: 02/27/22 22:38 Dose: 0.5 mg Documented by: [id number] Sodium Chloride (Nss 1000ml) 1,000 mls @ 999 mls/hr IV .Q1H1M STA Stop: 02/27/22 20:55 Last Admin: 02/27/22 21:22 Dose: 999 mls/hr Documented by: [id number] Famotidine (Pepcid 20mg Iv Push) 20 mg in 5 mls @ 2.5 mls/min IV NOW STA Stop: 02/27/22 19:56 Last Admin: 02/27/22 21:21 Dose: 2.5 mls/min Documented by: [id number] Pantoprazole Sodium 80 mg/ (Dextrose) 100 mls @ 400 mls/hr IV ONE STA Stop: 02/27/22 20:09 Last Admin: 02/27/22 21:26 Dose: 400 mls/hr Documented by: [id number] Metoclopramide HCl (Metoclopramide Hcl Inj 5 Mg/Ml 2 Ml Vial) 10 mg IV NOW STA Stop: 02/27/22 22:14 Last Admin: 02/27/22 22:38 Dose: 10 mg Documented by: [id number] Ondansetron HCl (Ondansetron Inj 2 Mg/Ml 2 Ml Vial) 4 mg IV NOW STA Stop: 02/27/22 19:56 Last Admin: 02/27/22 21:21 Dose: 4 mg Documented by: [id number] Discharge Plan Visit Data Chief Complaint: Abdominal Pain Stated Complaint: VOMITING BLOOD, LRQ ABDOMINAL PAIN ED Provider: Mohan Hawkins Discharge Problem: Nausea & vomiting, Abdominal pain, Hematemesis/vomiting blood Patient Disposition: Being Evaluated by Hospitalist Forms Stand Alone Forms: [facility] Prescriptions Prescriptions: No Action sumatriptan [Imitrex] 20 mg/actuation spray,non-aerosol 1 spray intranasal UD RF: 0 Emgality Syringe 120 mg/mL Syringe 1 dose SUBCUT MONTHLY RF: 0 cyanocobalamin (vitamin B-12) 1,000 mcg tablet 1,000 mcg PO DAILY RF: 0 folic acid 1 mg tablet 1 mg PO BID RF: 0 gabapentin 600 mg tablet 600 mg PO TID RF: 0 rizatriptan 10 mg tablet,disintegrating 10 mg Translingual DIRECTED PRN (Reason: Migraine Headache) RF: 0 omeprazole 20 mg capsule,delayed release(DR/EC) 20 mg PO BID PRN (Reason: Acid Reflux) RF: 0 pyridoxine (vitamin B6) [Vitamin B-6] 100 mg tablet 100 mg PO BID RF: 0 ondansetron 4 mg tablet,disintegrating 4 mg Translingual TID PRN (Reason: Nausea) RF: 0 oxycodone 10 mg tablet 10 mg PO DAILY PRN (Reason: Pain) RF: 0 magnesium oxide 400 mg magnesium Tablet 400 mg PO BID RF: 0 oxcarbazepine [Trileptal] 150 mg Tablet 150 mg PO BID RF: 0 oxycodone [OxyContin] 20 mg Tablet,Oral Only,Ext.Rel.12 Hr 20 mg PO BID RF: 0 Referrals Referrals: Jayden Singleton DO [Primary Care Provider] - Discharge Problem: Nausea & vomiting Qualifiers: Vomiting type: unspecified Qualified Code(s): R11.2 - Nausea with vomiting, unspecified Abdominal pain Qualifiers: Abdominal location: right upper quadrant Qualified Code(s): R10.11 - Right upper quadrant pain Hematemesis/vomiting blood Qualifiers: Nausea presence: with nausea Qualified Code(s): K92.0 - Hematemesis
[2022-02-27 21:48] LABS: Pregnancy Test, Serum Negative (Negative)
[2022-02-27 21:58] LABS: Albumin Globulin Ratio 1.6 (0.9-2); Albumin Level 4.3 gm/dl (3.4-5.0); BUN Creatinine Ratio 11.1 (10-20); Bilirubin,Total 0.9 mg/dl (0.2-1.0); Calcium 9.5 mg/dl (8.5-10.1); Creatinine Clr Calc Pharmacy 107.8 ml/min; Est GFR (African American) 120.6 ml/min; Globulin 2.7 gm/dl (2.5-4.0); Potassium 3.3 mmol/L (3.5-5.1)
[2022-02-27 21:59] LABS: Troponin I High Sensitivity 5.3 pg/ml (0-14)
[2022-02-27] MEDS ORDERED: METOCLOPRAMIDE HCL INJ 5 MG/ML 2 ML VIAL IV STA (22:13)
[2022-02-27 22:28] LABS: Basophils # (auto) 0.02 K/uL (0-0.2); Basophils % (auto) 0.1 %; Eosinophils # (auto) 0.34 K/uL (0-0.5); Eosinophils % (auto) 2.5 %; Hematocrit (blood only) 42.2 % (37-47); Hemoglobin 14.5 g/dL (12.0-16.0); Immature Granulocytes # (auto) 0.04 K/uL (0.00-0.02); Immature Granulocytes % (auto) 0.3 %; Lymphocytes # (auto) 2.38 K/uL (1.2-3.4); Lymphocytes % (auto) 17.5 %; Mean Corpuscular Hemoglobin 31.6 pg (25-34); Mean Corpuscular Hgb Conc 34.4 g/dL (32-36); Mean Corpuscular Volume 91.9 fL (80-100); Mean Platelet Volume 10.5 fL (7.4-10.4); Monocytes # (auto) 1.13 K/uL (0.11-0.59); Monocytes % (auto) 8.3 %; Neutrophils % (auto) 71.3 %; Platelet Count 313 K/uL (130-400); RDW Coefficient of Variation 14.1 % (11.5-14.5); RDW Standard Deviation 47.3 fL (36.4-46.3); Red Blood Count 4.59 M/uL (4.2-5.4); White Blood Count 13.61 K/uL (4.8-10.8)
[2022-02-28] MEDS ORDERED: oxyCODONE HCL IR 5 MG TAB (IMMEDIATE RELEASE) PO PRN (02:23)
[2022-02-28] MEDS ORDERED: NITROGLYCERIN SL 0.4 MG/TAB TAB SL PRN (02:23)
[2022-02-28] MEDS ORDERED: ACETAMINOPHEN 325 MG TAB PO PRN (02:23)
--- NOTE | 2022-02-28 03:13 | History and Physical Report ---
DATE OF ADMISSION: 02/27/2022. CHIEF COMPLAINT: Abdominal pain. HISTORY OF PRESENT ILLNESS: A 41-year-old female with past medical history significant for MTHFR gene mutation, mild persistent asthma, GERD without esophagitis, polyarthritis, spina bifida of cervical region with hydrocephalus, uncomplicated opioid dependence, history of intractable migraine, trigeminal neuralgia, tobacco use disorder, history of Chiari malformation. The patient presents with abdominal pain. Complains of right sided abdominal pain going on for last few days since last . It happened while she was at home mowing the grass. The patient says she had a gallbladder taken out 2 years ago. Whenever she exerts herself, she gets abdominal pain. She was in the ER yesterday and she had some hematemesis. She was discharged to follow as outpatient, but she comes back as the pain is not getting better. Complains of some hematemesis but hemoglobin is stable at 14.5. Hemodynamically stable. Her lipase level is okay. She had a CT of abdomen and pelvis yesterday and it was unremarkable except for some constipation. Currently, resting comfortably. Denies any fevers or chills. Denies any chest pain, no shortness of breath. Has some sore throat from vomiting. She says she had hematemesis couple of timestoday, few times yesterday. Denies any headache. No blurred visions, no earache, no runny nose. Normal bowel and bladder movements. Denies any blood in stool or black stools, no hematuria, no swelling in the legs. Ambulating okay. ALLERGIES: PREGABALIN. PAST MEDICAL HISTORY: As mentioned above. PAST SURGICAL HISTORY: EGDs, bilateral knee arthroscopy, laparoscopic cholecystectomy, ligation of oviducts, Chiari decompression in 2007. MEDICATIONS: The patient is on vitamin B12 1000 mcg p.o. daily, folic acid 1 mg p.o. b.i.d., gabapentin 600 mg p.o. b.i.d., emgality subcutaneous monthly, magnesium oxide 400 mg p.o. b.i.d., omeprazole 20 mg p.o. b.i.d. p.r.n., Zofran 4 mg t.i.d. p.r.n., Trileptal 150 mg p.o. b.i.d., oxycodone 10 mg p.o. daily p.r.n., OxyContin 20 mg p.o. b.i.d., vitamin B6 100 mg p.o. b.i.d., rizatriptan 10 mg sublingual p.r.n. FAMILY HISTORY: Significant for father has diabetes, hypertension; mother has knee problems, hypertension, diabetes. Maternal grandmother has diabetes. Maternal grandfather had lung cancer as a minor. Maternal grandmother has pancreatic cancer. Maternal grandfather has rheumatoid arthritis. SOCIAL HISTORY: Single, smokes half pack a day for last 20 years. Currently, no alcohol, no drug use. REVIEW OF SYSTEMS: As per HPI. Rest of review of systems is negative. PHYSICAL EXAMINATION: GENERAL: The patient is of moderate build, not in acute distress. VITAL SIGNS: Temperature 36.9, pulse 89, respiratory rate 18, blood pressure 160/117, oxygen 99% on room air. HEENT: Pupils equal, round and reactive to light. Oral mucosa moist. NECK: No JVD. No neck masses. CARDIOVASCULAR: S1 and S2 heard. Regular rate and rhythm. No murmur, no gallop. RESPIRATORY SYSTEM: Normal AP diameter. No accessory muscle use. No wheezing, no crackles. ABDOMEN: Soft, bowel sounds present. Right-sided abdominal tenderness present. Mild guarding, no rigidity, no distention. CENTRAL NERVOUS SYSTEM: Cranial nerves II-XII grossly intact, nonfocal. EXTREMITIES: No edema, no erythema. LABORATORY DATA: WBC 13.6, hemoglobin 14.5, hematocrit 42.2, platelets 313. Sodium 140, potassium 3.3, chloride 105, bicarbonate 25, BUN 8, creatinine 0.7, serum glucose 92, calcium 9.5, total bilirubin 0.2, AST 12, ALT 11, alkaline phosphatase 125. Troponin-1 high sensitivity 5.3, lipase 17. HCG qualitative negative. EKG: Normal sinus rhythm at a rate of 74, no significant change was found. ASSESSMENT AND PLAN: This is a 41-year-old female presents with persistent abdominal pain, nausea with hematemesis. 1. Abdominal pain, nausea, vomiting and the patient says she has hematemesis. Hemoglobin is stable, possible gastritis. We will place her on Protonix drip. H and H q. 6 hours. N.p.o., IV fluids. Consult GI in the a.m. for further recommendations. 2. Chronic pain. Continue home pain medications. 3. Migraine, currently stable. 4. Tobacco abuse. Needs counseling. 5. Deep venous thrombosis prophylaxis: Sequential compression devices for now. DISPOSITION: Closely monitor in the med tele. PT/OT prior to discharge. Social service to help with discharge planning. Job ID: [id number] [facility]ITALTr[facility]
[2022-02-28] MEDS: HYDROmorphone INJ 0.5 MG/0.5 ML SYR IV PRN ×4 (03:15→13:52)
[2022-02-28] MEDS: ONDANSETRON INJ 2 MG/ML 2 ML VIAL IV PRN ×2 (03:24→13:52)
[2022-02-28] MEDS ORDERED: RIZATRIPTAN BENZOATE MLT 10 MG TAB PO PRN (03:51)
[2022-02-28] MEDS: D5W AND 1/2NSS 1,000 ML IV SCH ×2 (03:51→14:21)
[2022-02-28] MEDS: PANTOprazole 40 MG in DEXTROSE 5% 100 ML IV SCH ×2 (03:52→09:02)
[2022-02-28 05:54] LABS: Basophils # (auto) 0.02 K/uL (0-0.2); Basophils % (auto) 0.2 %; Eosinophils # (auto) 0.44 K/uL (0-0.5); Eosinophils % (auto) 4.3 %; Hematocrit (blood only) 39.2 % (37-47); Hemoglobin 12.9 g/dL (12.0-16.0); Immature Granulocytes # (auto) 0.03 K/uL (0.00-0.02); Immature Granulocytes % (auto) 0.3 %; Lymphocytes # (auto) 2.88 K/uL (1.2-3.4); Lymphocytes % (auto) 28.3 %; Mean Corpuscular Hemoglobin 30.4 pg (25-34); Mean Corpuscular Hgb Conc 32.9 g/dL (32-36); Mean Corpuscular Volume 92.2 fL (80-100); Monocytes # (auto) 0.89 K/uL (0.11-0.59); Monocytes % (auto) 8.8 %; Neutrophils % (auto) 58.1 %; Platelet Count 267 K/uL (130-400); RDW Standard Deviation 47.6 fL (36.4-46.3); Red Blood Count 4.25 M/uL (4.2-5.4); White Blood Count 10.16 K/uL (4.8-10.8)
[2022-02-28 06:17] LABS: BUN Creatinine Ratio 10.3 (10-20); Calcium 8.9 mg/dl (8.5-10.1); Creatinine Clr Calc Pharmacy 99.9 ml/min; Est GFR (African American) 109.4 ml/min; Est GFR (Non-African American) 94.4 ml/min; Magnesium 1.6 mg/dl (1.7-2.4); Potassium 3.1 mmol/L (3.5-5.1)
[2022-02-28] MEDS: GABAPENTIN 600 MG TAB PO SCH ×2 (07:32→14:27)
--- NOTE | 2022-02-28 08:47 | Hospitalist Progress Note ---
Date of Service February 28, 2022 Assessment & Plan Admission and Anticipated Discharge Date Admission Date: February 28, 2022 Subjective Notified by nursing staff that patient wants to leave AMA Patient was seen by PILAR Saldaña this morning, however she tells me that she did not feel she understood the plan. She is very upset about her IVs and that GoLytely was ordered for her. She reports that she still has abdominal pain. Reports that she had BM at home, and that she "can do this at home by herself and does not have to be here, listening to beeping IVs." She then tells me that she does not want to answer any more of my questions and rips her IVs off. She grabbed her cloths and said that she was leaving. Nursing staff notified immediately. I also contacted patient's mother, who called the hospital earlier. Patient's mother states that this is not the first time for the patient to leave the hospital like this, and that she will try to call the pt and persuade her to stay in the hospital. MD Ted Results & Data Results & Data ([facility]) Vital Signs (Past 12 Hours) Vital Signs Temp Pulse Pulse Pulse Resp BP BP 02/28/22 06:43 36.8 C 71 20 156/92 H 02/28/22 04:33 79 02/28/22 04:05 36.7 C 76 18 155/101 H 02/28/22 02:04 86 18 134/82 02/27/22 21:24 82 18 142/82 H Pulse Ox 02/28/22 06:43 97 02/28/22 04:33 02/28/22 04:05 98 02/28/22 02:04 98 02/27/22 21:24 99 Laboratory Results 02/28/22 02/28/22 02/28/22 Range/Units 05:16 05:16 00:10 WBC 10.16 (4.8-10.8) K/uL RBC 4.25 (4.2-5.4) M/uL Hgb 12.9 (12.0-16.0) g/dL Hct 39.2 (37-47) % MCV 92.2 (80-100) fL MCH 30.4 (25-34) pg MCHC 32.9 (32-36) g/dL RDW Std Deviation 47.6 H (36.4-46.3) fL RDW Coeff of Gabriel 14.0 (11.5-14.5) % Plt Count 267 (130-400) K/uL MPV 10.0 (7.4-10.4) fL Immature Gran % (Auto) 0.3 % Neut % (Auto) 58.1 % Lymph % (Auto) 28.3 % [place] % (Auto) 8.8 % Eos % (Auto) 4.3 % Baso % (Auto) 0.2 % Neut # (Auto) 5.90 (1.4-6.5) K/uL Lymph # (Auto) 2.88 (1.2-3.4) K/uL [place] # (Auto) 0.89 H (0.11-0.59) K/uL Eos # (Auto) 0.44 (0-0.5) K/uL Baso # (Auto) 0.02 (0-0.2) K/uL Immature Gran # (Auto) 0.03 H (0.00-0.02) K/uL Sodium 140 (136-145) mmol/L Potassium 3.1 L (3.5-5.1) mmol/L Chloride 107 (98-107) mmol/L Carbon Dioxide 25 (21-32) mmol/L Anion Gap 8 (3-11) BUN 8 (6-23) mg/dl Creatinine 0.78 (0.6-1.2) mg/dl Est Cr Clr Drug Dosing 99.9 ml/min Est GFR ( Amer) 109.4 ml/min Est GFR (Non-Af Amer) 94.4 ml/min BUN/Creatinine Ratio 10.3 (10-20) Glucose 100 H (70-99(Fasting)) mg/dl Calcium 8.9 (8.5-10.1) mg/dl Magnesium 1.6 L (1.7-2.4) mg/dl Total Bilirubin (0.2-1.0) mg/dl AST (13-39) U/L ALT (7-52) U/L Alkaline Phosphatase (34-104) U/L Troponin I High Sens (0-14) pg/ml Total Protein (6.0-8.3) gm/dl Albumin (3.4-5.0) gm/dl Globulin (2.5-4.0) gm/dl Albumin/Globulin Ratio (0.9-2) Lipase (11-82) U/L HCG, Qual (Negative) SARS-CoV-2, RNA, NAAT NEGATIVE (NEGATIVE) 02/27/22 02/27/22 02/27/22 Range/Units 21:10 21:10 21:10 WBC 13.61 H (4.8-10.8) K/uL RBC 4.59 (4.2-5.4) M/uL Hgb 14.5 (12.0-16.0) g/dL Hct 42.2 (37-47) % MCV 91.9 (80-100) fL MCH 31.6 (25-34) pg MCHC 34.4 (32-36) g/dL RDW Std Deviation 47.3 H (36.4-46.3) fL RDW Coeff of Gabriel 14.1 (11.5-14.5) % Plt Count 313 (130-400) K/uL MPV 10.5 H (7.4-10.4) fL Immature Gran % (Auto) 0.3 % Neut % (Auto) 71.3 % Lymph % (Auto) 17.5 % [place] % (Auto) 8.3 % Eos % (Auto) 2.5 % Baso % (Auto) 0.1 % Neut # (Auto) 9.70 H (1.4-6.5) K/uL Lymph # (Auto) 2.38 (1.2-3.4) K/uL [place] # (Auto) 1.13 H (0.11-0.59) K/uL Eos # (Auto) 0.34 (0-0.5) K/uL Baso # (Auto) 0.02 (0-0.2) K/uL Immature Gran # (Auto) 0.04 H (0.00-0.02) K/uL Sodium 140 (136-145) mmol/L Potassium 3.3 L (3.5-5.1) mmol/L Chloride 105 (98-107) mmol/L Carbon Dioxide 25 (21-32) mmol/L Anion Gap 10 (3-11) BUN 8 (6-23) mg/dl Creatinine 0.72 (0.6-1.2) mg/dl Est Cr Clr Drug Dosing 107.8 ml/min Est GFR ( Amer) 120.6 ml/min Est GFR (Non-Af Amer) 104.0 ml/min BUN/Creatinine Ratio 11.1 (10-20) Glucose 92 (70-99(Fasting)) mg/dl Calcium 9.5 (8.5-10.1) mg/dl Magnesium (1.7-2.4) mg/dl Total Bilirubin 0.9 (0.2-1.0) mg/dl AST 12 L (13-39) U/L ALT 11 (7-52) U/L Alkaline Phosphatase 125 H (34-104) U/L Troponin I High Sens 5.3 (0-14) pg/ml Total Protein 7.0 (6.0-8.3) gm/dl Albumin 4.3 (3.4-5.0) gm/dl Globulin 2.7 (2.5-4.0) gm/dl Albumin/Globulin Ratio 1.6 (0.9-2) Lipase 17 (11-82) U/L HCG, Qual Negative (Negative) SARS-CoV-2, RNA, NAAT (NEGATIVE) Medications Administered Current Inpatient Medications Acetaminophen (Acetaminophen 325 Mg Tab) 650 mg PO Q4H PRN PRN Reason: Pain or Fever Stop: 03/30/22 02:22 Cyanocobalamin (Cyanocobalamin (B-12) 500 Mcg Tablet) 1,000 mcg PO DAILY LUIS Stop: 03/30/22 08:59 Last Admin: 02/28/22 07:33 Dose: 1,000 mcg Documented by: Folic Acid (Folic Acid 1 Mg Tab) 1 mg PO BID LUIS Stop: 03/30/22 08:59 Last Admin: 02/28/22 07:33 Dose: 1 mg Documented by: Gabapentin (Gabapentin 600 Mg Tab) 600 mg PO TID LUIS Stop: 03/30/22 08:59 Last Admin: 02/28/22 07:32 Dose: 600 mg Documented by: Hydromorphone HCl (Hydromorphone Inj 0.5 Mg/0.5 Ml Syr) 0.5 mg IV Q3H PRN PRN Reason: Severe Pain Stop: 03/14/22 02:22 Last Admin: 02/28/22 06:59 Dose: 0.5 mg Documented by: Dextrose/Sodium Chloride (D5w And 1/2nss) 1,000 mls @ 80 mls/hr IV .[id number] [facility] Stop: 03/30/22 02:22 Last Admin: 02/28/22 03:51 Dose: 80 mls/hr Documented by: Pantoprazole Sodium 40 mg/ (Dextrose) 100 mls @ 20 mls/hr IV Q5H [facility] Stop: 03/30/22 02:59 Last Admin: 02/28/22 03:52 Dose: 8 mg/hr, 20 mls/hr Documented by: Magnesium Sulfate/Dextrose (Magnesium Sulfate / D5w) 1 gm in 100 mls @ 50 mls/hr IV Q2H [facility] Stop: 02/28/22 10:29 Potassium Chloride ([place] / Wtr) 10 meq in 100 mls @ 100 mls/hr IV Q1H [facility]; Protocol Stop: 02/28/22 10:29 Magnesium Oxide (Magnesium Oxide 400 Mg Tab) 400 mg PO BID [facility] Stop: 03/30/22 08:59 Last Admin: 02/28/22 07:33 Dose: 400 mg Documented by: Nitroglycerin (Nitroglycerin Sl 0.4 Mg/Tab Tab) 0.4 mg SL UD PRN PRN Reason: Chest Pain Stop: 03/30/22 02:22 Ondansetron HCl (Ondansetron Inj 2 Mg/Ml 2 Ml Vial) 4 mg IV Q6H PRN PRN Reason: Nausea Stop: 03/30/22 02:22 Last Admin: 02/28/22 03:24 Dose: 4 mg Documented by: Oxcarbazepine (Oxcarbazepine 150 Mg Tablet) 150 mg PO BID [facility] Stop: 03/30/22 08:59 Last Admin: 02/28/22 07:32 Dose: 150 mg Documented by: Oxycodone HCl (Oxycodone Hcl Ir 5 Mg Tab (Immediate Release)) 10 mg PO DAILY PRN PRN Reason: Pain Stop: 03/14/22 02:22 Oxycodone HCl (Oxycodone Hcl 20 Mg Tabcr (Oxycontin)) 20 mg PO BID [facility] Stop: 03/14/22 08:59 Pyridoxine HCl (Pyridoxine Hcl 50 Mg Tab) 100 mg PO BID [facility] Stop: 03/30/22 08:59 Last Admin: 02/28/22 07:32 Dose: 100 mg Documented by: Rizatriptan Benzoate (Rizatriptan Benzoate [employer] 10 Mg Tab) 10 mg PO DAILY PRN PRN Reason: Migraine Headache Stop: 03/30/22 03:50
[2022-02-28] MEDS ORDERED: MAGNESIUM OXIDE 400 MG TAB PO SCH (09:00)
[2022-02-28] MEDS ORDERED: FOLIC ACID 1 MG TAB PO SCH (09:00)
[2022-02-28] MEDS ORDERED: OXcarbazepine 150 MG TABLET PO SCH (09:00)
[2022-02-28] MEDS ORDERED: PYRIDOXINE HCL 50 MG TAB PO SCH (09:00)
[2022-02-28] MEDS ORDERED: oxyCODONE HCL 20 MG TABCR (OxyCONTIN) PO SCH (09:00)
[2022-02-28] MEDS ORDERED: CYANOCOBALAMIN (B-12) 500 MCG TABLET PO SCH (09:00)
--- NOTE | 2022-02-28 10:21 | Gastrointestinal Consultation ---
Date of Consultation February 28, 2022 Assessment & Plan (1) Nausea & vomiting: (2) Chronic narcotic use: (3) Abdominal pain: (4) Hematemesis/vomiting blood: (5) Constipation: nausea and vomiting with acute on chronic right sided abdominal pains in the setting of moderate constipation and opiate dependence; could be 2/2 biliary etiology vs. constipation vs. less likely a gastritis recs: change protonix drip to protonix 40 mg IV daily obtain US abdomen golytely 4 L bowel clean out now for her constipation, then would start miralax BID after that would also give a dose of relistor now for opiate induced constipation diet as tolerated, supportive care thank you for allowing me to participate in the care of this patient History of Present Illness Attending Physician: Sandeep Jean MD History of Present Illness 41-year-old female with past medical history significant for MTHFR gene mutation, mild persistent asthma, GERD without esophagitis, polyarthritis, spina bifida of cervical region with hydrocephalus, uncomplicated opioid dependence, history of intractable migraine, trigeminal neuralgia, tobacco use disorder, history of Chiari malformation here with abdominal pains. pains are right sided on/off, and have been going for the last few years since she had her gallbladder removed, pain comes on when she exerts herself. She is on chronic opiates as well and CT A/P noted moderate constipation. Also notes that she gets nausea/vomiting when she gets the pain and had some hematemesis, hgb is normal at 12.9 today. Normal lipase as well. She is asking for opiates right now for her pain. labs reviewed. Allergies Allergy/AdvReac Type Severity Reaction Status Date / Time pregabalin AdvReac Intermediate Vision Verified 02/27/22 19:46 changes. Home Medications Medication Instructions Recorded Confirmed Type gabapentin 600 mg tablet 600 mg PO TID 12/04/18 02/27/22 History magnesium oxide 400 mg PO BID 12/04/18 02/27/22 History omeprazole 20 mg capsule,delayed 20 mg PO BID PRN 12/04/18 02/27/22 History release ondansetron 4 mg disintegrating 4 mg TRANSLINGUAL TID PRN 12/04/18 02/27/22 History tablet oxycodone 10 mg tablet 10 mg PO DAILY PRN 12/04/18 02/27/22 History pyridoxine (vitamin B6) 100 mg 100 mg PO BID 12/04/18 02/27/22 History tablet rizatriptan 10 mg disintegrating 10 mg TRANSLINGUAL DIRECTED PRN 12/04/18 02/27/22 History tablet galcanezumab-gnlm 120 mg/mL 1 dose SUBCUT MONTHLY 01/08/19 02/27/22 History subcutaneous syringe (Emgality) sumatriptan 20 mg/actuation nasal 1 spray INTRANASAL UD 01/08/19 02/27/22 History spray (Imitrex) oxcarbazepine 150 mg tablet 150 mg PO BID 07/07/19 02/27/22 History (Trileptal) oxycodone 20 mg tablet,crush 20 mg PO BID 07/07/19 02/27/22 History resistant,extended release 12 hr (OxyContin) cyanocobalamin (vitamin B-12) 1,000 mcg PO DAILY 12/03/20 02/27/22 History 1,000 mcg tablet folic acid 1 mg tablet 1 mg PO BID 12/03/20 02/27/22 History Patient History Medical History (Updated 02/28/22 @ 10:19 by Geraldo Narayanan MD) History of Chiari malformation Migraine Spina bifida Trigeminal neuralgia of right side of face Surgical History Hx of cholecystectomy Social History Smoking Status: Current every day smoker Tobacco Type: Cigarettes Second Hand Exposure: Yes; Do You Dip or Chew Tobacco: No; Hx Alcohol Use: No Hx Substance Use: No Preferred Language: [place] Communication Ability: Effective Qualitative Executive Researcher Required: No Beliefs That Will Affect Care: None Current Living Situation: Significant Other Other Information That Helps Us Care for You: No Feels Safe at Home: Yes Safety Concerns: Feels Safe At This Time Assistive Devices: Denture - Upper, Denture - Lower and Glasses Assistive Devices Comment: usually wears upper dentures only Review of Systems Constitutional: no fever, no chills and no weight loss Eyes: as per Subjective / HPI Ear, Nose, Mouth, Throat: as per Subjective / HPI Respiratory: no dyspnea and no dyspnea on exertion Cardiovascular: no chest pain and no palpitations Gastrointestinal: as per Subjective / HPI Musculoskeletal: no joint pain and no swelling Integumentary: no rash and no lesions Neurologic: no numbness and no paresthesia Psychiatric: no depression and no anxiety Endocrine: no fatigue Hematologic / Lymphatic: no easy bleeding and no easy bruising Physical Exam Constitutional: WD/WN, vitals as above Eyes: EOM intact bilaterally Neck: normal visual inspection Respiratory: normal respiratory effort, lungs clear to auscultation Cardiovascular: RRR, no murmur, no edema Gastrointestinal (Abdomen): Inspection/Auscultation: abdomen normal to inspection; abdomen not distended Percussion/Palpation: abdomen soft; abdomen nontender and no hepatosplenomegaly Musculoskeletal: Extremities: no cyanosis Gait: normal gait Skin: no rashes, warm and dry Neurologic: moves all extremities Psychiatric: A+Ox3, euthymic affect Results & Data ([facility]) Vital Signs (Past 12 Hours) Vital Signs Temp Pulse Pulse Resp BP BP Pulse Ox 02/28/22 08:00 73 02/28/22 06:43 36.8 C 71 20 156/92 H 97 02/28/22 04:33 79 02/28/22 04:05 36.7 C 76 18 155/101 H 98 02/28/22 02:04 86 18 134/82 98 PG Care Time/CCT Total # of Minutes Spent Total Time Spent with Patient: Total time spent is greater than 50% in coordination of care (as documented) at patient's floor/unit and/or counseling patient: Coding Level of Care Code 17272 Inpt Consult Level 4 Diagnoses Nausea & vomiting R11.2 Vomiting type: unspecified Chronic narcotic use F11.90 Abdominal pain R10.11 Abdominal location: right upper quadrant Hematemesis/vomiting blood K92.0 Nausea presence: with nausea Constipation K59.00 (1) Nausea & vomiting Vomiting type: unspecified Qualified Code(s): R11.2 - Nausea with vomiting, unspecified (2) Abdominal pain Abdominal location: right upper quadrant Qualified Code(s): R10.11 - Right upper quadrant pain (3) Hematemesis/vomiting blood Nausea presence: with nausea Qualified Code(s): K92.0 - Hematemesis
--- NOTE | 2022-02-28 10:29 | Electrocardiogram Report ---
Test Reason : Blood Pressure : / mmHG Vent. Rate : 074 BPM Atrial Rate : 074 BPM P-R Int : 134 ms QRS Dur : 086 ms QT Int : 390 ms P-R-T Axes : 056 053 056 degrees QTc Int : 432 ms Normal sinus rhythm Normal ECG When compared with ECG of 26-FEB-2022 18:44, No significant change was found Confirmed by Moiz Reyez ([id number]) on 02/28/2022 10:28:59 AM Referred By: REFERRED SELF Confirmed By:Moiz Reyez
[2022-02-28] MEDS: MAGNESIUM SULFATE / D5W 1 GM/100 ML BAG IV SCH ×2 (10:32→14:26)
[2022-02-28] MEDS ORDERED: METHYLNALTREXONE BROMIDE 12 MG/0.6 ML VIAL SQ ONE (11:03)
[2022-02-28 11:11] LABS: Hematocrit (blood only) 38.6 % (37-47); Hemoglobin 13.1 g/dL (12.0-16.0)
[2022-02-28] MEDS ORDERED: PANTOprazole 40 MG in SYRINGE 0 ML IV SCH (11:30)
[2022-02-28] MEDS: POTASSIUM CHLORIDE / WTR 10 MEQ/100 ML PLCT IV SCH ×2 (12:06→14:22)
--- NOTE | 2022-02-28 12:40 | Ultrasound Report ---
ABDOMINAL ULTRASOUND COMPLETE HISTORY: Generalized abdominal pain.. COMPARISON: Abdomen and pelvis CT 02/26/2022. FINDINGS: Pancreas: The pancreatic head and tail are obscured by overlying bowel gas. The remaining portions of the pancreas are within normal limits. Liver: Unremarkable. Gallbladder: The gallbladder is surgically absent. CBD: 6 mm Kidneys: No hydronephrosis. Spleen: Normal in size. Aorta: Normal in caliber. IVC: Patent. IMPRESSION: Prior cholecystectomy. No significant abnormality identified within the within the abdomen. ACT 112: Negative or not required by law. Electronically signed by: Rafi Meneses M.D. 02/28/2022 12:38 PM
[2022-02-28] MEDS ORDERED: LAVAGE SOLUTION 4000ML PO SCH (13:00)
[2022-02-28 13:39] LABS: Appearance Urine Clear (Clear); Bacteria Urine Automated Negative (Negative); Bilirubin Urine Negative (Negative); Blood Urine 1+ (Negative); Color Urine Orange; Epithelial Cell Urine Auto 20-30 /lpf (0-5); Glucose Urine UA Negative (Negative); Ketones Urine Negative (Negative); Leukocyte Esterase Urine Negative (Negative); Nitrite Urine Negative (Negative); Protein Urine Negative (Negative); RBC Urine Automated 0-4 /hpf (0-4); Urobilinogen Urine Negative (Negative); WBC Urine Automated 0 /hpf (0-5)
--- NOTE | 2022-02-28 17:08 | Discharge Summary ---
Date of Service February 28, 2022 Admission HPI Per Admitting Provider A 41-year-old female with past medical history significant for MTHFR gene mutation, mild persistent asthma, GERD without esophagitis, polyarthritis, spina bifida of cervical region with hydrocephalus, uncomplicated opioid dependence, history of intractable migraine, trigeminal neuralgia, tobacco use disorder, history of Chiari malformation. The patient presents with abdominal pain. Complains of right sided abdominal pain going on for last few days since last . It happened while she was at home mowing the grass. The patient says she had a gallbladder taken out 2 years ago. Whenever she exerts herself, she gets abdominal pain. She was in the ER yesterday and she had some hematemesis. She was discharged to follow as outpatient, but she comes back as the pain is not getting better. Complains of some hematemesis but hemoglobin is stable at 14.5. Hemodynamically stable. Her lipase level is okay. She had a CT of abdomen and pelvis yesterday and it was unremarkable except for some constipation. Currently, resting comfortably. Denies any fevers or chills. Denies any chest pain, no shortness of breath. Has some sore throat from vomiting. She says she had hematemesis couple of timestoday, few times yesterday. Denies any headache. No blurred visions, no earache, no runny nose. Normal bowel and bladder movements. Denies any blood in stool or black stools, no hematuria, no swelling in the legs. Ambulating okay. Admission Exam Per Admitting Provider GENERAL: The patient is of moderate build, not in acute distress. VITAL SIGNS: Temperature 36.9, pulse 89, respiratory rate 18, blood pressure 160/117, oxygen 99% on room air. HEENT: Pupils equal, round and reactive to light. Oral mucosa moist. NECK: No JVD. No neck masses. CARDIOVASCULAR: S1 and S2 heard. Regular rate and rhythm. No murmur, no gallop. RESPIRATORY SYSTEM: Normal AP diameter. No accessory muscle use. No wheezing, no crackles. ABDOMEN: Soft, bowel sounds present. Right-sided abdominal tenderness present. Mild guarding, no rigidity, no distention. CENTRAL NERVOUS SYSTEM: Cranial nerves II-XII grossly intact, nonfocal. EXTREMITIES: No edema, no erythema. Principal Diagnosis abd. pain Pt left AMA Discharge Exam Pt left AMA Discharge Data Allergies Allergy/AdvReac Type Severity Reaction Status Date / Time pregabalin AdvReac Intermediate Vision Verified 02/27/22 19:46 changes. Consultations 02/27/22 22:39 ED Decision to Admit Stat 02/28/22 08:30 Consult Gastroenterology Routine Ordered Studies 02/28/22 11:01 US abdomen complete Urgent FINDINGS: Pancreas: The pancreatic head and tail are obscured by overlying bowel gas. The remaining portions of the pancreas are within normal limits. Liver: Unremarkable. Gallbladder: The gallbladder is surgically absent. CBD: 6 mm Kidneys: No hydronephrosis. Spleen: Normal in size. Aorta: Normal in caliber. IVC: Patent. IMPRESSION: Prior cholecystectomy. No significant abnormality identified within the within the abdomen. Total Time Total Time Spent Total Time Spent (In Minutes): 0 Discharge Plan Discharge Items Patient Disposition: Against Medical Advice Reason For Visit: ABDOMINAL PAIN Discharge Diagnosis: abd. pain Activity: Per Instructions section Non-emergency contact: Primary Care Provider Call non-emergency contact if: you have any medication questions and your symptoms worsen Follow-up/Referrals: Jayden Singleton DO [Primary Care Provider] - Diet: Other - See Diet Comment Addtl Attending Provider Instructions: Patient left AMA Pending Studies at Discharge: No Stand-Alone Forms: My Mama, Smoking Cessation Medications and DC Order Prescriptions: Continued sumatriptan [Imitrex] 20 mg/actuation spray,non-aerosol 1 spray intranasal UD RF: 0 Emgality Syringe 120 mg/mL Syringe 1 dose SUBCUT MONTHLY RF: 0 cyanocobalamin (vitamin B-12) 1,000 mcg tablet 1,000 mcg PO DAILY RF: 0 folic acid 1 mg tablet 1 mg PO BID RF: 0 gabapentin 600 mg tablet 600 mg PO TID RF: 0 rizatriptan 10 mg tablet,disintegrating 10 mg Translingual DIRECTED PRN (Reason: Migraine Headache) RF: 0 omeprazole 20 mg capsule,delayed release(DR/EC) 20 mg PO BID PRN (Reason: Acid Reflux) RF: 0 pyridoxine (vitamin B6) [Vitamin B-6] 100 mg tablet 100 mg PO BID RF: 0 ondansetron 4 mg tablet,disintegrating 4 mg Translingual TID PRN (Reason: Nausea) RF: 0 oxycodone 10 mg tablet 10 mg PO DAILY PRN (Reason: Pain) RF: 0 magnesium oxide 400 mg magnesium Tablet 400 mg PO BID RF: 0 oxcarbazepine [Trileptal] 150 mg Tablet 150 mg PO BID RF: 0 oxycodone [OxyContin] 20 mg Tablet,Oral Only,Ext.Rel.12 Hr 20 mg PO BID RF: 0 Discharge Orders: Left Against Medical Advice (Routine); Ordered 02/28/22 Ordered By: Sandeep Jean Admission Data Admit Date/Time: 02/28/22 00:03 Attending Provider: Sandeep Jean Admit Provider: Alfonzo Kaufman Primary Care Provider: Jayden Singleton Other Providers: Alfnozo Kaufman ; Alcira Burrows ; Lidia Martin ; Alexsander Tejada ; Coral Villagomez ; Bo Sheppard ; Anselmo Helton ; Milton Foster ; Alexy Curtis ; Justa Bermeo ; Nancy Fuller ; Haley Murillo ; Belkys Muhammad ; Yoselin Woods Other Interventions: Discharge Summary Assessment (RN) Last Done: 02/28/22 17:00
--- NOTE | 2022-03-01 13:02 | Electrocardiogram Report ---
Test Reason : Blood Pressure : / mmHG Vent. Rate : 072 BPM Atrial Rate : 072 BPM P-R Int : 146 ms QRS Dur : 086 ms QT Int : 398 ms P-R-T Axes : 042 028 031 degrees QTc Int : 435 ms Normal sinus rhythm Normal ECG When compared with ECG of 27-FEB-2022 21:38, No significant change was found Confirmed by Christian Alvarez ([id number]) on 03/01/2022 1:01:49 PM Referred By: REFERRED SELF Confirmed By:Roland Alvarez
== END 2022-02-28 15:45 | disposition left against medical advice (07) ==
LOC: ED 19:23 → 2N 19:23
DX: R10.11 Right upper quadrant pain; K92.0 Hematemesis; F17.210 Nicotine dependence, cigarettes, uncomplicated; K59.00 Constipation, unspecified

== ENCOUNTER 2023-06-06 14:05 | Observation (INO) ==
--- NOTE | 2023-06-06 14:53 | ED Triage Note ---
Date of Service June 06, 2023 History of Present Illness This patient was briefly evaluated while in triage. An abbreviated physical exam was performed. This patient is a 43-year-old Female who presents to the ED for evaluation of a "migraine" Struck head on floor last tuesday when fell on wet floor. Headache since that time. She noted back of head swelling as well. She also notes neck pain. Zyrtec and imitrex with no relief. No close contacts with illness. Physical Exam GENERAL: 43 year old female. In no acute distress. SKIN: No lesions or rashes. HEAD: Occipital TTP noted. EYES: Bilateral periorbital edema. HEART: Regular rate and rhythm. LUNGS: Clear to auscultation. NEURO: Alert and oriented. No deficits. MUSCULOSKELETAL: No deformities to inspection of the extremities. PSYCH: Patient is pleasant and answers all questions appropriately. Initial orders for labs and / or imaging were placed and patient was placed in the waiting area until a bed is available. Please see further documentation for the full ED course. Benefit vs risk of imaging discussed with patient. It is felt that the benefit outweighs risk. Patient agreeable to proceeding.
--- NOTE | 2023-06-06 17:30 | CT Scan Report ---
CT SCAN OF THE BRAIN WITHOUT IV CONTRAST CLINICAL HISTORY: Fall. Head injury. COMPARISON STUDY: CT of the brain dated 04/22/2023. TECHNIQUE: Unenhanced axial CT scan of the brain is performed from the vertex to the skull base. A d ose lowering technique was utilized adhering to the principles of ALARA. CT DOSE: 1077.39 mGy.cm FINDINGS: Brain parenchyma: The brain parenchyma is normal in appearance. There is no hemorrhage, mass effect, or evidence of acute territorial ischemia by CT criteria. Toro-white matter differentiation is preser hank. No extra-axial fluid collection is seen. Ventricles, sulci, cisterns: Normal in configuration. Intracranial vasculature: The visualized intracranial vasculature at the skull base is normal in appe arance. Calvarium: There is postsurgical change from occipital craniectomy. No depressed calvarial fracture i s identified. Sinuses and mastoids: The visualized paranasal sinuses are clear. The mastoid air cells are well pneu matized. Orbits: The bony orbits are grossly intact. IMPRESSION: No acute intracranial abnormality. ACT 112: Negative or not required by law. Electronically signed by: Dustin Nowak M.D. 06/06/2023 5:29 PM
--- NOTE | 2023-06-06 17:37 | CT Scan Report ---
CT SCAN OF THE CERVICAL SPINE CLINICAL HISTORY: Fall. Neck pain. COMPARISON STUDY: CT of the cervical spine dated 07/20/2017. TECHNIQUE: CT scan of the cervical spine is performed from the skull base to the upper thoracic spine . Images are reviewed in the axial, sagittal, and coronal planes. IV contrast was not administered fo r this examination. A dose lowering technique was utilized adhering to the principles of ALARA. FINDINGS: Skeletal structures: The skeletal structures are well mineralized. There is no evidence of fracture o r subluxation involving the cervical spine. The posterior ring of C1 is congenitally versus surgicall y absent. Vertebral body height and alignment are maintained. There is straightening of the cervical lordosis. The odontoid process and lateral masses are intact. The atlantoaxial articulation is preser hank. The spinous processes appear intact. Intervertebral discs: The disc spaces are well maintained. Central canal: Widely patent. Soft tissues: The prevertebral and paraspinous soft tissues are within normal limits. Calvarium: There is postsurgical change from occipital craniectomy. Brain parenchyma: Partially visualized brain parenchyma at the skull base is within normal limits. Sinuses and mastoids: The visualized paranasal sinuses are clear. There is trace left mastoid effusio n. The right mastoid air cells are well pneumatized. Lung apices: Clear as visualized. IMPRESSION: There is no evidence of fracture or subluxation involving the cervical spine. ACT 112: Negative or not required by law. Electronically signed by: Dustin Nowak M.D. 06/06/2023 5:34 PM
[2023-06-06 17:50] LABS: Basophils % (auto) 0.8 %; Eosinophils # (auto) 0.87 K/uL (0-0.50); Eosinophils % (auto) 7.4 %; Hemoglobin 12.6 g/dl (12.0-16.0); Immature Granulocytes # (auto) 0.03 K/uL (0.01-0.20); Immature Granulocytes % (auto) 0.3 %; Lymphocytes # (auto) 1.79 K/uL (1.2-3.4); Lymphocytes % (auto) 15.2 %; Mean Corpuscular Hemoglobin 31.6 pg (25.0-34.0); Mean Corpuscular Hgb Conc 33.2 g/dL (32.0-36.0); Mean Corpuscular Volume 95.2 fL (80.0-100.0); Mean Platelet Volume 10.3 fL (9.4-12.4); Monocytes # (auto) 0.75 K/uL (0.11-0.59); Monocytes % (auto) 6.4 %; Neutrophils # (auto) 8.23 K/uL (1.40-6.50); Neutrophils % (auto) 69.9 %; Platelet Count 331 K/uL (130-400); RDW Coefficient of Variation 12.5 % (11.5-14.5); RDW Standard Deviation 43.7 fL (36.4-46.3); Red Blood Count 3.99 M/uL (4.20-5.40); White Blood Count 11.77 K/ul (4.8-10.8)
[2023-06-06] MEDS ORDERED: PROCHLORPERAZINE 2 ML IV ONE (18:01)
[2023-06-06] MEDS ORDERED: diphenhydrAMINE 50 MG/ML VIAL IV STA (18:01)
[2023-06-06] MEDS ORDERED: SODIUM CHLORIDE 0.9% 1000ML 1,000 ML IV ONE (18:01)
[2023-06-06 18:12] LABS: Albumin Globulin Ratio 1.6 (0.9-2); Albumin Level 4.9 gm/dl (3.4-5.0); Bilirubin,Total 0.3 mg/dl (0.2-1.0); Calcium 9.9 mg/dl (8.6-10.3); Creatinine Clr Calc Pharmacy 69.6 ml/min; Est GFR (African American) 67.5 ml/min; Est GFR (Non-African American) 58.2 ml/min; Total Protein 7.9 gm/dl (6.0-8.3)
[2023-06-06] MEDS ORDERED: diphenhydrAMINE 50 MG/ML VIAL ONE (20:17)
[2023-06-06] MEDS ORDERED: PROCHLORPERAZINE 5 MG/ML 2 ML VIAL ONE (20:18)
[2023-06-06] MEDS ORDERED: MAGNESIUM SULFATE / D5W 1 GM/100 ML BAG IV STA (20:48)
[2023-06-06] MEDS ORDERED: ACETAMINOPHEN 1,000 MG/100 ML VIAL IV STA (20:52)
[2023-06-06] MEDS ORDERED: DEXAMETHASONE SOD INJ 4 MG/ML VIAL IV STA (20:52)
--- NOTE | 2023-06-06 20:52 | Emergency Department Note ---
Impression & Plan Intractable migraine ED Provider Note HISTORY OF PRESENT ILLNESS: Patient is a 43-year-old female presenting with a migraine headache. Patient reports that 4 days ago she is slipped and fell on a wet floor at the longterm and hit the back of her head. She has a history of migraine headaches and reports she had a constant headache since the fracture. She reports that normally she is on Imitrex and that has not been giving her any relief over the last few days. She denies any chest pain or shortness of breath. Denies any fevers. Denies any changes in vision. Reports some intermittent numbness in her right arm over the last few days. Patient reports that "normally Dilaudid helps my migraines." ROS: as above PHYSICAL EXAM: Constitutional: Patient appears in no acute distress. HENT: Head: Normocephalic and atraumatic. Eyes: EOMI, PERRL Mouth/Throat: Mucous membranes moist. Neck: Trachea midline. Neck supple. Cardiovascular: RRR, No murmurs, rubs or gallops. Intact distal pulses. Pulmonary/Chest: No respiratory distress. Breath sounds clear and equal bilaterally. No wheezes or rales. Abdominal: Abdomen soft, no tenderness, rebound or guarding. Musculoskeletal: No edema, tenderness or deformity noted. Skin: Warm and dry. No rash, erythema, pallor or cyanosis Psychiatric: Appropriate mood and affect for situation. Neurological: Alert and keenly responsive. CN II-XII grossly intact, moving all extremities equally and fully. MDM: - Vitals signs showed hypertension - History obtained via patient. Patient presents with headache. Patient has history of migraine headaches and reports that 4 days ago she slipped and fell on a wet floor at the longterm and hit the back of her head. She states she has had an intractable headache ever since. She reports it feels more intense than her typical migraines. Denies any changes in vision. Denies any numbness or tin gling in her extremities. - Chronic conditions affecting care: Chiari malformation; chronic migraines - Differential diagnoses include, but are not limited to: primary headache; intracranial hemorrhage; CVA - Order placed for continuous cardiac monitoring. At this time, monitor showed rate of 74 bpm with normal sinus rhythm, per my interpretation. - External medical records reviewed. - Laboratory workup interpreted by myself showed slight leukocytosis (WBC 11.77); normal electrolytes; slightly elevated anion gap (15); normal glucose - CT head wo contrast negative for acute intracranial pathology. - CT cervical spine wo contrast negative for acute injury. - Patient initially given 1L NS, 10 mg IV compazine and 50 mg IV benadryl. On reassessment, the patient reports continued headache. She was given 1 g of IV magnesium and 6 mg of IV dexamethasone without any improvement in symptoms. She is given 1 g of IV Tylenol and 30 mg of IV Toradol and complained of continued headache of 7 out of 10. Patient continues to state on repeat reassessment that Dilaudid is the only thing that normally helps when she has this breakthrough pain. She complains of continued headache and does not feel comfortable to be discharged at this time. We will admit to the hospitalist service for observa tion for intractable headache. - Yanna was observed in the ER for 10 hours without improvement in symptoms. - Discussion was had with psychologist social about patient's case and need for admission for observation. - Hospitalist, Dr. Kaufman, consulted for admission - Patient admitted to [facility] Hospitalist service for further evaluation and management. ASSESSMENT AND PLAN: Diagnosis: intractable migraine Plan: admit Past Med/Surg History Medical History (Updated 06/07/23 @ 00:59 by Mary Leal MD) History of Chiari malformation Migraine Spina bifida Trigeminal neuralgia of right side of face Surgical History Hx of cholecystectomy Social History Smoking Status: Former smoker Tobacco Type: Cigarettes Second Hand Exposure: Yes; Do You Dip or Chew Tobacco: No; Hx Alcohol Use: No Hx Substance Use: No Preferred Language: Citizen Of [place] Communication Ability: Effective Head Correction Officer Required: No Beliefs That Will Affect Care: None marital status: Single Current Living Situation: Significant Other How many Children do You have: 0 Feels Safe at Home: Yes Assistive Devices: None Allergies Allergies Allergy/AdvReac Type Severity Reaction Status Date / Time pregabalin AdvReac Intermediate Vision Verified 02/27/22 19:46 changes. Home Meds Home Medications Medication Instructions Recorded Confirmed gabapentin 600 mg tablet 0 mg PO TID 12/04/18 04/22/23 omeprazole 20 mg capsule,delayed 20 mg PO BID 12/04/18 04/22/23 release sumatriptan 20 mg/actuation nasal 1 spray intranasal UD PRN Migraine 01/08/19 04/22/23 spray (Imitrex) Headache [id number] 250 1 tab PO BID PRN Migraine Headache 04/22/23 04/22/23 mg-250 mg-65 mg tablet (Excedrin Migraine) buspirone 10 mg tablet 10 mg PO TID 04/22/23 04/22/23 gabapentin 300 mg capsule 0 mg PO BID 04/22/23 04/22/23 gabapentin 300 mg capsule 0 mg PO HS 04/22/23 04/22/23 gabapentin 300 mg capsule 0 mg PO TID 04/22/23 04/22/23 gabapentin 300 mg capsule 300 mg PO DAILY 04/22/23 04/22/23 gabapentin 300 mg tablet 0 mg PO BID 04/22/23 04/22/23 gabapentin 600 mg tablet 0 mg PO BID 04/22/23 04/22/23 gabapentin 600 mg tablet 0 mg PO DAILY 04/22/23 04/22/23 metoprolol succinate 25 mg 25 mg PO BID 04/22/23 04/22/23 tablet,extended release 24 hr oxaprozin 600 mg tablet 600 mg PO BID 04/22/23 04/22/23 rimegepant 75 mg disintegrating 75 mg PO DAILY PRN Migraine 04/22/23 04/22/23 tablet (Nurtec ODT) Headache tizanidine 4 mg tablet 8 mg PO TID PRN Other 04/22/23 04/22/23 Results & Data (ED) Vital Signs Vital Signs - 24 hr 06/06/23 14:48 06/06/23 20:13 06/06/23 22:26 Temperature 36.8 C Temperature Source Temporal Artery Scan Pulse Rate 88 Pulse Rate [Finger] 71 81 Pulse Rhythm Regular Pulse Strength Normal Respiratory Rate 18 20 20 Respiratory Effort / Characteristics Non-Labored Non-Labored Spontaneous Respiratory Depth Normal Normal Respiratory Pattern Regular Blood Pressure 158/98 H Blood Pressure [Right Arm] 146/107 H 173/108 H Blood Pressure Mean 118 Blood Pressure Mean [Right Arm] 120 129 Blood Pressure Position Lying Pulse Oximetry 98 99 100 Oxygen Delivery Method Room Air Room Air Room Air Sepsis Recent Fever Within 48 Hours No Sepsis New/Unexplained Change in Mental Status No Sepsis Action Taken by Nursing No Action Required 06/07/23 00:06 Temperature Temperature Source Pulse Rate Pulse Rate [Finger] 74 Pulse Rhythm Pulse Strength Respiratory Rate 18 Respiratory Effort / Characteristics Respiratory Depth Normal Respiratory Pattern Blood Pressure Blood Pressure [Right Arm] 156/104 H Blood Pressure Mean Blood Pressure Mean [Right Arm] 121 Blood Pressure Position Pulse Oximetry 100 Oxygen Delivery Method Room Air Sepsis Recent Fever Within 48 Hours Sepsis New/Unexplained Change in Mental Status Sepsis Action Taken by Nursing Laboratory Data 06/06/23 17:28 06/06/23 17:28 Lab Results 06/06/23 06/06/23 Range/Units 17:28 17:28 WBC 11.77 H (4.8-10.8) K/ul RBC 3.99 L (4.20-5.40) M/uL Hgb 12.6 (12.0-16.0) g/dl Hct 38.0 (37.0-47.0) % MCV 95.2 (80.0-100.0) fL MCH 31.6 (25.0-34.0) pg MCHC 33.2 (32.0-36.0) g/dL RDW Std Deviation 43.7 (36.4-46.3) fL RDW Coeff of Gabriel 12.5 (11.5-14.5) % Plt Count 331 (130-400) K/uL MPV 10.3 (9.4-12.4) fL Immature Gran % (Auto) 0.3 % Neut % (Auto) 69.9 % Lymph % (Auto) 15.2 % Williamson % (Auto) 6.4 % Eos % (Auto) 7.4 % Baso % (Auto) 0.8 % Neut # (Auto) 8.23 H (1.40-6.50) K/uL Lymph # (Auto) 1.79 (1.2-3.4) K/uL Williamson # (Auto) 0.75 H (0.11-0.59) K/uL Eos # (Auto) 0.87 H (0-0.50) K/uL Baso # (Auto) 0.10 (0-0.2) K/uL Immature Gran # (Auto) 0.03 (0.01-0.20) K/uL Sodium 139 (136-145) mmol/L Potassium 4.0 (3.5-5.1) mmol/L Chloride 101 (98-107) mmol/L Carbon Dioxide 23 (21-32) mmol/L Anion Gap 15 H (3-11) BUN 23 (6-23) mg/dl Creatinine 1.15 (0.6-1.2) mg/dl Est Cr Clr Drug Dosing 69.6 ml/min Est GFR ( Amer) 67.5 ml/min Est GFR (Non-Af Amer) 58.2 ml/min BUN/Creatinine Ratio 20.0 (10-20) Glucose 71 (70-99(Fasting)) mg/dl Calcium 9.9 (8.6-10.3) mg/dl Total Bilirubin 0.3 (0.2-1.0) mg/dl AST 23 (13-39) U/L ALT 25 (7-52) U/L Alkaline Phosphatase 58 (34-104) U/L Total Protein 7.9 (6.0-8.3) gm/dl Albumin 4.9 (3.4-5.0) gm/dl Globulin 3.0 (2.5-4.0) gm/dl Albumin/Globulin Ratio 1.6 (0.9-2) Administered Medications Discontinued Medications Dexamethasone (Dexamethasone Sod Inj 4 Mg/Ml Vial) 6 mg IV NOW STA Stop: 06/06/23 20:53 Last Admin: 06/06/23 20:57 Dose: 6 mg Documented By: ARIELLE Diphenhydramine HCl (Diphenhydramine 50 Mg/Ml Vial) 50 mg IV NOW STA Stop: 06/06/23 18:02 Last Admin: 06/06/23 20:19 Dose: 50 mg Documented By: ARIELLE Diphenhydramine HCl (Diphenhydramine 50 Mg/Ml Vial) Confirm Administered Dose 50 mg .ROUTE .STK-MED ONE Stop: 06/06/23 20:18 Last Admin: 06/06/23 20:32 Dose: Not Given Documented By: ARIELLE Sodium Chloride (Nss 1000ml) 1,000 mls @ 999 mls/hr IV .Q1H1M ONE Stop: 06/06/23 19:01 Last Infusion: 06/06/23 21:18 Dose: 0 mls/hr Documented By: Admin: 06/06/23 20:19 Dose: 999 mls/hr Documented By: ARIELLE Prochlorperazine (Compazine) 2 mls @ 1 mls/min IV ONE ONE Stop: 06/06/23 18:02 Last Admin: 06/06/23 20:19 Dose: 1 mls/min Documented By: ARIELLE Magnesium Sulfate/Dextrose (Magnesium Sulfate / D5w) 1 gm in 100 mls @ 100 mls/hr IV NOW STA Stop: 06/06/23 21:47 Last Infusion: 06/06/23 21:59 Dose: 0 mls/hr Documented By: Admin: 06/06/23 20:58 Dose: 100 mls/hr Documented By: ARIELLE Acetaminophen (Ofirmev) 1,000 mg in 100 mls @ 400 mls/hr IV NOW STA Stop: 06/06/23 21:06 Last Infusion: 06/06/23 21:18 Dose: 0 mls/hr Documented By: Admin: 06/06/23 20:55 Dose: 400 mls/hr Documented By: ARIELLE Ketorolac Tromethamine (Ketorolac 30 Mg/Ml Vial) 30 mg IV NOW ONE Stop: 06/06/23 22:10 Last Admin: 06/06/23 22:33 Dose: 30 mg Documented By: ARIELLE Prochlorperazine (Prochlorperazine 5 Mg/Ml 2 Ml Vial) Confirm Administered Dose 10 mg .ROUTE .STK-MED ONE Stop: 06/06/23 20:19 Last Admin: 06/06/23 20:32 Dose: Not Given Documented By: AIRELLE Imaging Data Radiologist's Impression: Cervical Spine CT 06/06/23 14:54 CT SCAN OF THE CERVICAL SPINE CLINICAL HISTORY: Fall. Neck pain. COMPARISON STUDY: CT of the cervical spine dated 07/20/2017. TECHNIQUE: CT scan of the cervical spine is performed from the skull base to the upper thoracic spine. Images are reviewed in the axial, sagittal, and coronal planes. IV contrast was not administered for this examination. A dose lowering technique was utilized adhering to the principles of ALARA. FINDINGS: Skeletal structures: The skeletal structures are well mineralized. There is no evidence of fracture or subluxation involving the cervical spine. The posterior ring of C1 is congenitally versus surgically absent. Vertebral body height and alignment are maintained. There is straightening of the cervical lordosis. The odontoid process and lateral masses are intact. The atlantoaxial articulation is preserved. The spinous processes appear intact. Intervertebral discs: The disc spaces are well maintained. Central canal: Widely patent. Soft tissues: The prevertebral and paraspinous soft tissues are within normal limits. Calvarium: There is postsurgical change from occipital craniectomy. Brain parenchyma: Partially visualized brain parenchyma at the skull base is within normal limits. Sinuses and mastoids: The visualized paranasal sinuses are clear. There is trace left mastoid effusion. The right mastoid air cells are well pneumatized. Lung apices: Clear as visualized. IMPRESSION: There is no evidence of fracture or subluxation involving the cervical spine. ACT 112: Negative or not required by law. Electronically signed by: Dustin Nowak M.D. 06/06/2023 5:[address] 06/06/23 14:54 CT SCAN OF THE BRAIN WITHOUT IV CONTRAST CLINICAL HISTORY: Fall. Head injury. COMPARISON STUDY: CT of the brain dated 04/22/2023. TECHNIQUE: Unenhanced axial CT scan of the brain is performed from the vertex to the skull base. A dose lowering technique was utilized adhering to the principles of ALARA. CT DOSE: 1077.39 mGy.cm FINDINGS: Brain parenchyma: The brain parenchyma is normal in appearance. There is no hemorrhage, mass effect, or evidence of acute territorial ischemia by CT criteria. Toro-white matter differentiation is preserved. No extra-axial fluid collection is seen. Ventricles, sulci, cisterns: Normal in configuration. Intracranial vasculature: The visualized intracranial vasculature at the skull base is normal in appearance. Calvarium: There is postsurgical change from occipital craniectomy. No depressed calvarial fracture is identified. Sinuses and mastoids: The visualized paranasal sinuses are clear. The mastoid air cells are well pneumatized. Orbits: The bony orbits are grossly intact. IMPRESSION: No acute intracranial abnormality. ACT 112: Negative or not required by law. Electronically signed by: Dustin Nowak M.D. 06/06/2023 5:29 PM Discharge Plan Visit Data Chief Complaint: Headache Stated Complaint: MIGRAINE ED Provider: Mary Leal Discharge Problem: Intractable migraine Forms Stand Alone Forms: [facility] Prescriptions Prescriptions: No Action sumatriptan [Imitrex] 20 mg/actuation spray,non-aerosol 1 spray intranasal UD MDD 40MG PER 24 HOURS PRN (Reason: Migraine Headache) Rx Instructions: AT ONSET OF MIGRAINE gabapentin 600 mg tablet 0 mg PO TID Patient Comments: Pt could not verify if she had taken med yet today Rx Instructions: MED LIST HAS START DATE OF 05/25/23 omeprazole 20 mg capsule,delayed release(DR/EC) 20 mg PO BID gabapentin 600 mg Tablet 0 mg PO BID Rx Instructions: HAS START DATE OF 05/18/23 gabapentin 600 mg Tablet 0 mg PO DAILY Rx Instructions: START DATE OF 05/11/23 tizanidine 4 mg Tablet 8 mg PO TID PRN (Reason: Other) buspirone [BuSpar] 10 mg Tablet 10 mg PO TID gabapentin 300 mg Capsule 300 mg PO DAILY gabapentin 300 mg Capsule 0 mg PO HS Rx Instructions: HAS START DATE OF 05/18/23 gabapentin 300 mg Capsule 0 mg PO TID Rx Instructions: START DATE OF 05/04/23 gabapentin 300 mg Capsule 0 mg PO BID Rx Instructions: START DATE 04/27/23 metoprolol succinate 25 mg Tablet Extended Release 24 Hr 25 mg PO BID oxaprozin 600 mg Tablet 600 mg PO BID Excedrin Migraine 250-250-65 mg Tablet 1 tab PO BID PRN (Reason: Migraine Headache) gabapentin 300 mg Tablet 0 mg PO BID Rx Instructions: START DATE OF 05/11/2023 Nurtec ODT 75 mg Tablet,Disintegrating 75 mg PO DAILY MDD 75MG IN 24 HOURS PRN (Reason: Migraine Headache) Referrals Referrals: [facility] [Primary Care Provider] -
[2023-06-06] MEDS ORDERED: KETOROLAC 30 MG/ML VIAL IV ONE (22:09)
[2023-06-07] MEDS ORDERED: HYDROmorphone INJ 0.5 MG/0.5 ML SYR IV STA (02:16)
--- NOTE | 2023-06-07 02:51 | History & Physical Report ---
Date of Service June 07, 2023 Assessment & Plan (1) Intractable migraine: Plan: A 43-year-old female with past medical history significant for MTHFR gene mutation, mild persistent asthma, GERD without esophagitis, polyarthritis, spina bifida of cervical region with hydrocephalus, uncomplicated opioid dependence, history of intractable migraine, trigeminal neuralgia, tobacco use disorder, history of Chiari malformation presents with intractable headache. Intractable headache History of migraines Her home migraine medication not helping Received IV Tylenol, IV Compazine, IV Benadryl, IV Toradol ,IV Decadron and IV magnesium in ER Still complains of headache CT head okay We will observe in the hospital Continue IV fluids and clear liquid diet IV Dilaudid as needed Continue home as needed migraine medications If not improving we will consider further imaging and/or neuro consult GERD on omeprazole DVT prophylaxis Lovenox for now Disposition observe in medical floor Full code History of Present Illness Chief Complaint: Severe headache Primary Care Provider: [facility] A 43-year-old female with past medical history significant for MTHFR gene mutation, mild persistent asthma, GERD without esophagitis, polyarthritis, spina bifida of cervical region with hydrocephalus, uncomplicated opioid dependence, history of intractable migraine, trigeminal neuralgia, tobacco use disorder, history of Chiari malformation presented with intractable headache. Patient states headache started 2 to 3 days ago mostly back of the head severe in nature also with nausea, lights bothering her, seems her migraine medications not working. In the ER she receivedIV Tylenol, Compazine, Decadron, IV Benadryl, IV Toradol and IV magnesium and fluids and she still complaining of significant headache. Patient states she was given Dilaudid in the past and that helped her. No runny nose or sore throat or cough. Afebrile. No chest pain or shortness of breath. No abdominal pain. Normal bowel and bladder movements. Currently hemodynamically stable Past medical history as mentioned above Past surgical history EGDs, bilateral knee arthroscopy, laparoscopic cholecystectomy, ligation of oviducts, Chiari decompression in 2007. Family history Significant for father has diabetes, hypertension; mother has knee problems, hypertension, diabetes. Maternal grandmother has diabetes. Maternal grandfather had lung cancer as a minor. Maternal grandmother has pancreatic cancer. Maternal grandfather has rheumatoid arthritis. Social history. History of smoking half pack cigarettes for last 20 years. No alcohol or drug use as per records Allergies Allergy/AdvReac Type Severity Reaction Status Date / Time pregabalin AdvReac Intermediate Vision Verified 06/07/23 02:02 changes. Home Medications Medication Instructions Recorded Confirmed Type sumatriptan 20 mg/actuation nasal 1 spray intranasal UD PRN Migraine 01/08/19 06/07/23 History spray (Imitrex) Headache rimegepant 75 mg disintegrating 75 mg PO DAILY PRN Migraine 04/22/23 06/07/23 History tablet (Nurtec ODT) Headache buspirone 10 mg tablet 10 mg PO TID 06/07/23 06/07/23 History gabapentin 600 mg tablet 600 mg PO TID 06/07/23 06/07/23 History omeprazole 20 mg capsule,delayed 20 mg PO BID 06/07/23 06/07/23 History release oxaprozin 600 mg tablet 1,200 mg PO QAM 06/07/23 06/07/23 History tizanidine 4 mg tablet 8 mg PO TID PRN Muscle Spasm 06/07/23 06/07/23 History Past Med/Surg History Medical History (Updated 06/07/23 @ 00:59 by Mary Leal MD) History of Chiari malformation Migraine Spina bifida Trigeminal neuralgia of right side of face Surgical History Hx of cholecystectomy Social History Smoking Status: Never smoker Tobacco Type: Cigarettes Second Hand Exposure: Yes; Do You Dip or Chew Tobacco: No; Hx Alcohol Use: No Hx Substance Use: Yes Preferred Language: Sinhala Communication Ability: Effective Manager Security And Safety Required: No Beliefs That Will Affect Care: None marital status: Single Current Living Situation: Other How many Children do You have: 0 Feels Safe at Home: Yes Assistive Devices: Denture - Upper and Denture - Lower Review of Systems Review of Systems: All systems reviewed & are unremarkable except as noted in HPI & below Physical Exam Physical Exam: General- Not in acute distress. Seems innpain Head- atraumatic Eyes- PERRLA, ENT- oropharynx clear Neck- supple, no JVD, . Lungs- clear to auscultation no added sounds. Heart- regular rhythm; no murmur, no gallop. Abdomen- normal bowel sounds, soft, nontender, no masses or hepatosplenomegaly Extremities- no pretibial edema, no erythema seen. Neuro- alert, oriented PERRL no facial palsy; no dysarthria; insighht ok. obeys command, moves extremities. able to lift extremities Skin- warm & dry Results & Data Results & Data Vital Signs (Past 12 Hours) Vital Signs Pulse Resp BP Pulse Ox O2 Del Method 06/07/23 02:01 86 20 140/101 H 100 Room Air 06/07/23 00:06 74 18 156/104 H 100 Room Air 06/06/23 22:26 81 20 173/108 H 100 Room Air 06/06/23 20:13 71 20 146/107 H 99 Room Air Diagnostic Findings Laboratory Results WBC 11.77 K/ul (4.8-10.8) H 06/06/23 17: RBC 3.99 M/uL (4.20-5.40) L 06/06/23 17: Hgb 12.6 g/dl (12.0-16.0) 06/06/23 17: Hct 38.0 % (37.0-47.0) 06/06/23 17: MCV 95.2 fL (80.0-100.0) 06/06/23 17: MCH 31.6 pg (25.0-34.0) 06/06/23 17: MCHC 33.2 g/dL (32.0-36.0) 06/06/23 17: RDW Std Deviation 43.7 fL (36.4-46.3) 06/06/23: RDW Coeff of Gabriel 12.5 % (11.5-14.5) 06/06/23 17: Plt Count 331 K/uL (130-400) 06/06/23: MPV 10.3 fL (9.4-12.4) 06/06/23: Immature Gran % (Auto) 0.3 % 06/06/23 17: Neut % (Auto) 69.9 % 06/06/23 17: Lymph % (Auto) 15.2 % 06/06/23: [place] % (Auto) 6.4 % 06/06/23 17:28 Eos % (Auto) 7.4 % 06/06/23 17:28 Baso % (Auto) 0.8 % 06/06/23 17: Neut # (Auto) 8.23 K/uL (1.40-6.50) H 06/06/23 17: Lymph # (Auto) 1.79 K/uL (1.2-3.4) 06/06/23 17: [place] # (Auto) 0.75 K/uL (0.11-0.59) H 06/06/23 17:28 Eos # (Auto) 0.87 K/uL (0-0.50) H 06/06/23 17: Baso # (Auto) 0.10 K/uL (0-0.2) 06/06/23 17: Immature Gran # (Auto) 0.03 K/uL (0.01-0.20) 06/06/23 17:28 Sodium 139 mmol/L (136-145) 06/06/23 17: Potassium 4.0 mmol/L (3.5-5.1) 06/06/23 17: Chloride 101 mmol/L (98-107) 06/06/23 17:28 Carbon Dioxide 23 mmol/L (21-32) 06/06/23 17:28 Anion Gap 15 (3-11) H 06/06/23 17:28 BUN 23 mg/dl (6-23) 06/06/23 17:28 Creatinine 1.15 mg/dl (0.6-1.2) 06/06/23 17:28 Est Cr Clr Drug Dosing 69.6 ml/min 06/06/23 17:28 Est GFR ( Amer) 67.5 ml/min 06/06/23 17:28 Est GFR (Non-Af Amer) 58.2 ml/min 06/06/23 17:28 BUN/Creatinine Ratio 20.0 (10-20) 06/06/23 17:28 Glucose 71 mg/dl (70-99(Fasting)) 06/06/23 17:28 Calcium 9.9 mg/dl (8.6-10.3) 06/06/23 17:28 Total Bilirubin 0.3 mg/dl (0.2-1.0) 06/06/23 17:28 AST 23 U/L (13-39) 06/06/23 17:28 ALT 25 U/L (7-52) 06/06/23 17:28 Alkaline Phosphatase 58 U/L (34-104) 06/06/23 17:28 Total Protein 7.9 gm/dl (6.0-8.3) 06/06/23 17:28 Albumin 4.9 gm/dl (3.4-5.0) 06/06/23 17:28 Globulin 3.0 gm/dl (2.5-4.0) 06/06/23 17:28 Albumin/Globulin Ratio 1.6 (0.9-2) 06/06/23 17:[address] 06/06/23 14:54 CT SCAN OF THE CERVICAL SPINE CLINICAL HISTORY: Fall. Neck pain. COMPARISON STUDY: CT of the cervical spine dated 07/20/2017. TECHNIQUE: CT scan of the cervical spine is performed from the skull base to the upper thoracic spine. Images are reviewed in the axial, sagittal, and coronal planes. IV contrast was not administered for this examination. A dose lowering technique was utilized adhering to the principles of ALARA. FINDINGS: Skeletal structures: The skeletal structures are well mineralized. There is no evidence of fracture or subluxation involving the cervical spine. The posterior ring of C1 is congenitally versus surgically absent. Vertebral body height and alignment are maintained. There is straightening of the cervical lordosis. The odontoid process and lateral masses are intact. The atlantoaxial articulation is preserved. The spinous processes appear intact. Intervertebral discs: The disc spaces are well maintained. Central canal: Widely patent. Soft tissues: The prevertebral and paraspinous soft tissues are within normal limits. Calvarium: There is postsurgical change from occipital craniectomy. Brain parenchyma: Partially visualized brain parenchyma at the skull base is within normal limits. Sinuses and mastoids: The visualized paranasal sinuses are clear. There is trace left mastoid effusion. The right mastoid air cells are well pneumatized. Lung apices: Clear as visualized. IMPRESSION: There is no evidence of fracture or subluxation involving the cervical spine. ACT 112: Negative or not required by law. Electronically signed by: Dustin Nowak M.D. 06/06/2023 5:[address] 06/06/23 14:54 CT SCAN OF THE BRAIN WITHOUT IV CONTRAST CLINICAL HISTORY: Fall. Head injury. COMPARISON STUDY: CT of the brain dated 04/22/2023. TECHNIQUE: Unenhanced axial CT scan of the brain is performed from the vertex to the skull base. A dose lowering technique was utilized adhering to the principles of ALARA. CT DOSE: 1077.39 mGy.cm FINDINGS: Brain parenchyma: The brain parenchyma is normal in appearance. There is no hemorrhage, mass effect, or evidence of acute territorial ischemia by CT criteria. Toro-white matter differentiation is preserved. No extra-axial fluid collection is seen. Ventricles, sulci, cisterns: Normal in configuration. Intracranial vasculature: The visualized intracranial vasculature at the skull base is normal in appearance. Calvarium: There is postsurgical change from occipital craniectomy. No depressed calvarial fracture is identified. Sinuses and mastoids: The visualized paranasal sinuses are clear. The mastoid air cells are well pneumatized. Orbits: The bony orbits are grossly intact. IMPRESSION: No acute intracranial abnormality. ACT 112: Negative or not required by law. Electronically signed by: Dustin Nowak M.D. 06/06/2023 5:29 PM Code Status & VTE Plan VTE Prophylaxis Plan VTE Prophylaxis will be ordered: Yes
[2023-06-07] MEDS ORDERED: SODIUM CHLORIDE 0.9% 1000ML 1,000 ML IV SCH (04:13)
[2023-06-07] MEDS ORDERED: ONDANSETRON INJ 2 MG/ML 2 ML VIAL IV PRN (04:13)
[2023-06-07] MEDS ORDERED: HYDROmorphone INJ 0.5 MG/0.5 ML SYR IV PRN (04:13)
[2023-06-07] MEDS ORDERED: hydrALAZINE HCL 20 MG/ML VIAL IV PRN (08:10)
[2023-06-07 08:54] LABS: Basophils # (auto) 0.04 K/uL (0-0.2); Basophils % (auto) 0.4 %; Eosinophils % (auto) 0.9 %; Hematocrit (blood only) 37.1 % (37.0-47.0); Hemoglobin 12.2 g/dl (12.0-16.0); Immature Granulocytes # (auto) 0.03 K/uL (0.01-0.20); Immature Granulocytes % (auto) 0.3 %; Lymphocytes # (auto) 1.71 K/uL (1.2-3.4); Lymphocytes % (auto) 15.2 %; Mean Corpuscular Hemoglobin 31.3 pg (25.0-34.0); Mean Corpuscular Hgb Conc 32.9 g/dL (32.0-36.0); Mean Corpuscular Volume 95.1 fL (80.0-100.0); Mean Platelet Volume 10.3 fL (9.4-12.4); Monocytes # (auto) 0.65 K/uL (0.11-0.59); Monocytes % (auto) 5.8 %; Neutrophils % (auto) 77.4 %; Platelet Count 300 K/uL (130-400); RDW Coefficient of Variation 12.5 % (11.5-14.5); RDW Standard Deviation 43.3 fL (36.4-46.3); White Blood Count 11.23 K/ul (4.8-10.8)
[2023-06-07 09:07] LABS: BUN Creatinine Ratio 18.8 (10-20); Calcium 9.2 mg/dl (8.6-10.3); Creatinine Clr Calc Pharmacy 84.6 ml/min; Est GFR (Non-African American) 72.4 ml/min; Potassium 4.2 mmol/L (3.5-5.1)
[2023-06-07] MEDS: amLODIPine BESYLATE 5 MG TAB PO SCH (09:34)
[2023-06-07] MEDS: GABAPENTIN 600 MG TAB PO SCH ×3 (09:35→20:55)
[2023-06-07] MEDS: busPIRone 5 MG TAB PO SCH ×3 (09:35→20:54)
[2023-06-07] MEDS: PANTOprazole 40 MG TAB PO SCH ×2 (09:35→20:55)
[2023-06-07] MEDS: ENOXAPARIN INJ 40 MG/0.4 ML SYR SQ SCH (09:35)
[2023-06-07] MEDS: LACTATED RINGER'S 1,000 ML IV SCH (09:37)
[2023-06-07] MEDS: OXAPROZIN 600 MG TAB PO SCH (11:14)
--- NOTE | 2023-06-07 14:47 | Neurology Consultation ---
Date of Consultation June 07, 2023 Assessment & Plan (1) Post-concussion headache: Headache consistent with migraine triggered by concussion vs post-concussive headache, will need time to resolve. Would not recommend any further change in outpatient headache regimen at this time. CT head and exam are otherwise unremarkable. No further inpatient neurologic workup. Telehealth Consultation Telehealth Information Telehealth Information: I performed this visit using a real-time telehealth connection between my location and the patients location ([facility]). After connecting through interactive tele-video, patient was identified by name and date of and/or wristband check.Patient (or authorized healthcare petroleum products sales representative) was informed that this was a telemedicine visit and it was being conducted confidentially over secure lines. My office door was closed and no one else was present in the room with me.Patient (or authorized healthcare petroleum products sales representative) provided consent to proceed with the visit, expressed an understanding of privacy and security of the telemedicine visit, and gave permission to have a hospital petroleum products sales representative in the room in order to assist with the visit and to conduct portions of the visit, as needed. I informed the patient (or authorized healthcare petroleum products sales representative) that I reviewed their record and presented the opportunity for them to ask any questions regarding the visit today. The patient agreed to participate. History of Present Illness Reason for Consultation: Migraine Requesting Physician: Dr. Ledezma Attending Physician: Eugenio Ledezma MD History of Present Illness [place] is a 43 yo F presenting after a fall in detention where she hit the back of her head while cleaning floors. After the fall she developed migraine symptoms typical of her usual migraine but in the back of her head. She has tingling down her right arm which is not new but worse than baseline. She has a history of NF with a chiari malformation s/p surgery and a complex migraine regimen of emgality, nurtec and high dose gabapentin though she just started the emgality a few weeks ago. She was given a migraine cocktail in the ED and reports that the dilaudid was helpful. Per nursing she has been sleeping comfortably throughout the day. She denies any other stroke like symptoms, no change in vision, no weakness or numbness. Since the fall she feels her thinking is slowed. Allergies Allergy/AdvReac Type Severity Reaction Status Date / Time pregabalin AdvReac Intermediate Vision Verified 06/07/23 02:02 changes. Home Medications Medication Instructions Recorded Confirmed Type sumatriptan 20 mg/actuation nasal 1 spray intranasal UD PRN Migraine 01/08/19 06/07/23 History spray (Imitrex) Headache rimegepant 75 mg disintegrating 75 mg PO DAILY PRN Migraine 04/22/23 06/07/23 History tablet (Nurtec ODT) Headache buspirone 10 mg tablet 10 mg PO TID 06/07/23 06/07/23 History gabapentin 600 mg tablet 600 mg PO TID 06/07/23 06/07/23 History omeprazole 20 mg capsule,delayed 20 mg PO BID 06/07/23 06/07/23 History release oxaprozin 600 mg tablet 1,200 mg PO QAM 06/07/23 06/07/23 History tizanidine 4 mg tablet 8 mg PO TID PRN Muscle Spasm 06/07/23 06/07/23 History Patient History Medical History (Updated 06/07/23 @ 14:54 by Emir Fox MD) History of Chiari malformation Migraine Spina bifida Trigeminal neuralgia of right side of face Surgical History Hx of cholecystectomy Social History Smoking Status: Never smoker Tobacco Type: Cigarettes Second Hand Exposure: Yes; Do You Dip or Chew Tobacco: No; Hx Alcohol Use: No Hx Substance Use: Yes Preferred Language: Uzbek Communication Ability: Effective Food Service Driver Required: No Beliefs That Will Affect Care: None marital status: Single Current Living Situation: Other How many Children do You have: 0 Feels Safe at Home: Yes Assistive Devices: Denture - Upper and Denture - Lower Review of Systems +headache Physical Exam Neurological Examination: Mental Status: Awake and alert. Oriented to person, place, and time. Fluent. Comprehension intact. Affect appropriate. Cranial Nerves: II: pupils 3/3 to 2/2, III/IV/: Versions intact without nystagmus, no gaze preference. V: Facial sensation symmetric to light touch VII: Facial expression symmetric VIII: Hearing intact to voice Motor: Strength was symmetric and antigravity throughout. There were no abnormal movements. Reflexes: Unable to assess over telemedicine Results & Data Vital Signs (Past 12 Hours) Vital Signs Temp Pulse Resp BP Pulse Ox O2 Del Method 06/07/23 07:23 72 15 154/116 H 100 Room Air 06/07/23 05:42 36.7 C 71 18 142/96 H 100 Room Air 06/07/23 04:01 70 18 164/100 H 100 Room Air Laboratory Results Abnormal lab results 06/06/23 06/06/23 06/07/23 Range/Units 17:28 17:28 08:30 WBC 11.77 H 11.23 H (4.8-10.8) K/ul RBC 3.99 L 3.90 L (4.20-5.40) M/uL Neut # (Auto) 8.23 H 8.70 H (1.40-6.50) K/uL [place] # (Auto) 0.75 H 0.65 H (0.11-0.59) K/uL Eos # (Auto) 0.87 H (0-0.50) K/uL Anion Gap 15 H (3-11) 06/07/23 Range/Units 08:30 WBC (4.8-10.8) K/ul RBC (4.20-5.40) M/uL Neut # (Auto) (1.40-6.50) K/uL [place] # (Auto) (0.11-0.59) K/uL Eos # (Auto) (0-0.50) K/uL Anion Gap 12 H (3-11) Diagnostic Findings Cervical Spine CT 06/06/23 14:54 CT SCAN OF THE CERVICAL SPINE CLINICAL HISTORY: Fall. Neck pain. COMPARISON STUDY: CT of the cervical spine dated 07/20/2017. TECHNIQUE: CT scan of the cervical spine is performed from the skull base to the upper thoracic spine. Images are reviewed in the axial, sagittal, and coronal planes. IV contrast was not administered for this examination. A dose lowering technique was utilized adhering to the principles of ALARA. FINDINGS: Skeletal structures: The skeletal structures are well mineralized. There is no evidence of fracture or subluxation involving the cervical spine. The posterior ring of C1 is congenitally versus surgically absent. Vertebral body height and alignment are maintained. There is straightening of the cervical lordosis. The odontoid process and lateral masses are intact. The atlantoaxial articulation is preserved. The spinous processes appear intact. Intervertebral discs: The disc spaces are well maintained. Central canal: Widely patent. Soft tissues: The prevertebral and paraspinous soft tissues are within normal limits. Calvarium: There is postsurgical change from occipital craniectomy. Brain parenchyma: Partially visualized brain parenchyma at the skull base is within normal limits. Sinuses and mastoids: The visualized paranasal sinuses are clear. There is trace left mastoid effusion. The right mastoid air cells are well pneumatized. Lung apices: Clear as visualized. IMPRESSION: There is no evidence of fracture or subluxation involving the cervical spine. ACT 112: Negative or not required by law. Electronically signed by: Dustin Nowak M.D. 06/06/2023 5:[address] 06/06/23 14:54 CT SCAN OF THE BRAIN WITHOUT IV CONTRAST CLINICAL HISTORY: Fall. Head injury. COMPARISON STUDY: CT of the brain dated 04/22/2023. TECHNIQUE: Unenhanced axial CT scan of the brain is performed from the vertex to the skull base. A dose lowering technique was utilized adhering to the principles of ALARA. CT DOSE: 1077.39 mGy.cm FINDINGS: Brain parenchyma: The brain parenchyma is normal in appearance. There is no hemorrhage, mass effect, or evidence of acute territorial ischemia by CT criteria. Toro-white matter differentiation is preserved. No extra-axial fluid collection is seen. Ventricles, sulci, cisterns: Normal in configuration. Intracranial vasculature: The visualized intracranial vasculature at the skull base is normal in appearance. Calvarium: There is postsurgical change from occipital craniectomy. No depressed calvarial fracture is identified. Sinuses and mastoids: The visualized paranasal sinuses are clear. The mastoid air cells are well pneumatized. Orbits: The bony orbits are grossly intact. IMPRESSION: No acute intracranial abnormality. ACT 112: Negative or not required by law. Electronically signed by: Dustin Nowak M.D. 06/06/2023 5:29 PM
[2023-06-07] MEDS: tiZANidine HCL 4 MG TABLET PO PRN ×2 (14:48→20:52)
--- NOTE | 2023-06-07 15:16 | Hospitalist Progress Note ---
Date of Service June 07, 2023 Assessment & Plan (1) Intractable migraine: Plan: Patient is a 43 yr female with H/O MTHFR gene mutation, mild persistent asthma, GERD without esophagitis, polyarthritis, spina bifida of cervical region with hydrocephalus, uncomplicated opioid dependence, history of intractable migraine, trigeminal neuralgia, tobacco use disorder, history of Chiari malformation presents with intractable headache. Migraine Likely triggered by postconcussion headache. Hypertension likely contributing as well H/O Migraine Received IV Tylenol, IV Compazine, IV Benadryl, IV Toradol ,IV Decadron and IV magnesium in ER --CT Head:No acute intracranial abnormality. --CT neck:There is no evidence of fracture or subluxation involving the cervical spine. Received IV fluids Continue home medications Advance diet as tolerated Appreciate neurology input Hypertensive urgency Likely situational Started on amlodipine IV hydralazine as needed Monitor BP GERD Continue PPI Mood disorder Continue home medications DVT Px: Lovenox SQ Code Status Full Code Admission and Anticipated Discharge Date Admission Date: June 07, 2023 Subjective Patient is seen and examined at bedside States having right-sided headache, retrobulbar discomfort Denies any chest pain, dyspnea, dizziness, vomiting, abdominal pain Guards at bedside Discussed with neurology today Review of Systems Review of Systems: All systems reviewed & are unremarkable except as noted in Subjective Physical Exam Physical Exam: Physical Exam: Vitals signs as noted above General Appearance:Obese, no apparent distress Head: normocephalic, Atraumatic Eyes: normal inspection, EOMI Neck: supple, Trachea midline Respiratory/Chest: Normal breath sounds, CTA, No accessory muscle use Cardiovascular: S1, S2, No murmur Abdomen/GI:Soft, Non tender, Bowel sounds present Extremities/Musculoskeletal:normal inspection, no edema Neurologic/Psych:AAOX3, grossly no focal neurological deficits Skin: normal color, warm Results & Data Results & Data Vital Signs (Past 12 Hours) Vital Signs Temp Pulse Resp BP Pulse Ox O2 Del Method 06/07/23 15:04 37 C 88 18 164/76 H 98 Room Air 06/07/23 07:23 72 15 154/116 H 100 Room Air 06/07/23 05:42 36.7 C 71 18 142/96 H 100 Room Air 06/07/23 04:01 70 18 164/100 H 100 Room Air Laboratory Results Short CBC 06/06/23 06/07/23 Range/Units 17:28 08:30 WBC 11.77 H 11.23 H (4.8-10.8) K/ul Hgb 12.6 12.2 (12.0-16.0) g/dl Hct 38.0 37.1 (37.0-47.0) % Plt Count 331 300 (130-400) K/uL BMP 06/06/23 06/07/23 17:28 08:30 Sodium 139 139 Potassium 4.0 4.2 Chloride 101 104 Carbon Dioxide 23 23 BUN 23 18 Creatinine 1.15 0.96 Glucose 71 87 Calcium 9.9 9.2 Liver Function 06/06/23 Range/Units 17:28 Total Bilirubin 0.3 (0.2-1.0) mg/dl AST 23 (13-39) U/L ALT 25 (7-52) U/L Alkaline Phosphatase 58 (34-104) U/L Albumin 4.9 (3.4-5.0) gm/dl
[2023-06-07] MEDS: ACETAMINOPHEN 1,000 MG/100 ML VIAL IV PRN (19:22)
[2023-06-07] MEDS: HYDROmorphone INJ 0.5 MG/0.5 ML SYR IV PRN (19:22)
[2023-06-08] MEDS: LACTATED RINGER'S 1,000 ML IV SCH (00:02)
[2023-06-08] MEDS ORDERED: SUMAtriptan succinate 50 MG TAB PO STA (00:20)
[2023-06-08 05:59] LABS: Hematocrit (blood only) 33.5 % (37.0-47.0); Hemoglobin 11.4 g/dl (12.0-16.0); Mean Corpuscular Hemoglobin 31.8 pg (25.0-34.0); Mean Corpuscular Volume 93.6 fL (80.0-100.0); Mean Platelet Volume 10.5 fL (9.4-12.4); Platelet Count 268 K/uL (130-400); RDW Coefficient of Variation 12.7 % (11.5-14.5); RDW Standard Deviation 43.8 fL (36.4-46.3); Red Blood Count 3.58 M/uL (4.20-5.40); White Blood Count 8.08 K/ul (4.8-10.8)
[2023-06-08] MEDS ORDERED: Nursing to Pharmacy Communication SCH (06:00)
[2023-06-08 06:12] LABS: Calcium 9.4 mg/dl (8.6-10.3); Creatinine Clr Calc Pharmacy 77.4 ml/min; Est GFR (African American) 75.3 ml/min; Magnesium 1.7 mg/dl (1.7-2.4); Potassium 4.3 mmol/L (3.5-5.1)
[2023-06-08] MEDS: HYDROmorphone INJ 0.5 MG/0.5 ML SYR IV PRN (07:48)
[2023-06-08] MEDS: OXAPROZIN 600 MG TAB PO SCH (09:22)
[2023-06-08] MEDS: ACETAMINOPHEN 1,000 MG/100 ML VIAL IV PRN (09:27)
[2023-06-08] MEDS: amLODIPine BESYLATE 5 MG TAB PO SCH (09:28)
[2023-06-08] MEDS: GABAPENTIN 600 MG TAB PO SCH (09:28)
[2023-06-08] MEDS: ENOXAPARIN INJ 40 MG/0.4 ML SYR SQ SCH (09:28)
[2023-06-08] MEDS: PANTOprazole 40 MG TAB PO SCH (09:28)
[2023-06-08] MEDS: busPIRone 5 MG TAB PO SCH (09:54)
--- NOTE | 2023-06-08 13:10 | Hospitalist Progress Note ---
Date of Service June 08, 2023 Assessment & Plan (1) Intractable migraine: Plan: Patient is a 43 yr female with H/O MTHFR gene mutation, mild persistent asthma, GERD without esophagitis, polyarthritis, spina bifida of cervical region with hydrocephalus, uncomplicated opioid dependence, history of intractable migraine, trigeminal neuralgia, tobacco use disorder, history of Chiari malformation presents with intractable headache. Migraine Likely triggered by postconcussion headache. Hypertension likely contributing as well H/O Migraine Received IV Tylenol, IV Compazine, IV Benadryl, IV Toradol ,IV Decadron and IV magnesium in ER --CT Head:No acute intracranial abnormality. --CT neck:There is no evidence of fracture or subluxation involving the cervical spine. Received IV fluids Continue home medications Tolerated regular diet Appreciate neurology input Advised to follow-up with neurology as outpatient upon discharge if no improvement of symptoms. Hypertensive urgency Likely situational Started on amlodipine IV hydralazine as needed Monitor BP BP better GERD Continue PPI Mood disorder Continue home medications DVT Px: Lovenox SQ Code Status Full Code Disposition [facility] Admission and Anticipated Discharge Date Admission Date: June 07, 2023 Subjective Patient is seen and examined at bedside Headache much improved No new complaints Blood pressure better Denies any chest pain, dyspnea, dizziness, vomiting, abdominal pain Guards at bedside Plan to discharge back to correctional facility today Review of Systems Review of Systems: All systems reviewed & are unremarkable except as noted in Subjective Physical Exam Physical Exam: Physical Exam: Vitals signs as noted above General Appearance:Obese, no apparent distress Head: normocephalic, Atraumatic Eyes: normal inspection, EOMI Neck: supple, Trachea midline Respiratory/Chest: Normal breath sounds, CTA, No accessory muscle use Cardiovascular: S1, S2, No murmur Abdomen/GI:Soft, Non tender, Bowel sounds present Extremities/Musculoskeletal:normal inspection, no edema Neurologic/Psych:AAOX3, grossly no focal neurological deficits Skin: normal color, warm Results & Data Results & Data Vital Signs (Past 12 Hours) Vital Signs Pulse Resp BP Pulse Ox O2 Del Method 06/08/23 09:00 68 18 156/86 H 100 Room Air 06/08/23 04:24 60 16 132/88 100 Room Air Laboratory Results Short CBC 06/08/23 Range/Units 05:30 WBC 8.08 (4.8-10.8) K/ul Hgb 11.4 L (12.0-16.0) g/dl Hct 33.5 L (37.0-47.0) % Plt Count 268 (130-400) K/uL [facility] 06/08/23 05:30 Sodium 138 Potassium 4.3 Chloride 104 Carbon Dioxide 28 BUN 20 Creatinine 1.05 Glucose 95 Calcium 9.4
--- NOTE | 2023-06-08 13:16 | Discharge Summary ---
Date of Service June 08, 2023 Admission HPI Per Admitting Provider A 43-year-old female with past medical history significant for MTHFR gene mutation, mild persistent asthma, GERD without esophagitis, polyarthritis, spina bifida of cervical region with hydrocephalus, uncomplicated opioid dependence, history of intractable migraine, trigeminal neuralgia, tobacco use disorder, history of Chiari malformation presented with intractable headache. Patient states headache started 2 to 3 days ago mostly back of the head severe in nature also with nausea, lights bothering her, seems her migraine medications not working. In the ER she receivedIV Tylenol, Compazine, Decadron, IV Benadryl, IV Toradol and IV magnesium and fluids and she still complaining of significant headache. Patient states she was given Dilaudid in the past and that helped her. No runny nose or sore throat or cough. Afebrile. No chest pain or shortness of breath. No abdominal pain. Normal bowel and bladder movements. Currently hemodynamically stable Past medical history as mentioned above Past surgical history EGDs, bilateral knee arthroscopy, laparoscopic cholecystectomy, ligation of oviducts, Chiari decompression in 2007. Family history Significant for father has diabetes, hypertension; mother has knee problems, hypertension, diabetes. Maternal grandmother has diabetes. Maternal grandfather had lung cancer as a minor. Maternal grandmother has pancreatic cancer. Maternal grandfather has rheumatoid arthritis. Social history. History of smoking half pack cigarettes for last 20 years. No alcohol or drug use as per records Admission Exam Per Admitting Provider General- Not in acute distress. Seems innpain Head- atraumatic Eyes- PERRLA, ENT- oropharynx clear Neck- supple, no JVD, . Lungs- clear to auscultation no added sounds. Heart- regular rhythm; no murmur, no gallop. Abdomen- normal bowel sounds, soft, nontender, no masses or hepatosplenomegaly Extremities- no pretibial edema, no erythema seen. Neuro- alert, oriented PERRL no facial palsy; no dysarthria; insighht ok. obeys command, moves extremities. able to lift extremities Skin- warm & dry Principal Diagnosis Migraine Postconcussion Headache Hypertensive urgency Discharge Data Allergies Allergy/AdvReac Type Severity Reaction Status Date / Time pregabalin AdvReac Intermediate Vision Verified 06/07/23 02:02 changes. Consultations 06/07/23 00:59 ED Decision to Admit Stat 06/07/23 08:07 Consult Neurology Routine Procedures Performed Laboratory Results WBC 8.08 K/ul (4.8-10.8) 06/08/23 05:30 RBC 3.58 M/uL (4.20-5.40) L 06/08/23 05:30 Hgb 11.4 g/dl (12.0-16.0) L 06/08/23 05:30 Hct 33.5 % (37.0-47.0) L 06/08/23 05:30 MCV 93.6 fL (80.0-100.0) 06/08/23 05:30 MCH 31.8 pg (25.0-34.0) 06/08/23 05:30 MCHC 34.0 g/dL (32.0-36.0) 06/08/23 05:30 RDW Std Deviation 43.8 fL (36.4-46.3) 06/08/23 05:30 RDW Coeff of Gabriel 12.7 % (11.5-14.5) 06/08/23 05:30 Plt Count 268 K/uL (130-400) 06/08/23 05:30 MPV 10.5 fL (9.4-12.4) 06/08/23 05:30 Immature Gran % (Auto) 0.3 % 06/07/23 08:30 Neut % (Auto) 77.4 % 06/07/23 08:30 Lymph % (Auto) 15.2 % 06/07/23 08:30 Hopkins % (Auto) 5.8 % 06/07/23 08:30 Eos % (Auto) 0.9 % 06/07/23 08:30 Baso % (Auto) 0.4 % 06/07/23 08:30 Neut # (Auto) 8.70 K/uL (1.40-6.50) H 06/07/23 08:30 Lymph # (Auto) 1.71 K/uL (1.2-3.4) 06/07/23 08:30 Hopkins # (Auto) 0.65 K/uL (0.11-0.59) H 06/07/23 08:30 Eos # (Auto) 0.10 K/uL (0-0.50) 06/07/23 08:30 Baso # (Auto) 0.04 K/uL (0-0.2) 06/07/23 08:30 Immature Gran # (Auto) 0.03 K/uL (0.01-0.20) 06/07/23 08:30 Sodium 138 mmol/L (136-145) 06/08/23 05:30 Potassium 4.3 mmol/L (3.5-5.1) 06/08/23 05:30 Chloride 104 mmol/L (98-107) 06/08/23 05:30 Carbon Dioxide 28 mmol/L (21-32) 06/08/23 05:30 Anion Gap 6 (3-11) 06/08/23 05:30 BUN 20 mg/dl (6-23) 06/08/23 05:30 Creatinine 1.05 mg/dl (0.6-1.2) 06/08/23 05:30 Est Cr Clr Drug Dosing 77.4 ml/min 06/08/23 05:30 Est GFR ( Amer) 75.3 ml/min 06/08/23 05:30 Est GFR (Non-Af Amer) 65.0 ml/min 06/08/23 05:30 BUN/Creatinine Ratio 19.0 (10-20) 06/08/23 05:30 Glucose 95 mg/dl (70-99(Fasting)) 06/08/23 05:30 Calcium 9.4 mg/dl (8.6-10.3) 06/08/23 05:30 Magnesium 1.7 mg/dl (1.7-2.4) 06/08/23 05:30 Total Bilirubin 0.3 mg/dl (0.2-1.0) 06/06/23 17:28 AST 23 U/L (13-39) 06/06/23 17:28 ALT 25 U/L (7-52) 06/06/23 17:28 Alkaline Phosphatase 58 U/L (34-104) 06/06/23 17:28 Total Protein 7.9 gm/dl (6.0-8.3) 06/06/23 17:28 Albumin 4.9 gm/dl (3.4-5.0) 06/06/23 17:28 Globulin 3.0 gm/dl (2.5-4.0) 06/06/23 17:28 Albumin/Globulin Ratio 1.6 (0.9-2) 06/06/23 17:28 Nasal Screen MRSA (PCR) Negative (Negative) 06/07/23 15:13 SARS-CoV-2, RNA, NAAT NEGATIVE (NEGATIVE) 06/07/23 08:[address] 06/06/23 14:54 CT SCAN OF THE CERVICAL SPINE CLINICAL HISTORY: Fall. Neck pain. COMPARISON STUDY: CT of the cervical spine dated 07/20/2017. TECHNIQUE: CT scan of the cervical spine is performed from the skull base to the upper thoracic spine. Images are reviewed in the axial, sagittal, and coronal planes. IV contrast was not administered for this examination. A dose lowering technique was utilized adhering to the principles of ALARA. FINDINGS: Skeletal structures: The skeletal structures are well mineralized. There is no evidence of fracture or subluxation involving the cervical spine. The posterior ring of C1 is congenitally versus surgically absent. Vertebral body height and alignment are maintained. There is straightening of the cervical lordosis. The odontoid process and lateral masses are intact. The atlantoaxial articulation is preserved. The spinous processes appear intact. Intervertebral discs: The disc spaces are well maintained. Central canal: Widely patent. Soft tissues: The prevertebral and paraspinous soft tissues are within normal limits. Calvarium: There is postsurgical change from occipital craniectomy. Brain parenchyma: Partially visualized brain parenchyma at the skull base is within normal limits. Sinuses and mastoids: The visualized paranasal sinuses are clear. There is trace left mastoid effusion. The right mastoid air cells are well pneumatized. Lung apices: Clear as visualized. IMPRESSION: There is no evidence of fracture or subluxation involving the cervical spine. ACT 112: Negative or not required by law. Electronically signed by: Dustin Nowak M.D. 06/06/2023 5:[address] 06/06/23 14:54 CT SCAN OF THE BRAIN WITHOUT IV CONTRAST CLINICAL HISTORY: Fall. Head injury. COMPARISON STUDY: CT of the brain dated 04/22/2023. TECHNIQUE: Unenhanced axial CT scan of the brain is performed from the vertex to the skull base. A dose lowering technique was utilized adhering to the principles of ALARA. CT DOSE: 1077.39 mGy.cm FINDINGS: Brain parenchyma: The brain parenchyma is normal in appearance. There is no hemorrhage, mass effect, or evidence of acute territorial ischemia by CT criteria. Toro-white matter differentiation is preserved. No extra-axial fluid collection is seen. Ventricles, sulci, cisterns: Normal in configuration. Intracranial vasculature: The visualized intracranial vasculature at the skull base is normal in appearance. Calvarium: There is postsurgical change from occipital craniectomy. No depressed calvarial fracture is identified. Sinuses and mastoids: The visualized paranasal sinuses are clear. The mastoid air cells are well pneumatized. Orbits: The bony orbits are grossly intact. IMPRESSION: No acute intracranial abnormality. ACT 112: Negative or not required by law. Electronically signed by: Dustin Nowak M.D. 06/06/2023 5:29 PM Ordered Studies 06/06/23 14:54 CT cervical spine wo con Stat CT head/brain wo con Stat Hospital Course (1) Intractable migraine: Patient is a 43 yr female with H/O MTHFR gene mutation, mild persistent asthma, GERD without esophagitis, polyarthritis, spina bifida of cervical region with hydrocephalus, uncomplicated opioid dependence, history of intractable migraine, trigeminal neuralgia, tobacco use disorder, history of Chiari malformation presents with intractable headache. Migraine Likely triggered by postconcussion headache. Hypertension likely contributing as well H/O Migraine Received IV Tylenol, IV Compazine, IV Benadryl, IV Toradol ,IV Decadron and IV magnesium in ER --CT Head:No acute intracranial abnormality. --CT neck:There is no evidence of fracture or subluxation involving the cervical spine. Received IV fluids Continue home medications Tolerated regular diet Appreciate neurology input Advised to follow-up with neurology as outpatient upon discharge if no improvement of symptoms. Hypertensive urgency Likely situational Started on amlodipine IV hydralazine as needed Monitor BP BP better GERD Continue PPI Mood disorder Continue home medications DVT Px: Lovenox SQ Code Status Full Code Disposition [facility] facility Total Time Total Time Spent Total Time Spent (In Minutes): 55 minutes Discharge Plan Discharge Items Patient Disposition: [facility] Reason For Visit: SEVERE HEADACHE Discharge Diagnosis: Migraine Postconcussion Headache Hypertensive urgency Activity: Per Instructions section Exercise/Sports: Gradually increase as tolerated Non-emergency contact: Primary Care Provider and Neurologist Call non-emergency contact if: you have any medication questions, your symptoms worsen, your pain is concerning for you and you have a fever Follow-up/Referrals: [facility] [Primary Care Provider] - Diet: Heart Healthy Addtl Attending Provider Instructions: Follow-up with your primary care physician in 1 week Consider following with a neurologist if no improvement of your headache in 4 to 6 weeks. --Start taking amlodipine 5 mg daily for better control of blood pressure. --Monitor your blood pressure regularly. Discuss with your physician for further adjustment of medications as needed. Seek immediate medical attention if your symptoms reoccur or worsen Please take all medications as instructed on discharge list below. Please call if you have any questions or problems. You can reach a [facility] hospitalist on duty at [facility] 24 hours a day by calling [phone] Pending Studies at Discharge: No Skilled Items Patient informed of condition?: Yes DNR: No Discharge Level of Care: Other Communicable Disease: No Discharge Prognosis: Stable Lines: None Urinary Catheter: No Medications and DC Order Prescriptions: New amlodipine [Norvasc] 5 mg Tablet 5 mg PO QAM Qty: 30 0RF Continued sumatriptan [Imitrex] 20 mg/actuation spray,non-aerosol 1 spray intranasal UD MDD 40MG PER 24 HOURS PRN (Reason: Migraine Headache) Rx Instructions: AT ONSET OF MIGRAINE gabapentin 600 mg Tablet 600 mg PO TID tizanidine 4 mg Tablet 8 mg PO TID PRN (Reason: Muscle Spasm) oxaprozin 600 mg Tablet 1,200 mg PO QAM buspirone [BuSpar] 10 mg Tablet 10 mg PO TID omeprazole [Prilosec] 20 mg Capsule,Delayed Release(Dr/Ec) 20 mg PO BID Nurtec ODT 75 mg Tablet,Disintegrating 75 mg PO DAILY MDD 75MG IN 24 HOURS PRN (Reason: Migraine Headache) Admission Data Admit Date/Time: 06/07/23 02:14 Attending Provider: Eugenio Ledezma Admit Provider: Abner Chamberlain Primary Care Provider: [facility] Other Providers: Alfonzo Kaufman Anthony
== END 2023-06-08 13:30 ==
LOC: ED 14:05 → EDINP 14:05 → SUATTDRO 06-07 02:14 → EDINP 06-07 04:13